=== PATIENT | male | born 1975 | race Caucasian/White ===

== ENCOUNTER 2018-02-05 14:24 | Emergency (ER) | payer MEDICAID, SELFPAY ==
[2018-02-05 14:25] VITALS: BP 154/84; PULSE 106; RESP 18; TEMP 36.6; O2SAT 99; BMI 34.2
--- NOTE | 2018-02-05 15:15 | ED.DEP ---
ED Disposition - Plan for ED Patient: Chief Complaint: Back Instructions: ED Neck Back Pain General Prescriptions: Naproxen [Naprosyn] 500 mg PO BID #14 tablet Cyclobenzaprine [Flexeril] 10 mg PO TID PRN #20 tablet PRN Reason: Muscle Spasm Referrals: Eric Pichardo DO [Primary Care Provider] -
--- NOTE | 2018-02-05 15:20 | ED.VISSUMM ---
- ER Visit Summary Date of Service: 02/05/18 Chief Complaint: Back pain History of Present Illness: The patient is a 42 M presenting with back pain. Patient states this started this morning. He has history of chronic back pain. He states it worsened this morning. He denies injury. Denies radiation. Denies weakness or numbness. Denies bowel or bladder incontinence. He states the pain was too severe for him to go to work today. He did not try any medications at home. Physical Examination: Vitals are stable. Patient is afebrile. Alert no acute distress. HEENT exam is unremarkable. Neck is supple. Lungs are clear and equal bilaterally. Heart is regular rate and rhythm. Abdomen is soft nontender nondistended. No rebound or guarding Back: bilateral paraspinal lumbar muscle tenderness, no midline tenderness Extremities are unremarkable. Skin is warm and dry. No focal neurologic deficit. Normal strength and sensation Remainder of exam is unremarkable. Emergency Department Course and Treatment: Patient is given morphine, Zofran IM. He is advised to follow-up with his primary care physician. He is given a prescription for Naprosyn and Flexeril. Advised return to ED if worsening complaints. Disposition: Discharge home Impression: Acute on chronic back pain This note was generated with [employer] dictation software. It may contain incorrect words, spelling, and punctuation that were not noted in review of the chart prior to signing ED Disposition - Plan for ED Patient: Chief Complaint: Back Instructions: ED Neck Back Pain General Prescriptions: Naproxen [Naprosyn] 500 mg PO BID #14 tablet Cyclobenzaprine [Flexeril] 10 mg PO TID PRN #20 tablet PRN Reason: Muscle Spasm Referrals: Eric Pichardo DO [Primary Care Provider] -
[2018-02-05] MEDS: morphine 10 MG/ML Syringe 8 MG IM (15:25)
[2018-02-05] MEDS: Ondansetron 4 MG/2 ML Vial IM (15:25)
[2018-02-05 15:49] VITALS: RESP 18; O2SAT 98
== END 2018-02-05 15:50 | disposition home or self-care (01) ==
PROVIDERS: Emergency Provider Emergency Medicine; Family Provider Student in an Organized Health Care Education/Training Program; PCP Student in an Organized Health Care Education/Training Program
DX: M54.5 Low back pain (principal); G89.29 Other chronic pain; K21.9 Gastro-esophageal reflux disease without esophagitis
CPT/HCPCS: 96372; 99282; J2405

== ENCOUNTER 2019-03-29 13:07 | Emergency (ER) | payer MEDICAID, SELFPAY ==
[2019-03-29 13:08] VITALS: BP 169/101; PULSE 100; RESP 18; TEMP 36.6; O2SAT 99; BMI 43.2
--- NOTE | 2019-03-29 13:20 | ED.VIS.GEN ---
History of Present Illness Chief Complaint: Lower Extremity Injury Informant: Patient Current Severity: Moderate Maximum Severity: Moderate Narrative: Patient presents with 2-month history of right hip pain. No known injury, he is able to ambulate it is on the side of his hip, he has no abdominal pain no groin tenderness. His pain is mild worse with movement. 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 Smoking Status: Former smoker Review of Systems Gastrointestinal: Denies: Abdominal pain Musculoskeletal: Reports: - - Right hip pain Skin: Denies: Wounds Neurological: Denies: Weakness Psych: Denies: Depression Hematologic: Denies: Easy bruising Physical Exam Vital Signs/Narrative: Vital Signs Temp Pulse Resp BP Pulse Ox 03/29/19 13:08 98 F 100 18 169/101 H 99 General: Well nourished Eyes: Perrl, - - Enucleated right eye ENT: Moist mucous membranes Cardiovascular: Regular rate Respiratory: No distress Abdomen: Soft Back: - - Nontender, no spinal or paraspinal Extremities: - - Tenderness over the right greater trochanter. There is some tenderness over the pelvis. Pelvis is intact. There is no SI joint tenderness in palpating the buttocks there is no groin tenderness and no tenderness with logrolling flexion or extension. Neurological: Normal Strength, Normal Sensation, Normal Gait Diagnostic/Tx/Re-eval - Medical Decision Making Patient is a normal x-ray. This is either IT band or bursitis in nature, regardless he will be treated conservatively and discharged with follow-up. ED Disposition - Plan for ED Patient: Disposition: Home or Assisted Living Diagnosis: Hip pain, Patient in stable condition at discharge Instructions: Lower Body Exercises: Hip Flexor Prescriptions: Naproxen [Naprosyn] 500 mg PO BID PRN #20 tab Prescription Printed Referrals: Eric Pichardo DO [Primary Care Provider] -
--- NOTE | 2019-03-29 13:28 | RAD_ITS ---
STUDY: X-RAY - PELVIS AND RIGHT HIP REASON FOR EXAM: Male, 43 years old. Pain. TECHNIQUE: 3 views of the pelvis and hip. COMPARISON: None. FINDINGS: There is a non-specific bowel gas pattern. Normal visualized soft tissue structures. Normal bilateral iliac wings, sacroiliac joints and visualized sacrum. Normal bilateral superior and inferior pubic rami. Normal pubic symphysis. Normal bilateral ischial tuberosities. Normal visualized femoral head. Normal acetabulum. Normal hip joint. RAD/HIP, UNI W/ Pelvis 2-3 Views IMPRESSION: Normal x-ray examination of the pelvis and hip. Electronically Signed: Nate Worthy, at 13:57 EST , Service support ,
[2019-03-29 13:57] VITALS: RESP 18
[2019-03-29 14:01] VITALS: RESP 18
== END 2019-03-29 14:09 | disposition home or self-care (01) ==
PROVIDERS: Emergency Provider Emergency Medicine; Family Provider Student in an Organized Health Care Education/Training Program; PCP Student in an Organized Health Care Education/Training Program
DX: M25.551 Pain in right hip (principal); Z87.891 Personal history of nicotine dependence
CPT/HCPCS: 73502; 99283

== ENCOUNTER 2019-06-29 14:21 | Emergency (ER) | payer MEDICAID, SELFPAY ==
[2019-06-29 14:22] VITALS: BP 155/93; PULSE 85; RESP 16; TEMP 36.6; O2SAT 97; BMI 42.5
[2019-06-29] MEDS: Tetracaine 0.5% Ophthalmic Bottle OPHTHALMIC (15:43)
[2019-06-29] MEDS: Fluorescein 1 MG STRIP 1 STRIP OPHTHALMIC (15:44)
--- NOTE | 2019-06-29 16:13 | ED.DCSUM_ITS ---
- ER Visit Summary Date of Service: 06/29/19 Chief Complaint: Left eye pain and redness History of Present Illness: The patient is a 44 M who presents with redness and pain to his left eye that has been getting worse over the past 4 days. Patient states he feels like there may be a foreign body in his eye. Patient is unsure if there is anything in his eye though. Patient admits to some redness and purulent drainage. Patient admits to some crusting and photophobia. Patient also admits to some blurred vision. Patient states he wears reading glasses. Physical Examination: Vital signs are stable. Patient is afebrile. Patient is in no acute distress. The left pupil is round and reactive. Conjunctiva is injected. There is no purulent discharge or drainage. Anterior chamber is clear. There is no hyphema. There are no foreign bodies visualized. Tetracaine and fluorescein dye was applied. There are no corneal abrasions. Funduscopic exam was not well visualized due to patient cooperation. Heart was regular rate and rhythm. Lungs are clear and equal bilaterally. Cranial nerves II through XII are intact. There are no focal motor or sensory deficits. Emergency Department Course and Treatment: Tetracaine and fluorescein dye was applied. There were no foreign bodies or corneal abrasions noted under slit- lamp examination. Patient was given a prescription for gentamicin ophthalmic drops. Patient was instructed to follow-up with his primary care physician in 1 to 2 days for reevaluation. Patient understood and was agreeable with the plan. All questions were answered. Disposition: Discharge home Impression: Conjunctivitis left eye This note was generated with [employer] dictation software. It may contain incorrect words, spelling, and punctuation that were not noted in review of the chart prior to signing ED Disposition - Plan for ED Patient: Disposition: Home or Assisted Living Diagnosis: Conjunctivitis Instructions: CONJUNCTIVITIS, Bacterial Prescriptions: Gentamicin Ophthalmic Drops [Garamycin Ophthalmic Drops] 2 drp LEFT EYE Q4 #1 [email or web address] Prescription Printed Referrals: Eric Pichardo DO [Primary Care Provider] - 2 Days
== END 2019-06-29 16:36 | disposition home or self-care (01) ==
PROVIDERS: Emergency Provider Emergency Medicine; PCP Student in an Organized Health Care Education/Training Program
DX: H10.9 Unspecified conjunctivitis (principal); K21.9 Gastro-esophageal reflux disease without esophagitis; F90.9 Attention-deficit hyperactivity disorder, unspecified type; F32.9 Major depressive disorder, single episode, unspecified; Z79.899 Other long term (current) drug therapy
CPT/HCPCS: 99283

== ENCOUNTER 2019-09-01 17:07 | Emergency (ER) | payer MEDICAID, SELFPAY ==
[2019-09-01 17:08] VITALS: BP 157/93; PULSE 109; RESP 14; TEMP 36.8; O2SAT 98; BMI 29.6
--- NOTE | 2019-09-01 17:23 | ED.VIS.GEN ---
History of Present Illness Chief Complaint: Laceration Informant: Patient Onset: Today Maximum Severity: Mild Narrative: Coronavirus?emergency no exposures, patient is right-hand dominant presents with laceration of only the palm of the left hand that occurred when he inadvertently fell striking his hand against a glass coffee table edge he does not believe any glasses in the wound, the glass did break, he has no loss of function no numbness weeks paresthesias laceration no other complaints Past Medical History - Allergies and Home Meds Allergies/Adverse Reactions: Allergies No Known Allergies Allergy (Verified 09/01/19 17:08) Primary Care Physician: Eric Pichardo DO [Primary Care Provider] - Past Medical History: - - Includes as above and none Smoking Status: Former smoker Review of Systems General: Denies: Chills, Fever, Sweats Eyes: Denies: Visual changes - bilaterally, Diplopia ENT: Denies: Rhinorrhea, Sore throat Cardiovascular: Denies: Chest pain, Palpitations Respiratory: Denies: Dyspnea, Cough, Dyspnea on exertion Gastrointestinal: Denies: Abdominal pain, Nausea, Vomiting, Diarrhea, Melena, Hematochezia Genitourinary: Denies: Dysuria, Hematuria, Frequency Musculoskeletal: Reports: Extremity Pain, - - Left hand there is a curvilinear laceration involving the palm of the left hand towards the knuckles he has full range of motion to the MCP PIP and DIP joint flexion extension of all digits thumb function is intact the wrist is nontender there is no bony injury there is no signs of any obvious foreign bodies. Denies: Back pain Skin: Denies: Rash, Wounds Neurological: Denies: Headache, Weakness, Numbness Physical Exam Vital Signs/Narrative: Vital Signs Temp Pulse Resp BP Pulse Ox 09/01/19 17:08 98.3 F 109 H 14 157/93 H 98 Extremities: - - Left hand there is a curvilinear laceration involving the palm of the left hand towards the knuckles he has full range of motion to the MCP PIP and DIP joint flexion extension of all digits thumb function is intact the wrist is nontender there is no bony injury there is no signs of any obvious foreign bodies Diagnostic/Tx/Re-eval - Medical Decision Making X-rays obtained showed no foreign body nothing acute per radiology see that report wound care standard dental prepped lidocaine local anesthetic prep no foreign body seen with nylon with good results bulky hand dressing wound care instructions given sutures out in 7 to 10 days return for change in symptoms concept was noted discussing the concept of occult injury such as to attention bone or other structure he understands he will be referred to plastic surgery for further management and wound suture removal Home stable Final impression 4 cm curvilinear laceration palm left hand ED Disposition - Plan for ED Patient: Instructions: ED Laceration All Closures, ED Laceration Hand Referrals: Eric Pichardo DO [Primary Care Provider] - Eligio Mederos MD [STAFF PHYSICIAN] -
--- NOTE | 2019-09-01 17:30 | RAD_ITS ---
STUDY: X-RAY - LEFT HAND REASON FOR EXAM: Male, 44 years old. Laceration from glass to anterior hand in area of 2nd metacarpal and to anterior thumb. TECHNIQUE: 3 view(s) of the hand. COMPARISON: None. FINDINGS: Normal radiocarpal articulation. Normal distal radioulnar joint. Normal visualized carpal bones. Normal carpal articulations Normal carpometacarpal articulation of the thumb. Normal second through fifth carpometacarpal joints. Normal metacarpi. Normal metacarpophalangeal joint of the thumb. Normal interphalangeal joint of the thumb. Normal proximal and distal phalanges of the thumb. Normal metacarpophalangeal joints of the second through fifth fingers. Normal proximal and distal interphalangeal joints of the second through fifth fingers. Normal phalanges of the second through fifth fingers. Borderline dorsal soft tissue swelling at the wrist. Submillimeter degenerative calcification projects in the soft tissues of the distal ulnocarpal joint space. No radiopaque foreign body. No demonstrated acute fracture. RAD/Hand Min 3 Views IMPRESSION: No radiopaque foreign body seen. No demonstrated acute fracture of the left hand. Electronically Signed: Juve Ruiz MD at 17:46 EDT , Service support ,
[2019-09-01 18:48] VITALS: RESP 16
== END 2019-09-01 18:48 | disposition home or self-care (01) ==
LOC: ED 17:56
PROVIDERS: Emergency Provider Emergency Medicine; PCP Student in an Organized Health Care Education/Training Program
DX: S61.412A Laceration without foreign body of left hand, initial encounter (principal); W25.XXXA Contact with sharp glass, initial encounter; Y93.9 Activity, unspecified; Y92.9 Unspecified place or not applicable; Z87.891 Personal history of nicotine dependence
CPT/HCPCS: 12002; 73130; 99283

== ENCOUNTER 2020-10-12 22:15 | Emergency (ER) | payer MEDICAID, SELFPAY ==
[2020-10-12 22:16] VITALS: BP 141/78; PULSE 124; RESP 16; TEMP 36.2; O2SAT 97; BMI 44.2
[2020-10-12 22:19] VITALS: BP 141/78; PULSE 124; RESP 16; TEMP 36.2; O2SAT 97
--- NOTE | 2020-10-12 22:44 | RAD_ITS ---
STUDY: X-RAY CHEST REASON FOR EXAM: Male, 45 years old. Cough TECHNIQUE: Single frontal view of the chest. COMPARISON: 09/02/2016 FINDINGS: The lungs are clear and expanded. There is no demonstrated pleural abnormality. Normal size heart. Normal mediastinum and hamida. Normal visualized pulmonary arteries. Normal visualized aortic arch and descending thoracic aorta. Normal visualized thoracic spine. Normal visualized ribs, clavicles, and shoulders. There is no demonstrated abnormality of the visualized soft tissue structures of the upper abdomen. RAD/Chest 1 View (Portable) IMPRESSION: Normal x-ray examination of the chest. Electronically Signed: Fabricio Armas MD at 23:42 EDT , Service support ,
--- NOTE | 2020-10-12 22:44 | CT_ITS ---
INDICATION: Left sided pain EXAMINATION: CT Abdomen And Pelvis W/O Contrast Injection TECHNIQUE: Helically acquired images were obtained of the abdomen and pelvis without the use of IV contrast. A radiation dose optimization technique was used for this scan. Oral contrast: None. COMPARISON: 05/15/2017 FINDINGS: Evaluation of the solid organs and vascular structures is limited without intravenous contrast. Visualized lung bases: Unremarkable Liver: Diffusely hypodense consistent with fatty liver. Gallbladder: Unremarkable Spleen: Multiple splenic granulomas. Pancreas: Unremarkable Adrenal Glands: Unremarkable Kidneys: Scattered too small to characterize subcentimeter hypodensities bilaterally. Mild bilateral nonspecific perinephric fat stranding. Vasculature: Unremarkable GI Tract: Unremarkable Lymphadenopathy: None Peritoneum: No ascites. Bladder: Unremarkable Reproductive organs: There are prostatic calcifications. Bones/Soft tissues: Mild scattered degenerative changes of the visualized spine. CT/Abdomen/Pelvis without Cont IMPRESSION: No acute abnormalities in the abdomen or pelvis. Mild bilateral nonspecific perinephric fat stranding. Fatty liver. Electronically Signed: Sandeep Montalvo MD at 23:32 EDT Tel , Service support ,
[2020-10-12] MEDS: 0.9% Normal Saline 1,000 ML 1000 ML IV (23:03)
[2020-10-12] MEDS: Ketorolac 15 MG/ML Vial IV (23:03)
[2020-10-12] MEDS: Ondansetron 4 MG/2 ML Vial IV (23:03)
[2020-10-12 23:25] LABS: Absolute Lymphocyte Count 3.38 X10^3/uL (0.83-4.51); Absolute Neutrophil Count 6.1 X10^3/uL (2.0-7.7); Basophil# 0.06 X10^3/uL; Basophil% 0.5 % (0-1); Eosinophil# 0.19 X10^3/uL; Eosinophils% 1.7 % (0-5); Hematocrit 40.1 % (40-54); Hemoglobin 13.3 g/dL (13.0-16.5); Lymphocyte # 3.38 X10^3/ul (0.83-4.51); Lymphocyte % 30.4 % (19-41); Mean Corp Hgb Conc 33.2 g/dL (32-36); Mean Corpuscular Volume 84.4 fL (80-94); Mean Platelet Vol. 9.8 fl (6.2-12.0); Monocyte# 1.27 X10^3/uL; Monocyte% 11.4 % (0-10); NRBC Flagged by Analyzer 0 % (0-5); Platelet Count 309 K/mm3 (150-450); RBC Distribution Width CV 12.8 % (11.6-14.6); Red Blood Count 4.75 M/mm3 (4.6-6.2); White Blood Count 11.1 K/mm3 (4.4-11.0)
[2020-10-12 23:33] LABS: ALB/GLOB Ratio 0.8 RATIO (0.9-2.4); AST(SGOT) 13 U/L (15-37); Alanine Aminotransfer ALT/SGPT 29 U/L (16-61); Albumin, Serum 3.2 g/dL (3.2-5.0); Alkaline Phosphatase 64 U/L (45-117); Anion Gap 7 (5-15); BUN 21 mg/dL (7-18); BUN/Creat Ratio 17.4 RATIO (10-20); Calcium,Total 8.9 mg/dL (8.5-10.1); Chloride 108 mmol/L (98-107); Creatinine, Serum 1.21 mg/dL (0.70-1.30); EST Glomerular Filtration Rate 69 mL/min (>60); Est Glom Filt Rate - Afr Amer 84 mL/min (>60); Estimated Creatinine Clearance 81.28 ml/min; Glucose 138 mg/dL (74-106); Lipase 94 U/L (73-393); Potassium 3.5 mmol/L (3.5-5.1); Protein, Total 7.2 g/dL (6.4-8.2); Sodium Level 142 mmol/L (136-145)
--- NOTE | 2020-10-13 00:35 | ED.VIS.GI ---
HPI HPI - GI History of Present Illness Chief Complaint: Abd Pain Narrative Narrative: 45-year-old male patient Dr. Pichardo reports that he has left lower quad abdominal pain that began today. It came on suddenly. Said dull, aching pain is 910 worst and 710 currently. Worsened by movement and coughing. Is relieved by remaining still. He denies any nausea, vomiting, or diarrhea. His last bowel movement was today. No matter medication. He does complain of frequent urination. No dysuria. Patient denies any penile discharge. No testicular pain. No fever or chills. Reports had a cough is productive of clear sputum for the past week. He denies any chest pain or shortness of breath. [facility] Medical History Arthritis History of eye injury Home Medications Omeprazole 1 tab PO DAILY 05/04/17 [History Last Taken Unknown] bupropion HCl 150 mg PO DAILY 06/29/19 [History Last Taken Unknown] estradiol 2 mg PO DAILY 10/12/20 [History Last Taken Unknown] cephalexin 500 mg PO Q12 #14 cap 10/13/20 [Rx Last Taken Unknown] Allergy/AdvReac Type Severity Reaction Status Date / Time No Known Allergies Allergy Verified 10/12/20 22:16 Surgical History History of carpal tunnel release Social History Smoking Status: Former smoker ROS ROS ED Constitutional Constitutional ED: Denies chills, fever(s) or sweats Eyes Eyes: Denies change in vision ENT ENT ED: Denies sore throat Cardiovascular Cardiovascular: Denies chest pain Respiratory/Chest Respiratory/Chest: Reports cough; Denies dyspnea or dyspnea on exertion Gastrointestinal Gastrointestinal: Reports abdominal pain; Denies diarrhea, melena, nausea or vomiting Genitourinary Genitourinary ED: Reports urinary frequency; Denies dysuria Musculoskeletal Musculoskeletal: Denies myalgias Integumentary Denies rash Neurologic Neurologic: Denies headache(s), paresthesias or weakness EXAM Physical Exam Const Vital Signs: 10/12/20 22:16 10/12/20 22:19 10/13/20 01:27 Temperature 97.2 F L 97.2 F L Temperature Source Temporal Temporal Pulse Rate 124 H 124 H Respiratory Rate 16 16 16 Blood Pressure 141/78 H 141/78 H Blood Pressure Mean 99 99 Pulse Ox 97 97 Oxygen Delivery Method Room Air Room Air Positive well nourished and well developed General Appearance ED: well developed HEENT Reports normocephalic and head/scalp atraumatic Eyes PERRL Neck no lymphadenopathy, supple and no JVD General: Negative for tenderness Resp normal respiratory effort and clear to auscultation bilaterally Cardio regular rate, regular rhythm and no murmurs GI normal to inspection, nondistended, normoactive bowel sounds and non-distended GI Narrative: Mild tenderness palpation left lower quadrant. No guarding, rebound, or peritoneal signs. Auscultation: normoactive bowel sounds Palpation: soft Narrative: Normal circumcised male. No testicular tenderness. No epididymal tenderness. Back/Spine Back/Spine Narrative: Nontender. Extremity General Extremety ED: Negative for edema or tenderness General Extremity: Negative for edema Neuro oriented x3, CN's II-XII intact bilaterally and no sensory deficits noted Sensorium / Orientation: alert Motor Exam: strength 5/5 throughout Psych mental status grossly normal Skin no rashes or lesions noted MDM MDM Lab Data Attestation: I reviewed the patient's lab results. Labs: Laboratory Results - last 24 hr 10/12/20 10/12/20 10/13/20 23:03 23:03 01:25 WBC 11.1 H RBC 4.75 Hgb 13.3 Hct 40.1 MCV 84.4 MCH 28.0 MCHC 33.2 RDW Std Deviation 39.0 RDW Coeff of Armin 12.8 Plt Count 309 MPV 9.8 Immature Gran % (Auto) 1.000 H Neut % (Auto) 55.0 Lymph % (Auto) 30.4 [place] % (Auto) 11.4 H Eos % (Auto) 1.7 Baso % (Auto) 0.5 Absolute Neuts (auto) 6.1 Absolute Lymphs (auto) 3.38 Nucleated RBC % 0 Sodium 142 Potassium 3.5 Chloride 108 H Carbon Dioxide 27.0 Anion Gap 7 BUN 21 H Creatinine 1.21 Estim Creat Clear Calc 81.28 Est GFR (MDRD) Af Amer 84 Est GFR (MDRD) Non-Af 69 BUN/Creatinine Ratio 17.4 Glucose 138 H Calcium 8.9 Total Bilirubin 0.20 AST 13 L ALT 29 Alkaline Phosphatase 64 Total Protein 7.2 Albumin 3.2 Globulin 4.0 Albumin/Globulin Ratio 0.8 L Lipase 94 Urine Color Yellow Urine Clarity Clear Urine pH 5.0 Ur Specific [place] 1.025 Urine Protein 100 H Urine Glucose (UA) Normal Urine Ketones Negative Urine Occult Blood 250 H Urine Nitrite Negative Urine Bilirubin Negative Urine Urobilinogen Normal Ur Leukocyte Esterase 25 H Urine RBC 0-5 SEEN Urine WBC 5-10 SEEN Ur Squamous Epith Cells 0-5 SEEN Urine Bacteria RARE Hyaline Casts 5-10 SEEN Urine Mucus 2+ Covid is negative. Radiography Diagnostic Testing: Radiology Impression Abdomen/Pelvis CT 10/12/20 22:44 IMPRESSION: No acute abnormalities in the abdomen or pelvis. Mild bilateral nonspecific perinephric fat stranding. Fatty liver. Electronically Signed: Sandeep Montalvo MD at 23:32 EDT Tel , Service support , Chest X-Ray 10/12/20 22:44 IMPRESSION: Normal x-ray examination of the chest. Electronically Signed: Fabricio Armas MD at 23:42 EDT , Service support , 1 view chest x-ray is read by me shows no acute disease. Treatment and Re-Evaluation Comments:: Emergency department course: Patient had an IV placed. He was given Toradol and Zofran IV. He is resting comfortably. Treatment plan: Patient will be discharged on Keflex. Instructed to follow-up with his primary care physician in 1 week if not improving. His urine was sent for culture. Return to the emergency department for any worsening symptoms. Disposition: To home in improved and stable condition. Discharge Plan Triage Chief Complaint: Abd Pain ED Provider: Kirit Ochoa Dx/Rx/DC Orders Clinical Impression: Acute UTI, Abdominal pain Instructions: ED Bladder Infection, Male (Adult) Prescriptions: New cephalexin [cephalexin] 500 MG capsule 500 mg PO Q12 Qty: 14 RF: 0 No Action Omeprazole Mg 1 tab PO DAILY RF: 0 bupropion HCl 150 MG tablet extended release 24 hr 150 mg PO DAILY RF: 0 estradiol 2 mg tablet 2 mg PO DAILY RF: 0 Primary Care Provider: Eric Pichardo Referrals: Eric Pichardo DO [Primary Care Provider] - 1 Week if not improving
[2020-10-13 01:27] VITALS: RESP 16
[2020-10-13 01:37] LABS: Color, Urine Yellow (Yellow); Glucose, Dipstick Normal (Normal); Ketone-Dipstick Negative (Negative); Leukocyte Esterase-Dipstick 25 /ul (Negative); Nitrite-Dipstick Negative (Negative); Occult Blood-Urine 250 /ul (Negative); Protein-Dipstick 100 mg/dl (Negative); Specific Gravity, Urine 1.025 (1.002-1.030); Urine Bilirubin Dipstick Negative (Negative); Urine Clarity Clear (Clear); Urine Urobilinogen Normal (Normal)
[2020-10-13 01:48] LABS: Bacteria RARE /hpf (None Seen); Hyaline Cast 5-10 SEEN /lpf (0-5); Mucous, Urine 2+ /hpf (<or=2+); Red Blood Cells-Urine 0-5 SEEN /hpf (0-5); Squamous Epithelial Cells - UA 0-5 SEEN /hpf (0-5); White Blood Cells 5-10 SEEN /hpf (0-5)
[2020-10-13 02:37] VITALS: PULSE 82; RESP 16; O2SAT 98
[2020-10-13] MEDS: Cephalexin 500 MG Capsule PO (02:38)
== END 2020-10-13 02:39 | disposition home or self-care (01) ==
LOC: ED 22:30
PROVIDERS: Emergency Provider Emergency Medicine; PCP Student in an Organized Health Care Education/Training Program
DX: N39.0 Urinary tract infection, site not specified (principal); M19.90 Unspecified osteoarthritis, unspecified site; Z87.891 Personal history of nicotine dependence
CPT/HCPCS: 71045; 74176; 80053; 81001; 83690; 85025; 87086; 87088; 87426; 96361; 96374; 96375; 99284; J7030; J2405

== ENCOUNTER 2021-11-29 10:34 | Emergency (ER) | payer MEDICAID, SELFPAY ==
[2021-11-29 10:34] VITALS: BP 116/83; PULSE 69; RESP 18; TEMP 36.6; O2SAT 99; BMI 45.0
--- NOTE | 2021-11-29 11:15 | EDS_ITS ---
HPI History of Present Illness Chief Complaint: Back Informant: patient Onset/Context/Timing Onset: Days (3) Context: Sudden Onset Timing: Continuous Quality: Sharp and Dull Location: Lumbar Worsened by: improves with Nothing Relieved by: Medications Associated Symptoms Associated Symptoms: Negative for Numbness, Tingling, Radiation to Right Leg, Radiation to Left Leg, Fever, Abdominal Pain, Dysuria, Unable to Ambulate, Unable to Transfer, Urinary Retention, Urinary Incontinence, Constipation or Fecal Incontinence Narrative Narrative: Patient presents with back pain that has been getting worse over the last 3 days. Patient states it has been constant. Patient states it began rather suddenly. Patient states he was doing some housework and sat down to take a break. Patient states that when he got up he felt pain in his low back. Patient describes the pain as dull but sharp at times. Patient states it is over the lower lumbar area. Patient states nothing makes it worse. Patient states he has been taking [id number] analgesics which have helped slightly. Patient denies any radiation of the pain. Patient denies any paresthesias or weakness. Patient denies any bowel or bladder changes. Patient denies any saddle anesthesia. [facility] Medical History (Updated 11/29/21 @ 11:[address] Morgan Agudelo DO) Arthritis Depression History of eye injury Hypercholesterolemia Home Medications Omeprazole 1 tab PO DAILY 05/04/17 [History Last Taken Unknown] bupropion HCl 150 mg 24 hr tablet, extended release 150 mg PO DAILY 06/29/19 [History Last Taken Unknown] estradiol 2 mg tablet 2 mg PO DAILY 10/12/20 [History Last Taken Unknown] cephalexin 500 mg capsule 500 mg PO Q12 #14 caps 10/13/20 [Rx Last Taken Unknown] cyclobenzaprine 10 mg tablet 10 mg PO QHS PRN PRN Muscle Spasm #10 TABLETS 11/29/21 [Rx Last Taken Unknown] naproxen 500 mg tablet 500 mg PO BID PRN #20 tabs 11/29/21 [Rx Last Taken Unknown] Allergy/AdvReac Type Severity Reaction Status Date / Time No Known Allergies Allergy Verified 11/29/21 10:36 Surgical History (Updated 11/29/21 @ 11:[address] Morgan Agudelo DO) History of carpal tunnel release History of facial surgery Social History Smoking Status: Current every day smoker tobacco type: cigarettes ROS ROS ED Constitutional Constitutional ED: Denies chills or fever(s) Eyes Eyes: Denies blurry vision or change in vision ENT ENT ED: Denies rhinorrhea or sore throat Cardiovascular Cardiovascular: Denies chest pain or palpitations Respiratory/Chest Respiratory/Chest: Denies cough or dyspnea Gastrointestinal Gastrointestinal: Denies nausea or vomiting Genitourinary Genitourinary ED: Denies dysuria or hematuria Musculoskeletal Musculoskeletal: Reports back pain; Denies neck pain Integumentary Denies abscess or rash Neurologic Neurologic: Denies headache(s) or weakness Allergic/Immunologic Allergic/Immunologic ED: Denies mouth swelling or urticaria EXAM Physical Exam Const Vital Signs: 11/29/21 10:34 Temperature 97.9 F Temperature Source Temporal Pulse Rate 69 Respiratory Rate 18 Blood Pressure 116/83 H Blood Pressure Mean 94 Pulse Ox 99 Oxygen Delivery Method Room Air Positive well nourished, well developed and obese General Appearance ED: well developed and NAD Nutritional Appearance: obese HEENT Reports moist mucous membranes Neck supple and no JVD Back/Spine Back/Spine Narrative: There is tenderness over the left lower lumbar paraspinal muscles. There is also some mild tenderness over the left sciatic notch. There is no midline tenderness. There is no bony crepitance or step-off. There is no edema or ecchymosis. Range of motion was limited in all motions of the lumbar spine secondary to pain. Strength is 5/5 bilaterally. There are no sensory deficits noted. Deep tendon reflexes are 2+/4 bilaterally in the lower extremities. Lumbar Spine / Lower Back: ROM limited Neuro oriented x3 and no sensory deficits noted Sensorium / Orientation: alert Motor Exam: strength 5/5 throughout Deep Tendon Reflexes: Rt Patellar (L4): 2+, Lt Patellar (L4): 2+, Rt Ankle (S1): 2+ and Lt Ankle (S1): 2+ Deep Tendon Reflexes Back: Rt Patellar (L4): 2+, Lt Patellar (L4): 2+, Rt Ankle (S1): 2+ and Lt Ankle (S1): 2+ Psych mental status grossly normal Skin no rashes or lesions noted MDM MDM MDM Narrative Medical decision making narrative: Patient was advised that this is most likely a muscular strain. I do not feel there is any indication for x-rays at this time. Patient was given prescriptions for Naprosyn and Flexeril. Patient was instructed to use ice to the area. Patient was instructed to follow-up with his primary care physician in 5 to 7 days. Patient understood and was agreeable with the plan. All questions were answered. Discharge Plan Triage Chief Complaint: Back ED Provider: Morgan Agudelo Dx/Rx/DC Orders Clinical Impression: Acute lumbosacral myofascial strain, Low back pain Instructions: ED Back Sprain/Strain Prescriptions: New cyclobenzaprine [cyclobenzaprine] 10 MG tablet 10 mg PO QHS PRN PRN (Reason: Muscle Spasm) Qty: 10 0RF naproxen 500 MG tablet 500 mg PO BID PRN Qty: 20 0RF No Action Omeprazole Mg 1 tab PO DAILY bupropion HCl 150 MG tablet extended release 24 hr 150 mg PO DAILY estradiol 2 mg tablet 2 mg PO DAILY cephalexin [cephalexin] 500 MG capsule 500 mg PO Q12 Qty: 14 0RF Stand Alone Forms: Work Status Form Primary Care Provider: Eric Pichardo Referrals: Eric Pichardo DO [Primary Care Provider] - 5-7 Days Disposition Disposition: Home, Self Care
== END 2021-11-29 11:39 | disposition home or self-care (01) ==
PROVIDERS: Emergency Provider Emergency Medicine; PCP Student in an Organized Health Care Education/Training Program; Visit Provider Emergency Medicine
DX: S39.012A Strain of muscle, fascia and tendon of lower back, initial encounter (principal); Z68.42 Body mass index [BMI] 45.0-49.9, adult; F17.210 Nicotine dependence, cigarettes, uncomplicated; E78.00 Pure hypercholesterolemia, unspecified; F32.A Depression, unspecified; Z79.899 Other long term (current) drug therapy; X58.XXXA Exposure to other specified factors, initial encounter; E66.9 Obesity, unspecified
CPT/HCPCS: 99282

== ENCOUNTER 2023-05-14 22:46 | Emergency (ER) | payer SELFPAY ==
[2023-05-14 22:48] VITALS: BP 221/105; PULSE 92; RESP 18; TEMP 36.6; O2SAT 99
--- NOTE | 2023-05-14 22:55 | RAD_ITS ---
EXAM: XR LEFT TOES, 2 OR MORE VIEWS CLINICAL INDICATION: GLASS FELL ON IT TECHNIQUE: Frontal, lateral and oblique views of the toes of the left foot. COMPARISON: No relevant prior studies available. FINDINGS: BONES/JOINTS: Oblique fracture through the tuft of distal phalanx, first toe. No dislocation. SOFT TISSUES: Soft tissue swelling of the first toe. No radiopaque foreign body. RAD/Toe(s) Min 2 Views IMPRESSION: Oblique fracture through the tuft of distal phalanx, first toe. Electronically Signed: Josafat Mas MD at 23:10 EST ,
--- NOTE | 2023-05-14 23:37 | ED.VIS.LOWEX ---
HPI History of Present Illness HPI Narrative: Patient presents with injury to his left great toe that occurred earlier this morning. Patient states that a heavy glass fell onto his left great toe. Patient states that he applied pressure and cleaned the wound and the bleeding stopped. Patient describes the pain as stabbing. Patient states his pain is worse with any movement or palpation. Patient is nothing seems to help with the pain. Patient denies any paresthesias or weakness. Patient is unsure of his last tetanus. Chief Complaint: Lower Extremity Injury Informant: patient Occured/Mechanism Mechanism/Context: Yes blunt trauma and Yes direct blow Onset/Context/Timing Onset: Today and Hours (16) Context: Sudden Onset Timing: Continuous Quality of Pain: Stabbing Location: Left great toe Worsened by: Weightbearing, palpation Relieved by: Nothing Associated Symptoms Associated Symptoms: Negative for Parasthesia, Weakness or Loss of Funtion Narrative Tetanus Immunization: >10 years [facility] Medical History Arthritis Depression History of eye injury Hypercholesterolemia Home Medications Omeprazole 1 tab PO DAILY 05/04/17 [History Last Taken Unknown] bupropion HCl 150 mg 24 hr tablet, extended release 150 mg PO DAILY 06/29/19 [History Last Taken Unknown] estradiol 2 mg tablet 2 mg PO DAILY 10/12/20 [History Last Taken Unknown] cyclobenzaprine 10 mg tablet 10 mg PO QHS PRN PRN Muscle Spasm #10 TABLETS 11/29/21 [Rx Last Taken Unknown] naproxen 500 mg tablet 500 mg PO BID PRN #20 tabs 11/29/21 [Rx Last Taken Unknown] cephalexin 500 mg capsule 500 mg PO 4X/DAY #40 caps 05/14/23 [Rx Last Taken Unknown] hydrocodone-acetaminophen 5-325mg 5mg-325mg 1 tab PO Q6H PRN PRN Pain 3 days #10 TABLETS 05/14/23 [Rx Last Taken Unknown] Allergy/AdvReac Type Severity Reaction Status Date / Time No Known Allergies Allergy Verified 05/14/23 22:51 Surgical History History of carpal tunnel release History of facial surgery Social History Smoking Status: Former smoker ROS ROS ED Constitutional Constitutional ED: Denies chills or fever(s) Eyes Eyes: Denies blurry vision or change in vision ENT ENT ED: Denies rhinorrhea or sore throat Cardiovascular Cardiovascular: Denies chest pain or palpitations Respiratory/Chest Respiratory/Chest: Denies cough or dyspnea Gastrointestinal Gastrointestinal: Denies nausea or vomiting Genitourinary Genitourinary ED: Denies dysuria or hematuria Musculoskeletal Musculoskeletal: Reports back pain; Denies neck pain Integumentary Denies abscess or rash Neurologic Neurologic: Reports headache(s); Denies weakness Allergic/Immunologic Allergic/Immunologic ED: Denies mouth swelling or urticaria EXAM Physical Exam Const Vital Signs: 05/14/23 22:48 Temperature 97.8 F Temperature Source Temporal Pulse Rate 92 Respiratory Rate 18 Blood Pressure 221/105 H Blood Pressure Mean 143 Pulse Ox 99 Oxygen Delivery Method Room Air Positive well nourished, well developed and obese General Appearance ED: well developed and NAD Nutritional Appearance: obese HEENT Reports moist mucous membranes Neck full ROM and supple Extremity Extremity Narrative: There is tenderness and edema over the distal phalanx of the left great toe. There is no obvious deformity noted. There is a superficial laceration at the base of the eponychium of the left great toe. There is minimal gapping of the wound margins. There is no active bleeding noted. Range of motion was limited in all motions of the left great toe secondary to pain. Sensation was intact to light touch in all digits. Capillary refill was less than 2 seconds in all digits. Neuro oriented x3, CN's II-XII intact bilaterally, moves all extremities and no sensory deficits noted Sensorium / Orientation: alert Motor Exam: strength 5/5 throughout Psych mental status grossly normal [facility] MDM Radiography Diagnostic Testing: Clinical Impression(s) from Imaging Studies Toe X-Ray 05/14/23 22:55 IMPRESSION: Oblique fracture through the tuft of distal phalanx, first toe. Electronically Signed: Josafat Mas MD at 23:10 EST , X-rays of the left great toe were obtained. There are 3 views. On my independent interpretation, there is a nondisplaced fracture of the distal tip of the distal phalanx. There are no foreign bodies noted. Radiologist also interpreted the x-ray and agrees. Treatment and Re-Evaluation Narrative: Patient was given a dose of Keflex here. Patient was also given a tetanus booster. Patient was also given a dose of clonidine for his hypertension of 221/105. Patient was given a postop shoe. Patient was instructed to ice and elevate the left foot. Patient was given a prescription for Keflex. Patient was also given a prescription for a short course of [place]. Patient was instructed to follow-up with his primary care physician in 5 to 7 days. Patient was also given a referral for podiatry. Patient understood and was agreeable with the plan. All questions were answered. Discharge Plan Triage Chief Complaint: Lower Extremity Injury ED Provider: Morgan Agudelo Dx/Rx/DC Orders Clinical Impression: Open fracture of distal phalanx of left great toe, Elevated blood pressure reading without diagnosis of hypertension Instructions: ED Fracture, Toe, Open Prescriptions: New hydrocodone-acetaminophen [hydrocodone-acetaminophen] 5-325 mg tablet 1 tab PO Q6H PRN PRN (Reason: Pain) 3 Days Qty: 10 0RF Changed cephalexin 500 MG capsule 500 mg PO 4X/DAY Qty: 40 0RF No Action Omeprazole Mg 1 tab PO DAILY bupropion HCl 150 MG tablet extended release 24 hr 150 mg PO DAILY estradiol 2 mg tablet 2 mg PO DAILY cyclobenzaprine [cyclobenzaprine] 10 MG tablet 10 mg PO QHS PRN PRN (Reason: Muscle Spasm) Qty: 10 0RF naproxen 500 MG tablet 500 mg PO BID PRN Qty: 20 0RF Primary Care Provider: Eric Pichardo Referrals: Eric Pichardo DO [Primary Care Provider] - Disposition Disposition: Home, Self Care
[2023-05-14 23:50] VITALS: BP 188/102
[2023-05-14] MEDS: Diphth,Pertuss(Acell),Tet Vac 0.5 ML Vial IM (23:50)
[2023-05-14] MEDS: Cephalexin 500 MG Capsule PO (23:52)
[2023-05-15] MEDS: cloNIDine HCl 0.2 MG Tablet PO (00:04)
[2023-05-15 00:06] VITALS: BP 187/100; PULSE 89; RESP 15; O2SAT 97
== END 2023-05-15 00:07 | disposition home or self-care (01) ==
PROVIDERS: Emergency Provider Emergency Medicine; PCP Student in an Organized Health Care Education/Training Program; Visit Provider Emergency Medicine
DX: S92.425B Nondisplaced fracture of distal phalanx of left great toe, initial encounter for open fracture (principal); W22.8XXA Striking against or struck by other objects, initial encounter; E78.00 Pure hypercholesterolemia, unspecified; R03.0 Elevated blood-pressure reading, without diagnosis of hypertension; E66.9 Obesity, unspecified; Z79.899 Other long term (current) drug therapy; Z87.891 Personal history of nicotine dependence; Z23 Encounter for immunization
CPT/HCPCS: 73660; 90715; 99284

== ENCOUNTER 2023-10-21 14:07 | Emergency (ER) | payer SELFPAY ==
[2023-10-21 14:08] VITALS: BP 188/98; PULSE 109; RESP 18; TEMP 36.3; O2SAT 100; BMI 44.7
--- NOTE | 2023-10-21 15:10 | EDS_ITS ---
HPI HPI - URI History of Present Illness Chief Complaint: Cough Detail of Chief Complaint: Cough Informant: patient Narrative Narrative: Patient presents with a cough that he had for 1 month. He denies chest pain. Denies significant shortness of breath. Has had no fever. At times he is felt hot and cold. Sometimes she will cough so hard that he actually throws up. Denies sick contacts. He has not seen his primary care physician for this. He denies recent travel or surgery. No history of PE or DVT. ROS ROS ED Review of Systems ROS Unobtainable: other Constitutional Constitutional ED: Reports lethargy; Denies chills, fever(s), sweats or weight loss Eyes Eyes: Denies blurry vision, change in vision or diplopia ENT ENT ED: Denies rhinorrhea or sore throat Cardiovascular Cardiovascular: Denies chest pain, orthopnea or racing heartbeat Respiratory/Chest Respiratory/Chest: Reports cough; Denies dyspnea, dyspnea on exertion, orthopnea or sputum Gastrointestinal Gastrointestinal: Denies abdominal pain, diarrhea, nausea or vomiting Genitourinary Genitourinary ED: Denies dysuria, hematuria or urinary frequency Musculoskeletal Musculoskeletal: Denies arthralgias, back pain, myalgias or neck pain Integumentary Denies abscess, Abrasions or rash Neurologic Neurologic: Denies headache(s) or weakness Psychiatric Psychiatric: Denies anxiety, depression or suicidal thoughts Endocrine Endocrinology: Denies polydipsia, polyphagia or polyuria Hematologic/Lymphatic Hematologic/Lymphatic: Denies easy bleeding, easy bruising or lymphadenopathy Allergic/Immunologic Allergic/Immunologic ED: Denies mouth swelling, tongue swelling or urticaria PFSH PFSH Medical History Arthritis Depression History of eye injury Hypercholesterolemia Home Medications ?Medication ?Instructions ?Recorded ?Last Taken ?Type Omeprazole 1 tab PO DAILY 05/04/17 Unknown History bupropion HCl 150 mg 24 hr tablet, 150 mg PO DAILY 06/29/19 Unknown History extended release estradiol 2 mg tablet 2 mg PO DAILY 10/12/20 Unknown History cyclobenzaprine 10 mg tablet 10 mg PO QHS PRN PRN Muscle Spasm 11/29/21 Unknown Rx #10 TABLETS naproxen 500 mg tablet 500 mg PO BID PRN #20 tabs 11/29/21 Unknown Rx cephalexin 500 mg capsule 500 mg PO 4X/DAY #40 caps 05/14/23 Unknown Rx hydrocodone-acetaminophen 5-325mg 1 tab PO Q6H PRN PRN Pain 3 days 05/14/23 Unknown Rx 5mg-325mg #10 TABLETS prednisone 20 mg tablet 20 mg PO BID #10 tabs 10/21/23 Unknown Rx Allergy/AdvReac Type Severity Reaction Status Date / Time No Known Allergies Allergy Verified 10/21/23 14:10 Surgical History History of carpal tunnel release History of facial surgery Social History Smoking Status: Former smoker EXAM Physical Exam Const Vital Signs: 10/21/23 14:08 10/21/23 14:08 Temperature 97.3 F L Temperature Source Temporal Pulse Rate 109 H Respiratory Rate 18 Respiratory Effort Normal Respiratory Depth Normal Respiratory Pattern Normal Blood Pressure 188/98 H Blood Pressure Mean 128 Pulse Ox 100 Oxygen Delivery Method Room Air Room Air Positive well nourished and well developed General Appearance ED: well developed and NAD HEENT Reports TM's clear and moist mucous membranes normocephalic and atraumatic; Negative for trauma or tenderness Tympanic Membrane ED: Yes TM's clear Eyes PERRL and EOMs intact bilaterally General Eye ED: Negative for pale conjunctiva or scleral icterus Neck no lymphadenopathy, supple and no JVD General: Negative for tenderness Chest Wall inspection of chest normal and palpation of chest normal Chest: Negative for tenderness Resp normal respiratory effort and clear to auscultation bilaterally Effort and Inspection: Negative for respiratory distress or pain with movement Auscultation: Negative for rhonchi, wheezes or diminished lung sounds Cardio regular rate, regular rhythm, S1 normal heart sound, S2 normal heart sound and no murmurs Peripheral Pulses: pulses 2+ throughout GI normal to inspection, nondistended, normoactive bowel sounds, soft to palpation, non-tender, non-distended and no masses Back/Spine no CVA tenderness and no thoracic nor lumbar tenderness Extremity normal to inspection General Extremety ED: Negative for edema General Extremity: Negative for edema Neuro oriented x3, CN's II-XII intact bilaterally, no sensory deficits noted and gait normal Sensorium / Orientation: awake, alert, oriented to person, oriented to place and oriented to time Motor Exam: strength 5/5 throughout and strength abnormal Psych mental status grossly normal Skin no rashes or lesions noted and no wounds MDM MDM MDM Narrative Medical decision making narrative: Patient presents with cough x 1 month. Clinically looks well. Did have a slight tachycardia on arrival. IV line established. CBC with differential white count of 9.0 with hemoglobin 14.5 and platelet count of 255. Chemistries were unremarkable. D-dimer normal at 0.42. 1 view chest x-ray obtained was normal without signs of infection. COVID flu and RSV testing was negative. Discussed results with patient. Etiology of his cough unclear although it could be postinfectious versus GERD versus allergic. He is not on a NAIDA inhibitor. This point recommended prednisone short course and follow-up with primary care physician. Patient advised to return if fever, increased shortness of breath, or condition should worsen anyway. Lab Data Attestation: I reviewed the patient's lab results. Labs: Laboratory Results - last 24 hr 10/21/23 15:20 WBC 9.0 RBC 5.50 Hgb 14.5 Hct 45.2 MCV 82.2 MCH 26.4 L MCHC 32.1 RDW Std Deviation 40.0 RDW Coeff of Armin 13.5 Plt Count 255 MPV 10.1 Immature Gran % (Auto) 0.600 Neut % (Auto) 60.6 Lymph % (Auto) 24.0 [place] % (Auto) 11.8 H Eos % (Auto) 2.4 Baso % (Auto) 0.6 Absolute Neuts (auto) 5.5 Absolute Lymphs (auto) 2.16 Nucleated RBC % 0 D-Dimer Quant (PE/DVT) 0.42 Sodium 141 Potassium 3.9 Chloride 109 H Carbon Dioxide 27.0 Anion Gap 5 BUN 16 Creatinine 0.98 Estim Creat Clear Calc 141.84 Est GFR (MDRD) Af Amer 106 Est GFR (MDRD) Non-Af 88 BUN/Creatinine Ratio 16.4 Glucose 102 Calcium 8.9 Radiography Diagnostic Testing: Clinical Impression(s) from Imaging Studies Chest X-Ray 10/21/23 15:24 IMPRESSION: Normal x-ray examination of the chest. Electronically Signed: Nate Worthy MD at 15:44 EDT , 1 view chest x-ray obtained interpreted by myself as no evidence of infiltrate or pneumothorax or acute disease process. Radiology in agreement. Discharge Plan Triage Chief Complaint: Cough ED Provider: Laurel Blankenship Dx/Rx/DC Orders Clinical Impression: Cough Instructions: ED Cough Chronic Uncertain Cause Adult Prescriptions: New prednisone 20 mg tablet 20 mg PO BID Qty: 10 0RF No Action Omeprazole Mg 1 tab PO DAILY bupropion HCl 150 MG tablet extended release 24 hr 150 mg PO DAILY estradiol 2 mg tablet 2 mg PO DAILY cyclobenzaprine [cyclobenzaprine] 10 MG tablet 10 mg PO QHS PRN PRN (Reason: Muscle Spasm) Qty: 10 0RF naproxen 500 MG tablet 500 mg PO BID PRN Qty: 20 0RF hydrocodone-acetaminophen [hydrocodone-acetaminophen] 5-325 mg tablet 1 tab PO Q6H PRN PRN (Reason: Pain) 3 Days Qty: 10 0RF cephalexin 500 MG capsule 500 mg PO 4X/DAY Qty: 40 0RF Primary Care Provider: Eric Pichardo Referrals: Eric Pichardo, DO [Primary Care Provider] - 1 Week if not improving Print Language: [place] Disposition Disposition: Home, Self Care
--- NOTE | 2023-10-21 15:24 | RAD_ITS ---
STUDY: X-RAY CHEST REASON FOR EXAM: Male, 48 years old. Cough TECHNIQUE: Single AP portable view of the chest. COMPARISON: Comparison is made with prior study October 12, 2020. FINDINGS: The lungs are clear and expanded. There is no demonstrated pleural abnormality. Normal size heart. Normal mediastinum and hamida. Normal visualized pulmonary arteries. Normal visualized aortic arch and descending thoracic aorta. Normal visualized thoracic spine. Normal visualized ribs, clavicles, and shoulders. There is no demonstrated abnormality of the visualized soft tissue structures of the upper abdomen. RAD/Chest 1 View (Portable) IMPRESSION: Normal x-ray examination of the chest. Electronically Signed: Nate Worthy MD at 15:44 EDT ,
[2023-10-21 15:28] LABS: Absolute Lymphocyte Count 2.16 X10^3/uL (0.83-4.51); Absolute Neutrophil Count 5.5 X10^3/uL (2.0-7.7); Basophil# 0.05 X10^3/uL; Basophil% 0.6 % (0-1); Eosinophil# 0.22 X10^3/uL; Eosinophils% 2.4 % (0-5); Hematocrit 45.2 % (40-54); Hemoglobin 14.5 g/dL (13.0-16.5); Lymphocyte # 2.16 X10^3/ul (0.83-4.51); Mean Corp Hgb Conc 32.1 g/dL (32-36); Mean Corpuscular Hgb 26.4 pg (27.0-32.0); Mean Corpuscular Volume 82.2 fL (80-94); Mean Platelet Vol. 10.1 fl (6.2-12.0); Monocyte# 1.06 X10^3/uL; Monocyte% 11.8 % (0-10); NRBC Flagged by Analyzer 0 % (0-5); Neutrophil # 5.45 X10^3/uL (2.7-7.7); Neutrophil % 60.6 % (47-70); Platelet Count 255 K/mm3 (150-450); RBC Distribution Width CV 13.5 % (11.6-14.6)
[2023-10-21 15:41] LABS: Anion Gap 5 (5-15); BUN 16 mg/dL (7-18); BUN/Creat Ratio 16.4 RATIO (10-20); Calcium,Total 8.9 mg/dL (8.5-10.1); Chloride 109 mmol/L (98-107); Creatinine, Serum 0.98 mg/dL (0.70-1.30); EST Glomerular Filtration Rate 88 mL/min (>60); Est Glom Filt Rate - Afr Amer 106 mL/min (>60); Estimated Creatinine Clearance 141.84 ml/min; Glucose 102 mg/dL (74-106); Potassium 3.9 mmol/L (3.5-5.1); Sodium Level 141 mmol/L (136-145)
[2023-10-21 15:43] LABS: D-Dimer Quantitative (DVT/PE) 0.42 FEU/ug/m (0.27-0.49)
[2023-10-21] MEDS: predniSONE 20 MG Tablet 40 MG PO (16:30)
[2023-10-21 16:34] VITALS: BP 168/78; PULSE 68; RESP 18; TEMP 36.6; O2SAT 98
== END 2023-10-21 16:35 | disposition home or self-care (01) ==
PROVIDERS: Emergency Provider Emergency Medicine; PCP Student in an Organized Health Care Education/Training Program; Visit Provider Emergency Medicine
DX: R05.9 Cough, unspecified (principal); Z87.891 Personal history of nicotine dependence; F32.A Depression, unspecified; Z79.899 Other long term (current) drug therapy
CPT/HCPCS: 71045; 80048; 85025; 85379; 87631; 99282

== ENCOUNTER 2024-02-29 10:59 | Observation (INO) | payer SELFPAY ==
[2024-02-29] VITALS (7 sets, daily range): BP systolic 154–186; BP diastolic 91–121; PULSE 76–107; RESP 16–18; TEMP 36.6–37.1; O2SAT 98–99; BMI 42.5; BMI 42.4
--- NOTE | 2024-02-29 11:16 | EDS_ITS ---
<Statement entered by Marin Chen DO - 02/29/24 16:18> Patient was seen and examined with nurse practitioner Serge All components of the history and physical confirmed and agreed. 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 States that about a week ago he was pressure washing trash cans when the film washer hit his left arm. He states that over the weekend it started to get red and swollen and noted that today there was some bubbling so therefore he use a drip box tender to attempt to open this up. He states that when he made the cut that there was some blood and white discharge noted. Patient states that he has having pain which is getting worse which is prompted him here further evaluation management. He states that he is unsure when his last tetanus shot was. Review of systems: Agree with above Physical exam: Agree with above will add to extremities that the patient was abl e to give me the okay sign thumbs up and oppose his thumb to his pinky bilaterally. Radial pulses +2/4 in the bilateral upper extremities. MDM Patient is a 48-year-old male who presents to the emergency department with a chief complaint of left upper extremity pain and redness after a injury with a film washer. Patient will have workup performed here on the differential diagnosis includes but not limited to cellulitis, necrotizing fasciitis, abscess. Once workup is obtained reviewed he will be reevaluated. Patient's CBC reviewed showed a white cell count of 12,000, hemoglobin stable 1 4.7, platelet count normal at 227. Patient sodium normal 137, potassium normal 3.7, creatinine normal at 0.93. Patient lactic acid normal at 1.1. Patient's x-ray was reviewed and independently interpreted myself as well as radiology which showed soft tissue swelling findings suggestive of an old avulsion fracture of the ulnar styloid. No gas noted. Patient was given vancomycin and Zosyn. At this point time do believe the patient will require admission to the hospital for his left forearm cellulitis as he is borderline diabetic and he has significant swelling and redness in this area. This practitioner Serge did discuss case with hospitalist who accept the patient for admission. Patient was notified with all question concerns answered bedside is agreeable to plan Final impression: Left forearm cellulitis chip washer injury Disposition: Patient will be admitted for further evaluation management Supervising attending attestation: Marin ZUÑIGA History of Present Illness Chief Complaint: Wound Narrative Narrative: Patient is a 48-year-old male with history of anxiety, blindness of the right eye, obesity, hypertension who presents to the emergency department for a left wrist swelling, redness. Patient states 1 week ago, he was pressure washing a t rash can while holding it in caught his left wrist. Patient states it then began to be red and swollen, today, he noticed that there was a bubble, so he used a drip box tender to cut it. Pay states there was some blood and some white drainage. Pay states the pain and swelling is getting worse, he is here for evaluation. Tetanus vaccination unknown. [facility] Medical History (Updated 02/29/24 @ 12:42 by SHREYA Hernández) Hypertension Hypercholesterolemia Depression Arthritis History of eye injury Home Medications ?Medication ?Instructions ?Recorded ?Last Taken ?Type bupropion HCl 150 mg 24 hr tablet, 150 mg PO DAILY DEPRESSION 06/29/19 Unknown History extended release estradiol 2 mg tablet 2 mg PO DAILY 10/12/20 Unknown History omeprazole 20 mg capsule,delayed 20 mg PO DAILY GERD 02/29/24 Unknown History release Allergy/AdvReac Type Severity Reaction Status Date / Time No Known Allergies Allergy Verified 02/29/24 11:02 Surgical History History of facial surgery History of carpal tunnel release Social History Smoking Status: Former smoker ROS ROS ED ROS Narrative Constitutional: Negative for fever, chills, weight loss, weakness Eyes: Negative for vision loss, vision change, double vision ENT: Negative for any sore throat, ear pain, congestion Cardiovascular: Negative for any chest pain, tightness, palpitations Respiratory: Negative for any cough, sputum production, hemoptysis, dyspnea, dyspnea on exertion, orthopnea Gastrointestinal: Negative for any abdominal pain, nausea, vomiting, diarrhea, constipation, blood in stool, blood in vomit : Negative for any urinary frequency, dysuria, retention, blood in urine Muscle skeletal: Negative for any neck pain, back pain Neurological: Negative for any headache, syncope, dizziness Skin: Negative for any rashes, itching, abrasions, lacerations. Positive for redness, swelling to the left wrist Psychiatric: Negative for any depression, anxiety, stress, suicidal ideation, homicidal ideation Hematologic: Negative for any excessive bruising, easy bleeding EXAM Physical Exam Narrative Exam Narrative: Vital signs reviewed. HEET: Head normocephalic atraumatic, TMs clear bilaterally. Posterior pharynx is clear, moist mucous membranes. Nares clear bilaterally. Neck: Supple with no lymphadenopathy or tenderness. No signs of meningismus. Cardiac: Regular rate and rhythm no murmurs gallops or rubs, equal peripheral pulses bilaterally. Respiratory: Lungs clear to auscultation bilaterally. No chest tenderness. Abdomen: Soft, nontender, nondistended. No abdominal bruit or pulsatile masses. No hepatosplenomegaly Extremities: Patient has obvious erythema, edema to the anterior wrist, mostly on the radial aspect. There is an open wound with drainage. Patient does have redness extending to the forearm just below the antecubital part of the arm. Patient is able to open and close his hand however it is painful and difficult secondary to the swelling. No neurological focal deficits. Neuro: Cranial nerves II through XII intact, no focal neurological deficits. Skin: Clean dry and intact with no rash, purpura, petechiae, vesicles or pustules. Backs/flank: No CVA tenderness, no midline spinal tenderness, no deformity. Psych: Normal mood and affect. No SI, HI or acute psychosis. Const Vital Signs: 02/29/24 11:00 02/29/24 12:02 Temperature 98.3 F 98.7 F Temperature Source Temporal Oral Pulse Rate 107 H 100 Respiratory Rate 18 18 Blood Pressure 177/117 H 170/98 H Blood Pressure Mean 137 122 Pulse Ox 98 99 Oxygen Delivery Method Room Air Room Air Positive obese Nutritional Appearance: obese MDM MDM Lab Data Labs: Laboratory Results - last 24 hr 02/29/24 11:15 WBC 12.7 H RBC 5.57 Hgb 14.7 Hct 45.7 MCV 82.0 MCH 26.4 L MCHC 32.2 RDW Std Deviation 39.8 RDW Coeff of Armin 13.4 Plt Count 227 MPV 10.3 Immature Gran % (Auto) 0.400 Neut % (Auto) 70.6 H Lymph % (Auto) 17.0 L Archer % (Auto) 10.8 H Eos % (Auto) 0.7 Baso % (Auto) 0.5 Absolute Neuts (auto) 9.0 H Absolute Lymphs (auto) 2.17 Nucleated RBC % 0 Sodium 137 Potassium 3.7 Chloride 108 H Carbon Dioxide 25.0 Anion Gap 5 BUN 14 Creatinine 0.93 Estim Creat Clear Calc 145.21 Est GFR (MDRD) Af Amer 112 Est GFR (MDRD) Non-Af 93 BUN/Creatinine Ratio 15.1 Glucose 109 H Lactic Acid 1.1 Calcium 9.3 Radiography Diagnostic Testing: Clinical Impression(s) from Imaging Studies Forearm X-Ray 02/29/24 11:20 IMPRESSION: Soft tissue swelling. Electronically Signed: Nate Worthy MD at 12:15 EDT , Wrist X-Ray 02/29/24 11:20 IMPRESSION: Soft tissue swelling. Findings suggestive of an old avulsion fracture of the ulnar styloid. Electronically Signed: Nate Worthy MD at 12:15 EDT , Treatment and Re-Evaluation :: Differential diagnosis includes however is not limited to: Sepsis, cellulitis, free air, abscess formation Patient appears generally well, vital signs are stable, patient is nontoxic- appearing. 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 Physical examination is concerning for significant cellulitis, x-rays of the wrist hand and forearm will be completed. Patient will be started on IV vancomycin, IV Zosyn. Blood cultures x 2 will be obtained. All radiologic examinations were read, reviewed by the emergency department attending. From these reads, a plan of care will be put in place. Patient CBC shows a leukocytosis with white blood count 12.7, chemistries were unremarkable, lactic acid was negative. Patient's x-rays of the wrist and forearm shows soft tissue swelling, suggesting of an old avulsion fracture of the ulnar styloid, patient's forearm just showed soft tissue swelling, no acute free air. Secondary to the cellulitis, going up his left arm, the patient's comorbidities, patient was started IV vancomycin, IV Zosyn. Blood cultures were completed. Patient will need to be admitted to the hospital. I spoke with the hospitalist, I did try to get a wound culture how there is nothing open at this time. I did send the wound culture from the left wrist. Patient will be admitted to [facility]. Patient is agreeable with this plan, patient stable for admission. Discharge Plan Triage Chief Complaint: Wound ED Midlevel Provider: Serge Guerrero ED Provider: Marin Chen Dx/Rx/DC Orders Clinical Impression: Cellulitis Prescriptions: No Action bupropion HCl 150 MG tablet extended release 24 hr 150 mg PO DAILY estradiol 2 mg tablet 2 mg PO DAILY omeprazole 20 mg capsule,delayed release(DR/EC) 20 mg PO DAILY Primary Care Provider: Eric Pichardo Referrals: Eric Pichardo DO [Primary Care Provider] - Print Language: Portuguese Disposition Disposition: Acute Care Hospital [facility]
--- NOTE | 2024-02-29 11:20 | RAD_ITS ---
STUDY: X-RAY - LEFT WRIST REASON FOR EXAM: Male, 48 years old. Swelling TECHNIQUE: 3 view(s) of the wrist were obtained. COMPARISON: None. FINDINGS: Normal visualized distal radius and ulna. Findings suggestive of an old avulsion fracture of the ulnar styloid. Normal radiocarpal articulation. Normal distal radioulnar articulation. Normal carpal bones. Normal carpal articulations. Normal carpometacarpal articulation of the thumb. Normal second through fifth carpometacarpal articulations. Normal visualized metacarpal bones. Soft tissue swelling. RAD/Wrist min 3 Views IMPRESSION: Soft tissue swelling. Findings suggestive of an old avulsion fracture of the ulnar styloid. Electronically Signed: Nate Worthy MD at 12:15 EDT ,
--- NOTE | 2024-02-29 11:20 | RAD_ITS ---
STUDY: X-RAY - LEFT RADIUS AND ULNA REASON FOR EXAM: Male, 48 years old. Cellulitis TECHNIQUE: 2 view(s) of the forearm. COMPARISON: None. FINDINGS: Soft tissue swelling Normal visualized radius. Findings suggestive of an old avulsion fracture of the ulnar styloid. RAD/Forearm 2 Views IMPRESSION: Soft tissue swelling. Electronically Signed: Nate Worthy MD at 12:15 EDT ,
[2024-02-29] MEDS: oxyCODONE 5 MG Tablet PO (11:26)
[2024-02-29 11:35] LABS: Absolute Lymphocyte Count 2.17 X10^3/uL (0.83-4.51); Basophil# 0.06 X10^3/uL; Basophil% 0.5 % (0-1); Eosinophil# 0.09 X10^3/uL; Eosinophils% 0.7 % (0-5); Hematocrit 45.7 % (40-54); Hemoglobin 14.7 g/dL (13.0-16.5); Lymphocyte # 2.17 X10^3/ul (0.83-4.51); Mean Corp Hgb Conc 32.2 g/dL (32-36); Mean Corpuscular Hgb 26.4 pg (27.0-32.0); Mean Platelet Vol. 10.3 fl (6.2-12.0); Monocyte# 1.37 X10^3/uL; Monocyte% 10.8 % (0-10); NRBC Flagged by Analyzer 0 % (0-5); Neutrophil % 70.6 % (47-70); Platelet Count 227 K/mm3 (150-450); RBC Distribution Width CV 13.4 % (11.6-14.6); RBC Distribution Width SD 39.8 fl (35.1-43.9); Red Blood Count 5.57 M/mm3 (4.6-6.2); White Blood Count 12.7 K/mm3 (4.4-11.0)
[2024-02-29] MEDS: Piperacil/Tazobactam 3.375 GM in 0.9% Normal Saline (50mL MB+) 50 ML IV ×2 (11:35→22:48)
[2024-02-29 11:47] LABS: Anion Gap 5 (5-15); BUN 14 mg/dL (7-18); BUN/Creat Ratio 15.1 RATIO (10-20); Calcium,Total 9.3 mg/dL (8.5-10.1); Chloride 108 mmol/L (98-107); Creatinine, Serum 0.93 mg/dL (0.70-1.30); EST Glomerular Filtration Rate 93 mL/min (>60); Est Glom Filt Rate - Afr Amer 112 mL/min (>60); Estimated Creatinine Clearance 145.21 ml/min; Glucose 109 mg/dL (74-106); Potassium 3.7 mmol/L (3.5-5.1); Sodium Level 137 mmol/L (136-145)
[2024-02-29 12:05] LABS: Lactic Acid 1.1 mmol/L (0.4-1.9)
[2024-02-29] MEDS: Vancomycin HCl 2,000 MG in 0.9% Normal Saline (500mL Bag) 500 ML 250 MG IV (12:34)
--- NOTE | 2024-02-29 14:30 | PCM.RX.CS ---
Consult Antibiotic Management Pharmacy has been consulted to manage selected antibiotic: Vancomycin Type of Intervention Type of Consult: New start Suspected Infection Suspected Infection: Skin/Soft tissue Labs Labs: Sodium 137 mmol/L (136-145) 02/29/24 11:15 Potassium 3.7 mmol/L (3.5-5.1) 02/29/24 11:15 Chloride 108 mmol/L (98-107) H 02/29/24 11:15 Carbon Dioxide 25.0 mmol/L (21.0-32.0) 02/29/24 11:15 Anion Gap 5 (5-15) 02/29/24 11:15 BUN 14 mg/dL (7-18) 02/29/24 11:15 Creatinine 0.93 mg/dL (0.70-1.30) 02/29/24 11:15 Est GFR (MDRD) Af Amer 112 mL/min (>60) 02/29/24 11:15 Est GFR (MDRD) Non-Af 93 mL/min (>60) 02/29/24 11:15 BUN/Creatinine Ratio 15.1 RATIO (10-20) 02/29/24 11:15 Glucose 109 mg/dL (74-106) H 02/29/24 11:15 Pharmacy Plan for Drug Dosing Pharmacy Plan for Drug Dosing: NEW START IV VANCOMYCIN Consulting Physician: Peterson Indication: cellulitis Goal Trough: 15-20 mg/dL SrCr: 0.93 mg/dL CrCl: 145 mL/min Comments: loading dose of 2000mg given 02/28 @ 1234 Vancomycin Dose: Will start 1500mg Q8 @ 2030 and get a level prior to 4th total dose per policy. Pending Level: 03/01/24 @ 1200 Pharmacy Service will continue to monitor and adjust dosing as required.
[2024-02-29] MEDS: 0.9% Saline Lock 10 ML Syringe IV (15:26)
--- NOTE | 2024-02-29 15:54 | CASEMGMT ---
Social Work- SW met with pt to complete SDOH assessment. Pt reports that he is the only working adult in his home. Pt reports pt dtr, dtr boyfriend, and dtr 3 year old child live with him. Pt dtr is 19 yr old and did not graduate last year, is zak-ordered to have a job, but does not and is again. Pt dtr boyfriend has been living with them since December and does not work. Pt reports no one helps clean and pt home has dishes piled up, the yard needs mowed, and is dirty. Pt reports that he work long hours and does not sleep much. Pt works at [employer]. Pt reports that he has lived in his home for a year and it is rent to own. Pt reports that he makes $2000/month after taxes. Pt states that he is trying to save money for a car and to fix up his home, but has been unable to afford the basics. Pt utilizes [employer] and [facility] currently. Pt reports that he asks dtr and boyfriend to assist in the home, but they are unwilling. Pt states there is nothing I can do when SW discussed boundaries and center of control in relationships. Pt was provided with printables of resources including [employer], [employer], transportation, food resources, and [employer] card. Pt reports no other needs at this time. JOSE Lund
[2024-02-29] MEDS: amLODIPine 10 MG Tablet PO (17:04)
[2024-02-29] MEDS: Pantoprazole Sodium 20 MG Tablet PO (17:05)
[2024-02-29] MEDS: buPROPion (XL) 150 MG TABLET.XL PO (17:05)
--- NOTE | 2024-02-29 18:19 | PCM.HP.STD ---
HPI - General General Date of Admission: 02/29/24 HPI Narrative BEBETO ALICEA, is a 48 M who presents to the hospital for an abscess on his left breast. He states that a couple days ago he was pressure washing and cause some irritation on the inside of his left wrist but it seemed to be getting better until 2 days ago when he was at work and he was lifting all day and he noticed that he developed a little bit of an abscess that had gotten worse as the day went on. 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 He noticed purulent white material as well as cyst serosanguineous fluid that came out. He presented to the ER and no more fluid could be expressed we did attempt a wound culture though. White count is little bit elevated at 12.7 but no signs of sepsis. He was started on vancomycin and Zosyn in the ER. [facility] Medical History (Updated 02/29/24 @ 12:42 by SHREYA Hernández) Hypertension Hypercholesterolemia Depression Arthritis History of eye injury Home Medications ?Medication ?Instructions ?Recorded ?Last Taken ?Type bupropion HCl 150 mg 24 hr tablet, 150 mg PO DAILY DEPRESSION 06/29/19 Unknown History extended release estradiol 2 mg tablet 2 mg PO DAILY 10/12/20 Unknown History omeprazole 20 mg capsule,delayed 20 mg PO DAILY GERD 02/29/24 Unknown History release Allergy/AdvReac Type Severity Reaction Status Date / Time No Known Allergies Allergy Verified 02/29/24 11:02 Family History (Updated 02/29/24 @ 18:[address] Davonte Winkler MD) Other Heart disease Kidney disease Surgical History History of facial surgery History of carpal tunnel release Social History Smoking Status: Former smoker ROS Constitutional Constitutional: Denies chills, fatigue, fever(s) or malaise Eyes Eyes: Denies blurry vision ENT HEENT: Denies headache(s) or nasal discharge Cardiovascular Cardiovascular: Denies chest pain, dyspnea on exertion or syncope Respiratory/Chest Respiratory/Chest: Denies cough, shortness of breath at rest or shortness of breath with exertion Gastrointestinal Gastrointestinal: Denies constipation, diarrhea, nausea or vomiting Genitourinary Genitourinary: Denies dysuria Integumentary Integumentary: Reports wounds Neurologic Neurologic: Denies focal weakness, numbness or tremor(s) Psychiatric Psychiatric: Denies anxiety or depression Vital Signs Vital Signs Vital Signs: 02/29/24 11:00 02/29/24 12:02 02/29/24 13:00 Temperature 98.3 F 98.7 F 97.8 F Temperature Source Temporal Oral Oral Pulse Rate 107 H 100 76 Respiratory Rate 18 18 18 Blood Pressure 177/117 H 170/98 H 186/121 H Blood Pressure Mean 137 122 142 Blood Pressure Source Blood Pressure Position Blood Pressure Location Pulse Ox 98 99 98 Oxygen Delivery Method Room Air Room Air Room Air 02/29/24 13:20 02/29/24 14:20 02/29/24 14:40 Temperature 97.8 F 98.5 F Temperature Source Oral Pulse Rate 76 76 86 Respiratory Rate 18 17 Blood Pressure 186/121 H 154/105 H Blood Pressure Mean 142 121 Blood Pressure Source Monitor Blood Pressure Position Semi-Fowlers Blood Pressure Location Left Arm Pulse Ox 98 98 Oxygen Delivery Method Room Air Room Air Weight Weight: 313 lb Body Mass Index (BMI) 42.4 Physical Exam Narrative General: Alert, Oriented x3, Cooperative, No apparent distress HEENT: Atraumatic, right eye trauma, normocephalic Oral: Moist Mucosa Neck: Supple, No JVD Lungs: Diminished, Normal air movement, No rhonchi, No wheeze, No rales Cardiovascular: Regular rate, Regular Rhythm, Normal S1, Normal S2, No murmurs Abdomen: Soft, Non Tender, Non-Distended, No Hepato-splenomegaly Extremities: No edema, Capillary Refill Less than 3 Seconds Skin: Left wrist wound, dressing in place states redness is improved Musculoskeletal: No Tenderness to Palpation of Joints or Extremities Neurological: No focal neurological deficits, Motor Exam 5/5 strength throughout, Sensory exam intact to light touch and pain Psych/Mental Status: Normal Affect, Appropriate Results Lab / Micro Data 02/29/24 11:15 02/29/24 11:15 Labs: Laboratory Results - last 24 hr 02/29/24 11:15: WBC 12.7 H, RBC 5.57, Hgb 14.7, Hct 45.7, MCV 82.0, MCH 26.4 L, MCHC 32.2, RDW Std Deviation 39.8, RDW Coeff of Armin 13.4, Plt Count 227, MPV 10.3, Immature Gran % (Auto) 0.400, Neut % (Auto) 70.6 H, Lymph % (Auto) 17.0 L, Barnes % (Auto) 10.8 H, Eos % (Auto) 0.7, Baso % (Auto) 0.5, Absolute Neuts (auto) 9.0 H, Absolute Lymphs (auto) 2.17, Nucleated RBC % 0, Sodium 137, Potassium 3.7, Chloride 108 H, Carbon Dioxide 25.0, Anion Gap 5, BUN 14, Creatinine 0.93, Estim Creat Clear Calc 145.21, Est GFR (MDRD) Af Amer 112, Est GFR (MDRD) Non-Af 93, BUN/Creatinine Ratio 15.1, Glucose 109 H, Lactic Acid 1.1, Calcium 9.3 Micro: Microbiology 02/29/24 12:40 Wound - Wrist Gram Stain - Final Imaging Radiology Impression Forearm X-Ray 02/29/24 11:20 IMPRESSION: Soft tissue swelling. Electronically Signed: Nate Worthy MD at 12:15 EDT , Wrist X-Ray 02/29/24 11:20 IMPRESSION: Soft tissue swelling. Findings suggestive of an old avulsion fracture of the ulnar styloid. Electronically Signed: Nate Worthy MD at 12:15 EDT , Assessment & Plan Assessment/Plan (1) Cellulitis: PLAN: Plan 1. Left wrist cellulitis with abscess ? Blood cultures pending, not septic ? Continue with antibiotics ? Wound culture does not have any organisms on it ? Will consult wound care nurse 2. Anxiety/depression ? Stable ? Continue with Wellbutrin 3. GERD ? Stable ? Continue with PPI DVT: Ambulation 75 minutes was spent on direct patient care, including documentation as well as chart review and collaboration with colleagues Charges/Coding Visit Charges Inpatient E&M: 83155 Init Hosp L3
[2024-02-29] MEDS: Vancomycin HCl 1,500 MG in 0.9% Normal Saline (500mL Bag) 500 ML 250 MG IV (19:53)
[2024-03-01] MEDS: Vancomycin HCl 1,500 MG in 0.9% Normal Saline (500mL Bag) 500 ML 250 MG IV (04:59)
[2024-03-01] MEDS: Acetaminophen 500 MG Tablet 1000 MG PO (06:48)
[2024-03-01] MEDS: Piperacil/Tazobactam 3.375 GM in 0.9% Normal Saline (50mL MB+) 50 ML IV (06:48)
[2024-03-01 06:50] VITALS: BP 155/89; PULSE 94; RESP 18; TEMP 36.5; O2SAT 97
[2024-03-01 06:59] LABS: Absolute Lymphocyte Count 2.03 X10^3/uL (0.83-4.51); Absolute Neutrophil Count 8.6 X10^3/uL (2.0-7.7); Basophil# 0.03 X10^3/uL; Basophil% 0.2 % (0-1); Eosinophil# 0.13 X10^3/uL; Eosinophils% 1.1 % (0-5); Hematocrit 45.6 % (40-54); Hemoglobin 14.6 g/dL (13.0-16.5); Lymphocyte # 2.03 X10^3/ul (0.83-4.51); Lymphocyte % 16.7 % (19-41); Mean Corpuscular Hgb 26.5 pg (27.0-32.0); Mean Corpuscular Volume 82.8 fL (80-94); Mean Platelet Vol. 10.2 fl (6.2-12.0); Monocyte# 1.37 X10^3/uL; Monocyte% 11.3 % (0-10); NRBC Flagged by Analyzer 0 % (0-5); Neutrophil # 8.55 X10^3/uL (2.7-7.7); Neutrophil % 70.3 % (47-70); Platelet Count 222 K/mm3 (150-450); RBC Distribution Width CV 13.4 % (11.6-14.6); RBC Distribution Width SD 40.7 fl (35.1-43.9); Red Blood Count 5.51 M/mm3 (4.6-6.2); White Blood Count 12.2 K/mm3 (4.4-11.0)
[2024-03-01 08:12] LABS: Anion Gap 8 (5-15); BUN 10 mg/dL (7-18); BUN/Creat Ratio 10.8 RATIO (10-20); Chloride 108 mmol/L (98-107); Creatinine, Serum 0.92 mg/dL (0.70-1.30); EST Glomerular Filtration Rate 93 mL/min (>60); Est Glom Filt Rate - Afr Amer 113 mL/min (>60); Estimated Creatinine Clearance 146.66 ml/min; Glucose 124 mg/dL (74-106); Potassium 3.6 mmol/L (3.5-5.1); Sodium Level 139 mmol/L (136-145)
[2024-03-01 09:10] VITALS: BP 118/89; PULSE 91; RESP 17; TEMP 36.6; O2SAT 98
--- NOTE | 2024-03-01 09:28 | WOUNDNOTE ---
wound photo: left wrist
[2024-03-01] MEDS: buPROPion (XL) 150 MG TABLET.XL PO (09:33)
[2024-03-01] MEDS: Pantoprazole Sodium 20 MG Tablet PO (09:33)
[2024-03-01] MEDS: amLODIPine 10 MG Tablet PO (09:33)
--- NOTE | 2024-03-01 09:33 | DCINST_ITS ---
Discharge Instructions Diet Discharge Diet: Low fat / Low cholesterol Activity Discharge Activity: Return to Normal Activity Dressing / Incision Call your doctor if you observe: Fever of 101 or Higher, Shortness of breath, Dizziness, Fainting spells, Swelling in the ankles, Chest pain and Increased palpitations (irregular heartbeat) Follow Up Care Test Results: Test results from this visit will be discussed in further detail at your follow- up appointment, if applicable. Discharge Plan Admission Admit Date/Time: 02/29/24 12:46 Attending Provider: Davonte Winkler Primary Care Provider: Eric Pichardo Discharge Orders/Prescriptions Prescriptions: New amlodipine 10 mg Tablet 10 mg PO DAILY 30 Days Qty: 30 0RF doxycycline monohydrate 100 mg capsule 100 mg PO BID Qty: 20 0RF Continued bupropion HCl 150 MG tablet extended release 24 hr 150 mg PO DAILY estradiol 2 mg tablet 2 mg PO DAILY omeprazole 20 mg capsule,delayed release(DR/EC) 20 mg PO DAILY Referrals / Follow Up: Eric Pichardo DO [Primary Care Provider] - Within 1 Week Disposition Disposition (needs filled in before D/C Order can be placed): Home, Self Care
--- NOTE | 2024-03-01 10:39 | CASEMGMT ---
RN CM into pt room, pt denies any homegoing needs. Pt states able to do own dressing changes. Pt indep at home. Ready for dc today.
--- NOTE | 2024-03-01 10:41 | PHA.DC_ITS ---
Pharmacy [facility] Pharmacy Service has performed discharge medication reconciliation and counseling for this patient. 1. AMLODIPINE 10MG PO DAILY 2. DOXYCYCLINE 100MG PO BID X 10 DAYS The patient's discharge medication list was reviewed for discrepancies and discrepancies were resolved. The patient was counseled on the following discharge medications and changes in medications for homegoing were reviewed. The Reason for Use, instructions for use, and potential side effects were reviewed for all new medications. The patient's questions regarding all of their medications were answered. The patient was able to verbally demonstrate an understanding of their discharge medications. Medications at Discharge Home Medications bupropion HCl 150 mg 24 hr tablet, extended release 150 mg PO DAILY DEPRESSION 06/29/19 estradiol 2 mg tablet 2 mg PO DAILY 10/12/20 omeprazole 20 mg capsule,delayed release 20 mg PO DAILY GERD 02/29/24 amlodipine 10 mg tablet 10 mg PO DAILY 30 days #30 tabs 03/01/24 doxycycline monohydrate 100 mg capsule 100 mg PO BID #20 caps 03/01/24
--- NOTE | 2024-03-01 12:22 | PCM.DC.SUM ---
Providers Date of Admission: 02/29/24 Primary Care Physician: Dr. 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 Routine Comment: Reason For Visit: HAND CELLUTLITIS Diagnosis Discharge Diagnosis (1) Cellulitis: Status: Acute Code(s): L03.90 - Cellulitis, unspecified Plan Gross Medications at Discharge Home Medications bupropion HCl 150 mg 24 hr tablet, extended release 150 mg PO DAILY DEPRESSION 06/29/19 estradiol 2 mg tablet 2 mg PO DAILY 10/12/20 omeprazole 20 mg capsule,delayed release 20 mg PO DAILY GERD 02/29/24 amlodipine 10 mg tablet 10 mg PO DAILY 30 days #30 tabs 03/01/24 doxycycline monohydrate 100 mg capsule 100 mg PO BID #20 caps 03/01/24 Hospital Course Operations None Procedures None Summary of Care Provided Minutes Spent on Discharge: 35 Hospital Course: Per HPI: BEBETO ALICEA, is a 48 M who presents to the hospital for an abscess on his left breast. He states that a couple days ago he was pressure washing and cause some irritation on the inside of his left wrist but it seemed to be getting better until 2 days ago when he was at work and he was lifting all day and he noticed that he developed a little bit of an abscess that had gotten worse as the day went on. This morning he noticed that it was very tender and red so he cleaned it off with alcohol and cleaned off a picker box operator and cut into the abscess a little bit. He noticed purulent white material as well as cyst serosanguineous fluid that came out. He presented to the ER and no more fluid could be expressed we did attempt a wound culture though. White count is little bit elevated at 12.7 but no signs of sepsis. He was started on vancomycin and Zosyn in the ER. Hospital Course: 1. Left wrist cellulitis with abscess?48-year-old male presents from home after using a picker box operator to sukhdeep an abscess on his left wrist. He said that he feels much better today white count is slightly improved though still little bit elevated. He did ask to go home if possible, I discussed with him the risks and benefits of discharge and he expressed understanding. He could benefit from another 24 hours of IV antibiotics however wound culture also does not demonstrate any organisms so I do not anticipate her having any significant bacterial information at this time. I discussed with him the need to transition to p.o. doxycycline 100 mg p.o. twice daily with outpatient follow-up, he will take this for about 10 days. Of note he did have a tetanus shot in April 2023 so does not appear that he needs another shot. I recommend that he follow-up with his PCP in 3 to 5 days for monitoring, there does not appear to be any further abscess to be cleaned. 2. Anxiety, depression, GERD are all chronic medical conditions which complicate his care. His home medications were continued where appropriate Physical Exam Narrative General: Alert, Oriented x3, Cooperative, No apparent distress HEENT: Atraumatic, right eye trauma, normocephalic Oral: Moist Mucosa Neck: Supple, No JVD Lungs: Diminished, Normal air movement, No rhonchi, No wheeze, No rales Cardiovascular: Regular rate, Regular Rhythm, Normal S1, Normal S2, No murmurs Abdomen: Soft, Non Tender, Non-Distended, No Hepato-splenomegaly Extremities: No edema, Capillary Refill Less than 3 Seconds Skin: Left wrist wound, dressing in place states redness is improved, swelling is also improved today with improved mobility Musculoskeletal: No Tenderness to Palpation of Joints or Extremities Neurological: No focal neurological deficits, Motor Exam 5/5 strength throughout, Sensory exam intact to light touch and pain Psych/Mental Status: Normal Affect, Appropriate Weight / BMI Weight Weight: 313 lb Body Mass Index (BMI) 42.4 ABG / Lab / Microbiology Data 03/01/24 06:20 03/01/24 06:20 Laboratory: Laboratory Results - last 24 hr 03/01/24 06:20: WBC 12.2 H, RBC 5.51, Hgb 14.6, Hct 45.6, MCV 82.8, MCH 26.5 L, MCHC 32.0, RDW Std Deviation 40.7, RDW Coeff of Armin 13.4, Plt Count 222, MPV 10.2, Immature Gran % (Auto) 0.400, Neut % (Auto) 70.3 H, Lymph % (Auto) 16.7 L, [place] % (Auto) 11.3 H, Eos % (Auto) 1.1, Baso % (Auto) 0.2, Absolute Neuts (auto) 8.6 H, Absolute Lymphs (auto) 2.03, Nucleated RBC % 0, Sodium 139, Potassium 3.6, Chloride 108 H, Carbon Dioxide 24.0, Anion Gap 8, BUN 10, Creatinine 0.92, Estim Creat Clear Calc 146.66, Est GFR (MDRD) Af Amer 113, Est GFR (MDRD) Non-Af 93, BUN/Creatinine Ratio 10.8, Glucose 124 H, Calcium 9.0 Microbiology: Microbiology 02/29/24 12:40 Wound - Wrist Gram Stain - Final 02/29/24 12:40 Wound - Wrist Wound Culture - Preliminary Staphylococcus aureus D/C Instructions Discharge Diet: Low fat / Low cholesterol Call your doctor if you observe: Fever of 101 or Higher, Shortness of breath, Dizziness, Fainting spells, Swelling in the ankles, Chest pain and Increased palpitations (irregular heartbeat) Meaningful Use Info Meaningful Use Meaningful Use Diagnoses (Choose all that apply): None applicable Ischemic Stroke Statin Dosing Therapy Reference: STATIN DOSE THERAPY REFERENCE: * Patients > 75 years receive moderate or high dose statin therapy. * Patients 75 years or YOUNGER should receive HIGH intensity statin dose unless contraindicated. You will be required to document reason for non-treatment if statin daily dose does not meet guidelines. HIGH DOSE STATIN THERAPY DAILY Atorvastatin > than or = to 40 mg Rosuvastatin > than or = to 20 mg Amlodipine + Atorvastatin > than or = to 2.5/40 mg Ezetimibe + Simvastatin 10/80 mg Simvastatin 80mg Discharge Plan Admission Admit Date/Time: 02/29/24 12:46 Attending Provider: Davonte Winkler Primary Care Provider: Eric Pichardo Discharge Orders/Prescriptions Prescriptions: New amlodipine 10 mg Tablet 10 mg PO DAILY 30 Days Qty: 30 0RF doxycycline monohydrate 100 mg capsule 100 mg PO BID Qty: 20 0RF Continued bupropion HCl 150 MG tablet extended release 24 hr 150 mg PO DAILY estradiol 2 mg tablet 2 mg PO DAILY omeprazole 20 mg capsule,delayed release(DR/EC) 20 mg PO DAILY Referrals / Follow Up: Eric Pichardo DO [Primary Care Provider] - Within 1 Week Disposition Disposition (needs filled in before D/C Order can be placed): Home, Self Care Charges/Coding Visit Charges Inpatient E&M: 23508 Disch Hosp >30min
[2024-03-01 13:27] LABS: Vancomycin, Trough Level 14.6 ug/mL (5.0-15.0)
--- NOTE | 2024-03-01 13:39 | PCM.RX.CS ---
Consult Antibiotic Management Pharmacy has been consulted to manage selected antibiotic: Vancomycin Type of Intervention Type of Consult: Follow-up Suspected Infection Suspected Infection: Skin/Soft tissue Prior Doses of Antibiotics Prior Doses of Antibiotics Received/Current Regimen: Vancomycin 1500 mg Q8H last dose 03/01 @ 6252 Labs Labs: Sodium 139 mmol/L (136-145) 03/01/24 06:20 Potassium 3.6 mmol/L (3.5-5.1) 03/01/24 06:20 Chloride 108 mmol/L (98-107) H 03/01/24 06:20 Carbon Dioxide 24.0 mmol/L (21.0-32.0) 03/01/24 06:20 Anion Gap 8 (5-15) 03/01/24 06:20 BUN 10 mg/dL (7-18) 03/01/24 06:20 Creatinine 0.92 mg/dL (0.70-1.30) 03/01/24 06:20 Est GFR (MDRD) Af Amer 113 mL/min (>60) 03/01/24 06:20 Est GFR (MDRD) Non-Af 93 mL/min (>60) 03/01/24 06:20 BUN/Creatinine Ratio 10.8 RATIO (10-20) 03/01/24 06:20 Glucose 124 mg/dL (74-106) H 03/01/24 06:20 Vancomycin Trough 14.6 ug/mL (5.0-15.0) 03/01/24 12:02 Microbiology Microbiology: Microbiology 02/29/24 12:40 Wound - Wrist Gram Stain - Final 02/29/24 12:40 Wound - Wrist Wound Culture - Preliminary Staphylococcus aureus Dosing Weight Weight used for dosin kg Estimated Creatinine Clearance Estimated Creatinine Clearance: ~147 Goal Trough Goal Trough: 15-20 mcg/mL Pharmacy Plan for Drug Dosing Pharmacy Plan for Drug Dosing: Vancomycin trough = 14.6, increase dose to 1750 mg Q8H, trough prior to 4th dose or new regimen. Pharmacy Service will continue to monitor and adjust dosing as required. Follow-Up Labs Follow-Up Labs: Trough: Vancomycin Date/Time Labs Ordered Labs to be done on [date and time ordered]: 03/02/24 @ 6716
[2024-03-01 14:10] VITALS: BP 160/101; PULSE 82; RESP 17; TEMP 36.5; O2SAT 100
[2024-03-01] MEDS: 0.9% Saline Lock 10 ML Syringe IV ×2 (14:12→18:14)
[2024-03-01] MEDS: Vancomycin HCl 1,750 MG in 0.9% Normal Saline (500mL Bag) 500 ML 250 MG IV (14:12)
== END 2024-03-01 19:02 | disposition home or self-care (01) ==
LOC: ED 12:42 → MS3 13:18
PROVIDERS: Nurse Practitioner; Admitting Provider Family Medicine; Emergency Provider Emergency Medicine; PCP Student in an Organized Health Care Education/Training Program; Visit Provider Family Medicine
DX: L02.414 Cutaneous abscess of left upper limb (principal); Z68.41 Body mass index [BMI] 40.0-44.9, adult; Z87.891 Personal history of nicotine dependence; R73.03 Prediabetes; L03.114 Cellulitis of left upper limb; F41.9 Anxiety disorder, unspecified; E78.00 Pure hypercholesterolemia, unspecified; E66.9 Obesity, unspecified; I10 Essential (primary) hypertension; F32.A Depression, unspecified; K21.9 Gastro-esophageal reflux disease without esophagitis; H54.7 Unspecified visual loss; Z79.899 Other long term (current) drug therapy
CPT/HCPCS: 36415; 73090; 73110; 80048; 80202; 83605; 85025; 87040; 87070; 87077; 87186; 87205; 96365; 96366; 96367; 96368; 99221; 99284; J7040; A4216; G0378

== ENCOUNTER 2024-06-29 09:23 | Emergency (ER) | payer SELFPAY ==
[2024-06-29 09:24] VITALS: BP 155/120; PULSE 92; RESP 18; TEMP 37.1; O2SAT 100
--- NOTE | 2024-06-29 09:50 | RAD_ITS ---
EXAM: XR Right Hand Complete, 3 or More Views CLINICAL INDICATION: TECHNIQUE: Frontal, lateral and oblique views of the right hand. COMPARISON: No relevant prior studies available. FINDINGS: BONES/JOINTS: See below. SOFT TISSUES: Soft tissue swelling without acute fracture. No radiopaque foreign body. RAD/Hand Min 3 Views IMPRESSION: 1. Soft tissue swelling without acute fracture. 2. If symptoms persist, repeat radiograph in 7-10 days recommended. Reading Location: [facility]
--- NOTE | 2024-06-29 09:50 | RAD_ITS ---
EXAM: XR Right Wrist Complete, 3 or More Views CLINICAL INDICATION: TECHNIQUE: Frontal, lateral and oblique views of the right wrist. COMPARISON: No relevant prior studies available. FINDINGS: BONES/JOINTS: See below. SOFT TISSUES: Soft tissue swelling without acute fracture. No radiopaque foreign body. RAD/Wrist min 3 Views IMPRESSION: 1. Soft tissue swelling without acute fracture. 2. If symptoms persist, repeat radiograph in 7-10 days recommended. Reading Location: [facility]
--- NOTE | 2024-06-29 10:22 | EX.ED.UPPERE ---
HPI History of Present Illness Chief Complaint: Upper Extremity Injury Informant: patient Narrative Narrative: [id number] male presents right hand and wrist injury yesterday. Got angry punched a box fan. Abrasions of the hand. Tetanus in last 5 years. No anticoagulants. No medications taken. Denies any allergies. [facility] Medical History MRSA (methicillin resistant staph aureus) culture positive Hypertension Hypercholesterolemia Depression Arthritis History of eye injury Home Medications ?Medication ?Instructions ?Recorded ?Last Taken ?Type bupropion HCl 150 mg 24 hr tablet, 150 mg PO DAILY DEPRESSION 06/29/19 Unknown History extended release estradiol 2 mg tablet 2 mg PO DAILY 10/12/20 Unknown History omeprazole 20 mg capsule,delayed 20 mg PO DAILY GERD 02/29/24 Unknown History release amlodipine 10 mg tablet 10 mg PO DAILY 30 days #30 tabs 03/01/24 Unknown Rx doxycycline monohydrate 100 mg 100 mg PO BID #20 caps 03/01/24 Unknown Rx capsule ibuprofen 600 mg tablet 600 mg PO Q6H PRN PRN pain #20 06/29/24 Unknown Rx TABLETS Allergy/AdvReac Type Severity Reaction Status Date / Time No Known Allergies Allergy Verified 02/29/24 11:02 Family History Other Heart disease Kidney disease Surgical History History of facial surgery History of carpal tunnel release Social History Smoking Status: Current every day smoker tobacco type: cigarettes ROS ROS ED Constitutional Constitutional ED: Denies fever(s) Cardiovascular Cardiovascular: Denies chest pain Respiratory/Chest Respiratory/Chest: Denies cough Gastrointestinal Gastrointestinal: Denies abdominal pain, diarrhea, nausea or vomiting Musculoskeletal Musculoskeletal: Reports extremity pain; Denies back pain or neck pain Integumentary Reports wounds; Denies rash Neurologic Neurologic: Denies paresthesias or weakness EXAM Physical Exam Const Vital Signs: 06/29/24 09:24 Temperature 98.7 F Temperature Source Oral Pulse Rate 92 Respiratory Rate 18 Blood Pressure 155/120 H Blood Pressure Mean 131 Pulse Ox 100 Oxygen Delivery Method Room Air Positive well nourished and well developed General Appearance ED: well developed HEENT Reports moist mucous membranes normocephalic and atraumatic Eyes Eyes Narrative: Previous right eye trauma, no pupils noted. Neck full ROM Chest Wall Chest: Negative for tenderness Resp normal respiratory effort and normal air movement Effort and Inspection: symmetric chest movement; Negative for respiratory distress Cardio regular rate, regular rhythm and no murmurs Peripheral Pulses: pulses 2+ throughout GI normal to inspection, nondistended, normoactive bowel sounds and non-tender Palpation: Negative for guarding or rebound tenderness present Extremity Extremity Narrative: Right upper extremity: No elbow tenderness. There is tender palpation distal radius no snuffbox tenderness. Swelling dorsal hand with ecchymosis tender distal third metacarpal. No deformities. Abrasions noted across the second and third metacarpal. No laceration. General Extremety ED: Yes edema and tenderness General Extremity: edema Neuro oriented x3 and no sensory deficits noted Sensorium / Orientation: awake and alert Skin Skin Narrative: See above MDM MDM MDM Narrative Medical decision making narrative: Interventions / MDM: Differential diagnosis: Abrasion, contusion Diagnosis considered but do not suspect: Fracture however x-ray negative, compartment syndrome however soft compartments My EKG interpretation: N/A Imaging independently reviewed and interpreted by myself: Three-view x-ray right hand: No fracture or soft tissue swelling. Three-view x-ray right wrist: No fracture, soft tissue swelling also read by radiology. External documents reviewed: N/A Test considered but not ordered:N/A ED course: Patient reports tetanus in last 5 years. Pain hand and wrist. Treated with Motrin and [place]. X-rays of right wrist and hand ordered. X-rays negative. Jonn wrap provided. Will continue Motrin. Discussed RICE therapy. Outpatient follow-up. Re-evaluation: stable Disposition discussed with patient/family/significant other: Patient Case discussed with consulting clinician: N/A This note was generated with [employer] dictation software. It may contain incorrect words, spelling, and punctuation that were not noted in checking the note before signing. Radiography Diagnostic Testing: Clinical Impression(s) from Imaging Studies Hand X-Ray 06/29/24 09:50 IMPRESSION: 1. Soft tissue swelling without acute fracture. 2. If symptoms persist, repeat radiograph in 7-10 days recommended. Reading Location: [facility] Wrist X-Ray 06/29/24 09:50 IMPRESSION: 1. Soft tissue swelling without acute fracture. 2. If symptoms persist, repeat radiograph in 7-10 days recommended. Reading Location: [facility] Discharge Plan Triage Chief Complaint: Upper Extremity Injury ED Provider: Jace Hodges Dx/Rx/DC Orders Clinical Impression: Contusion of hand, right, Abrasion of hand, right, Right wrist sprain Instructions: ED Abrasion, ED Hand Contusion Prescriptions: New ibuprofen 600 mg tablet 600 mg PO Q6H PRN PRN (Reason: pain) Qty: 20 0RF No Action bupropion HCl 150 MG tablet extended release 24 hr 150 mg PO DAILY estradiol 2 mg tablet 2 mg PO DAILY omeprazole 20 mg capsule,delayed release(DR/EC) 20 mg PO DAILY amlodipine 10 mg Tablet 10 mg PO DAILY 30 Days Qty: 30 0RF doxycycline monohydrate 100 mg capsule 100 mg PO BID Qty: 20 0RF Primary Care Provider: Eric Pichardo Referrals: Eric Pichardo DO [Primary Care Provider] - 1-2 Weeks Activity Restrictions/Additional Instructions: Right wrist and hand x-ray negative for any fractures. Jonn wrap for comfort. Continue ibuprofen as prescribed. Follow-up with your doctor. Print Language: [place] Disposition Disposition: Home, Self Care
[2024-06-29 10:27] VITALS: BP 157/87; PULSE 86; RESP 16; TEMP 37.1; O2SAT 95
[2024-06-29] MEDS: HYDROcodone Bitartrate/Apap 5/325 Tablet PO (10:30)
[2024-06-29 10:31] VITALS: BMI 43.2
== END 2024-06-29 10:34 | disposition home or self-care (01) ==
PROVIDERS: Emergency Provider Emergency Medicine; PCP Student in an Organized Health Care Education/Training Program; Visit Provider Emergency Medicine
DX: S60.221A Contusion of right hand, initial encounter (principal); S63.91XA Sprain of unspecified part of right wrist and hand, initial encounter; E78.00 Pure hypercholesterolemia, unspecified; I10 Essential (primary) hypertension; W22.09XA Striking against other stationary object, initial encounter; Y93.89 Activity, other specified; F32.A Depression, unspecified; Z79.899 Other long term (current) drug therapy; F17.210 Nicotine dependence, cigarettes, uncomplicated
CPT/HCPCS: 73110; 73130; 99282

== ENCOUNTER 2024-09-27 10:43 | Emergency (ER) | payer SELFPAY ==
[2024-09-27 10:44] VITALS: BP 192/109; BP 200/105; PULSE 85; PULSE 89; RESP 16; RESP 22; TEMP 36.8; O2SAT 98; BMI 44.1
--- NOTE | 2024-09-27 10:55 | EKG12_ITS ---
Test Reason : GENERAL Blood Pressure : */* mmHG Vent. Rate : 67 BPM Atrial Rate : 67 BPM P-R Int : 150 ms QRS Dur : 100 ms QT Int : 384 ms P-R-T Axes : 47 -23 21 degrees QTcB Int : 405 ms Normal sinus rhythm Minimal voltage criteria for LVH, may be normal variant ( R in aVL ) Borderline ECG Confirmed by Johnie Morin ([id number]), editorial writer ALLEY FITZPATRICK ([id number]) on 09/30/2024 12:04:03 PM Referred By: UG Confirmed By: Johnie Morin
--- NOTE | 2024-09-27 10:56 | EDS_ITS ---
HPI History of Present Illness Chief Complaint: Cough Detail of Chief Complaint: Upper respiratory tract symptoms Informant: patient Onset/Context/Timing Onset: Yesterday Context: Sudden Onset Timing: Continuous and Waxes and wanes Quality: Rhinorrhea, congestion, nonproductive cough and mild shortness of breath Location: Upper respiratory Current Severity: Gone Maximum Severity: Mild Worsened by: Mild dyspnea with exertion Relieved by: Breast Associated Symptoms Associated Symptoms: No other symptoms Narrative Narrative: Patient is a 49-year-old male. He is not seen a physician in some time. He presents with upper respiratory tract infection symptoms started yesterday. His daughter and granddaughter who live with him are both ill with upper respiratory symptoms. Patient denies headache, visual, ocular auditory symptoms. Patient denies neck pain or neck stiffness. Patient denies chest discomfort of any type. Nuys pleuritic pain. There is no history of VTE. Denies leg pain or swelling. Patient denies headache, paresthesia, anesthesia Medicus. [place] problems with coordination or balance. No trouble with speech or swallowing. Patient was admitted February [address] Davonte Winkler' discharge report was reviewed. Prior similar symptoms: No Recent Illness/Hospitalization: No PFSH PFSH Medical History MRSA (methicillin resistant staph aureus) culture positive Hypertension Hypercholesterolemia Depression Arthritis History of eye injury Home Medications ?Medication ?Instructions ?Recorded ?Last Taken ?Type hydrochlorothiazide 12.5 mg tablet 12.5 mg PO DAILY #3 0 tabs 09/27/24 Unknown Rx lisinopril 10 mg tablet 10 mg PO DAILY #30 tabs 11/16 Unknown Rx Allergy/AdvReac Type Severity Reaction Status Date / Time No Known Allergies Allergy Verified 09/27/24 10:44 Family History Other Heart disease Kidney disease Surgical History History of facial surgery History of carpal tunnel release Social History Smoking Status: Former smoker ROS ROS ED Constitutional Constitutional ED: Reports fever(s) and subjective; Denies chills, sweats or weight loss Eyes Eyes: Denies blurry vision, change in vision or diplopia ENT ENT ED: Reports rhinorrhea and sore throat; Denies ear pain Cardiovascular Cardiovascular: Denies chest pain, orthopnea, palpitations, paroxysmal nocturnal dyspnea or racing heartbeat Respiratory/Chest Respiratory/Chest: Reports cough and dyspnea on exertion; Denies dyspnea, orthopnea, paroxysmal nocturnal dyspnea or sputum Gastrointestinal Gastrointestinal: Denies abdominal pain, diarrhea, nausea or vomiting Musculoskeletal Musculoskeletal: Denies arthralgias or myalgias Integumentary Denies rash Neurologic Neurologic: Reports other Details: Further detailed HPI narrative ; Denies headache(s), paresthesias or weakness Psychiatric Psychiatric: Denies anxiety or depression Endocrine Endocrinology: Denies cold intolerance or heat intolerance Hematologic/Lymphatic Hematologic/Lymphatic: Reports systems reviewed and no addt'l complaints, except as documented EXAM Physical Exam Const Vital Signs: 09/27/24 10:44 09/27/24 10:44 09/27/24 11:48 Temperature 98.3 F Temperature Source Temporal Pulse Rate 89 85 Respiratory Rate 16 22 H Respiratory Effort Normal Respiratory Depth Normal Respiratory Pattern Normal Blood Pressure 192/109 H 200/105 H Blood Pressure Mean 136 136 Pulse Ox 98 98 Oxygen Delivery Method Room Air Room Air Room Air 09/27/24 12:28 Temperature Temperature Source Pulse Rate 65 Respiratory Rate 14 Respiratory Effort Respiratory Depth Respiratory Pattern Blood Pressure 215/119 H Blood Pressure Mean 151 Pulse Ox 98 Oxygen Delivery Method Room Air Positive well nourished and well developed Constitutional Narrative: BMI is 44.2. Patient's blood pressure is markedly elevated. He is not hypoxic or febrile. He has no history of hypertension. He states he has not seen a d pawelor for some time since his insurance was discontinued . General Appearance ED: well developed; Negative for pallor HEENT Reports moist mucous membranes HEENT Narrative: Head is atraumatic no cephalic. Ears normal. Nares patent. There is mild clear drainage. Posterior pharynx is normal. Eyes PERRL and EOMs intact bilaterally General Eye ED: Negative for pale conjunctiva or scleral icterus Neck no lymphadenopathy, supple and no JVD Resp normal respiratory effort and clear to auscultation bilaterally Cardio regular rate, regular rhythm, S1 normal heart sound, S2 normal heart sound and no murmurs GI normal to inspection, nondistended, normoactive bowel sounds, non-tender, non- distended and no masses; Negative for hepatosplenomegaly Extremity normal to inspection Extremity Narrative: There is no pitting edema. General Extremety ED: Negative for tenderness Neuro oriented x3, CN's II-XII intact bilaterally and no sensory deficits noted Sensorium / Orientation: alert Motor Exam: strength 5/5 throughout Psych mental status grossly normal Skin no rashes or lesions noted, no wounds and skin turgor normal General Skin Exam: Negative for jaundice or pallor MDM MDM MDM Narrative Medical decision making narrative: Patient's respiratory symptoms consistent with upper respiratory tract viral infection. There is no indication for chest x-ray or CBC. Since patient has hypertension is not seen a doctor in some time we will obtain BMP and UA to assess for any endorgan dysfunction as well as EKG to assess for LVH. Patient will most likely require initiation of antihypertensive. If there is any evidence of endorgan dysfunction he will require admission. History & Record Review Additional record(s) reviewed:: Prior inpatient record (Hospital visit for cellulitis was reviewed and documented in the HPI narrative), Prior ED visit and Prior labs Lab Data Labs: Laboratory Results - last 24 hr 09/27/24 09/27/24 11:04 11:33 Sodium 138 Potassium 4.2 Chloride 107 Carbon Dioxide 22.7 Anion Gap 8 BUN 19 Creatinine 0.95 Estim Creat Clear Calc 143.63 Est GFR (MDRD) Non-Af 100 BUN/Creatinine Ratio 19.9 Glucose 108 H Calcium 9.0 Urine Color Yellow Urine Clarity Clear Urine pH 6.5 Ur Specific [place] 1.015 Urine Protein 100 H Urine Glucose (UA) Normal Urine Ketones Negative Urine Occult Blood 25 H Urine Nitrite Negative Urine Bilirubin Negative Urine Urobilinogen Normal Ur Leukocyte Esterase Negative Urine RBC 0 SEEN Urine WBC 0 SEEN Ur Squamous Epith Cells 0 SEEN Urine Bacteria 0 SEEN Urine Mucus 0 SEEN Basic metabolic panel is normal. Urine is remarkable for proteinuria and hematuria. This may be due to is on controlled hypertension. Patient was started on blood pressure medicine. He was prescribed lisinopril and hydrochlorothiazide. He received his first dose of lisinopril in the emergency department Treatment and Re-Evaluation :: He did call your doctor, Dr. Pichardo, to have an appointment in 1 to 2 weeks have your blood pressure rechecked and further workup for your high blood pressure Discharge Plan Triage Chief Complaint: Cough ED Provider: Quintero,Bart Dx/Rx/DC Orders Clinical Impression: Asymptomatic hypertensive urgency, Hypercholesterolemia, Proteinuria, Asymptomatic microscopic hematuria, Upper respiratory infection with cough and congestion Instructions: ED Hypertension New Begin Treatment, ED URI, Viral, No Abx (Adult) Prescriptions: New lisinopril 10 mg tablet 10 mg PO DAILY Qty: 30 0RF hydrochlorothiazide 12.5 mg tablet 12.5 mg PO DAILY Qty: 30 0RF Stand Alone Forms: ED Work / School Excuse Primary Care Provider: Eric Pichardo Referrals: Eric Pichardo, [Primary Care Provider] - 1-2 Weeks Activity Restrictions/Additional Instructions: 1. Take medication as prescribed 2. You need to call Dr. Pichardo's office for reevaluation 1 to 2 weeks and outpatient workup for newly diagnosed hypertension 3. You have a viral upper respiratory tract Print Language: Portuguese Disposition Disposition: Home, Self Care
[2024-09-27 11:37] LABS: Bacteria 0 SEEN /hpf (None Seen); Mucous, Urine 0 SEEN /hpf (<or=2+); Red Blood Cells-Urine 0 SEEN /hpf (0-5); Squamous Epithelial Cells - UA 0 SEEN /hpf (0-5); White Blood Cells 0 SEEN /hpf (0-5)
[2024-09-27 11:39] LABS: Color, Urine Yellow (Yellow); Glucose, Dipstick Normal (Normal); Ketone-Dipstick Negative (Negative); Leukocyte Esterase-Dipstick Negative /ul (Negative); Nitrite-Dipstick Negative (Negative); Occult Blood-Urine 25 /ul (Negative); Protein-Dipstick 100 mg/dl (Negative); Specific Gravity, Urine 1.015 (1.002-1.030); Urine Bilirubin Dipstick Negative (Negative); Urine Clarity Clear (Clear); Urine Urobilinogen Normal (Normal); Urine pH 6.5 (5.0 - 8.0)
[2024-09-27 11:47] LABS: Anion Gap 8 (5-15); BUN 19 mg/dL (4-19); BUN/Creat Ratio 19.9 RATIO (10-20); Carbon Dioxide 22.7 mmol/L (21.0-32.0); Chloride 107 mmol/L (98-108); Creatinine, Serum 0.95 mg/dL (0.70-1.20); EST Glomerular Filtration Rate 100 (>60); Estimated Creatinine Clearance 143.63 ml/min (50-250); Glucose 108 mg/dL (70-99); Potassium 4.2 mmol/L (3.3-5.1); Sodium Level 138 mmol/L (133-145)
[2024-09-27 12:28] VITALS: BP 215/119; PULSE 65; RESP 14; O2SAT 98
[2024-09-27 12:41] VITALS: BP 220/130; PULSE 16; RESP 96; TEMP 36.1; O2SAT 98
== END 2024-09-27 12:50 | disposition home or self-care (01) ==
PROVIDERS: Emergency Provider Emergency Medicine; PCP Student in an Organized Health Care Education/Training Program; Visit Provider Emergency Medicine
DX: J06.9 Acute upper respiratory infection, unspecified (principal); R80.9 Proteinuria, unspecified; R31.21 Asymptomatic microscopic hematuria; Z87.891 Personal history of nicotine dependence; I10 Essential (primary) hypertension; E78.00 Pure hypercholesterolemia, unspecified; I16.0 Hypertensive urgency; R05.9 Cough, unspecified; Z79.899 Other long term (current) drug therapy
CPT/HCPCS: 80048; 81001; 93005; 99283

== ENCOUNTER 2024-12-12 17:58 | Emergency (ER) | payer SELFPAY ==
[2024-12-12 17:58] VITALS: BP 198/121; PULSE 113; RESP 16; TEMP 36.8; O2SAT 97; BMI 41.6
[2024-12-12 18:03] VITALS: BP 196/110
--- NOTE | 2024-12-12 18:03 | ED.RN ---
EYAL CHANGED DUE TO BLOOD PRESSURE
--- NOTE | 2024-12-12 18:59 | ED.VIS.LOWEX ---
HPI History of Present Illness HPI Narrative: 49-year-old male history of hypertension states he did not take his blood pressure medication yet today. Came in for right heel pain. 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 He has been having pain in his right heel. Denies any fall injury or trauma to the heel. No prior foot surgery. Chief Complaint: Lower Extremity Injury Informant: patient Onset/Context/Timing Onset: Days Context: Gradual Onset Timing: Continuous Quality of Pain: Sharp Current Severity: Moderate Maximum Severity: Moderate Associated Symptoms Associated Symptoms: Negative for Parasthesia, Weakness or Loss of Funtion Narrative Narrative: 49 male history of hypertension and right heel pain. Denies any trauma. No fever or redness. No swelling. Has been walking more at work. Prior similar symptoms: No Recent Illness/Hospitalization: No PFSH PFSH Medical History MRSA (methicillin resistant staph aureus) culture positive Hypertension Hypercholesterolemia Depression Arthritis History of eye injury Home Medications ?Medication ?Instructions ?Recorded ?Last Taken ?Type hydrochlorothiazide 12.5 mg tablet 12.5 mg PO DAILY #30 tabs 09/27/24 Unknown Rx lisinopril 10 mg tablet 10 mg PO DAILY #30 tabs 09/27/24 Unknown Rx Allergy/AdvReac Type Severity Reaction Status Date / Time No Known Allergies Allergy Verified 12/12/24 17:59 Family History Other Heart disease Kidney disease Surgical History History of facial surgery History of carpal tunnel release Social History Smoking Status: Former smoker ROS ROS ED ROS Narrative Denies recent illness. No chest pain. No headache. Constitutional Constitutional ED: Denies chills or fever(s) Eyes Eyes: Denies blurry vision ENT ENT ED: Denies ear pain Cardiovascular Cardiovascular: Denies chest pain Respiratory/Chest Respiratory/Chest: Denies cough Gastrointestinal Gastrointestinal: Denies abdominal pain Genitourinary Genitourinary ED: Denies dysuria Musculoskeletal Musculoskeletal: Denies arthralgias Integumentary Denies abscess Neurologic Neurologic: Denies headache(s) Psychiatric Psychiatric: Denies anxiety Endocrine Endocrinology: Denies polydipsia Hematologic/Lymphatic Hematologic/Lymphatic: Denies easy bleeding or easy bruising Allergic/Immunologic Allergic/Immunologic ED: Denies mouth swelling, tongue swelling or urticaria EXAM Physical Exam Narrative Exam Narrative: Well-appearing 49-year-old male sitting upright in bed vital signs initial pressure 190/120 1 repeat 196/110 he is in no distress he has no headache or chest pain. States he did not take his blood pressure medication today. Believes he is on lisinopril. 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 Left eye pupils round reactive light. No facial trauma currently. Neck nontender no JVD. Lungs clear to auscultation. Heart regular rhythm no murmur. Chest wall nontender. Abdomen soft nontender. Moving all 4 extremities. Nontender no edema except his right heel is tender to palpation. Does not appear to be plantar fasciitis. There is no deformity of the right heel there is no puncture wound or signs of trauma. He has normal dorsi plantarflexion. There is no redness, warmth or swelling. There is no discoloration of the skin. There is no signs of a puncture wound. He has a normal DP pulse. The rest of his foot is nontender. Neurologically he is awake and alert. Blind in his right eye. Const Vital Signs: 12/12/24 17:58 12/12/24 18:03 12/12/24 19:59 Temperature 98.2 F Temperature Source Temporal Pulse Rate 113 H Respiratory Rate 16 18 Blood Pressure 198/121 H 196/110 H 207/111 H Blood Pressure Mean 146 138 143 Pulse Ox 97 98 Oxygen Delivery Method Room Air Room Air Positive well nourished, well developed and obese; Negative for cachectic, contractures or unkempt General Appearance ED: well developed and NAD; Negative for unkempt, cachectic or contractures Nutritional Appearance: obese; Negative for cachectic HEENT Reports moist mucous membranes normocephalic and atraumatic Eyes Eyes Narrative: Blind right eye. Scarring. Neck full ROM and supple Chest Wall inspection of chest normal and palpation of chest normal Resp normal respiratory effort, no retractions and clear to auscultation bilaterally Cardio regular rate, regular rhythm, S1 normal heart sound, S2 normal heart sound and no murmurs GI non-tender, non-distended and no masses Back/Spine no CVA tenderness General Back: Negative for CVA tenderness Cervical Spine: Negative for cervical spine tenderness Thoracic Spine / Upper Back: Negative for thoracic spinal tenderness Lumbar Spine / Lower Back: Negative for lumbar spinal tenderness Extremity normal to inspection and full ROM Extremity Narrative: Except tender on the right heel at the bottom. No puncture wound. No redness or warmth. No swelling. No discoloration. Neuro oriented x3, No CN's II-XII intact bilaterally, moves all extremities and no sensory deficits noted Neuro Narrative: Blind right eye. Sensorium / Orientation: alert, oriented to person, oriented to place and oriented to time Motor Exam: strength 5/5 throughout Psych mental status grossly normal Appearance: Negative for unkempt Skin no wounds Lesions: no lesions Rashes: no rashes MDM MDM MDM Narrative Medical decision making narrative: 49-year-old male right heel pain possible heel spur. Versus overuse. Also acute on chronic hypertension did not take his blood pressure medication today has no other complaints will be given 20 mg p.o. of lisinopril. Repeat exam patient is doing well at 8:55 PM. He will be discharged home. Will repeat check his blood pressure prior to discharge. I did go over his x-rays with him. This may all be just some soft tissue inflammation versus an early heel spur. Radiography Diagnostic Testing: Clinical Impression(s) from Imaging Studies Foot X-Ray 12/12/24 19:09 IMPRESSION: Unremarkable right foot radiographs. Reading Location: [facility] Right foot x-ray 3 views interpreted by myself and the radiologist unremarkable. Possible early heel spur. No fracture. No dislocation. Discharge Plan Triage Chief Complaint: Lower Extremity Injury ED Provider: Tyson Alvarado Dx/Rx/DC Orders Clinical Impression: Heel pain Instructions: ED Heel Spur Prescriptions: No Action lisinopril 10 mg tablet 10 mg PO DAILY Qty: 30 0RF hydrochlorothiazide 12.5 mg tablet 12.5 mg PO DAILY Qty: 30 0RF Primary Care Provider: Eric Pichardo Referrals: Eric Pichardo DO [Primary Care Provider] - Saman Belcher DPM [Med Staff - Active Staff] - As Needed Activity Restrictions/Additional Instructions: Ice to heel. Rest. Motrin for pain and inflammation. Tylenol for pain. Get the shoe inserts the heel cups that all decrease the pain and inflammation. Follow-up with the transverse abdominal muscle surgeon if you are not improving. This could just be inflammation of the soft tissue. You might be developing an early heel spur. Print Language: Kosovan Disposition Disposition: Home, Self Care
--- NOTE | 2024-12-12 19:09 | RAD_ITS ---
PROCEDURE: RIGHT FOOT MIN 3 VIEWS 12/12/2024 REASON FOR EXAM: ATRAUMATIC RIGHT HEEL PAIN TECHNIQUE: RIGHT FOOT MIN 3 VIEWS COMPARISON: None. FINDINGS: No acute fracture or dislocation. Alignment is anatomic. Preserved joint spaces. No aggressive osseous lesion. No focal soft tissue swelling or radiopaque foreign body. RAD/Foot min 3 Views IMPRESSION: Unremarkable right foot radiographs. Reading Location: [id number]
[2024-12-12 19:59] VITALS: BP 207/111; RESP 18; O2SAT 98
[2024-12-12 21:10] VITALS: BP 210/120; PULSE 97; RESP 16; TEMP 36.6; O2SAT 96
== END 2024-12-12 21:11 | disposition home or self-care (01) ==
PROVIDERS: Emergency Provider Emergency Medicine; PCP Student in an Organized Health Care Education/Training Program; Visit Provider Emergency Medicine
DX: M79.671 Pain in right foot (principal); I10 Essential (primary) hypertension; Z87.891 Personal history of nicotine dependence; E78.00 Pure hypercholesterolemia, unspecified; X58.XXXA Exposure to other specified factors, initial encounter; Y93.01 Activity, walking, marching and hiking; Y92.89 Other specified places as the place of occurrence of the external cause; Z79.899 Other long term (current) drug therapy
CPT/HCPCS: 73630; 99282

== ENCOUNTER 2025-05-06 14:23 | Emergency (ER) | payer SELFPAY ==
[2025-05-06 14:24] VITALS: BP 200/104; PULSE 91; RESP 18; TEMP 36.6; O2SAT 98; BMI 41.0
--- OUTSIDE RECORDS SUMMARY | 2025-05-06 14:45 | XMS RPT_ITS | CCD ---
Author Organization [facility] CliniSyct Care Team Providers Care Manager Cost Name Role Phone PROVIDER, UNKNOWN Attending Unavailable VALLEERIC Primary Care Unavailable PATIENT, SELF Referring Unavailable PROVIDER, UNKNOWN Admitting Unavailable PROVIDER, UNKNOWN Admitting Unavailable VALLEERIC Primary Care Unavailable PATIENT, SELF Referring Unavailable PROVIDER, UNKNOWN Attending Unavailable PROVIDER, UNKNOWN Attending Unavailable PROVIDER, UNKNOWN Admitting Unavailable VALLEERIC Primary Care Unavailable PATIENT, SELF Referring Unavailable PROVIDER, UNKNOWN Attending Unavailable PROVIDER, UNKNOWN Admitting Unavailable VALLEERIC Primary Care Unavailable PATIENT, SELF Referring Unavailable PROVIDER, UNKNOWN Attending Unavailable ERIC VALLE Primary Care Unavailable PATIENT, SELF Referring Unavailable PROVIDER, UNKNOWN Admitting Unavailable QUIANA SALTER Referring Unavailable ERIC VALLE L Primary Care Unavailable ERIC VALLE L Primary Care Unavailable MARIAMA VOSS Attending Unavailable ERIC VALLE Primary Care Unavailable Eric Valle DO Primary Care Provider Eric Valle DO Primary Care Provider Dr. Eric Valle DO Primary Care Provider Dr. Bart Quintero MD Attending Provider Dr. Bart Quintero MD Emergency Provider [phone] Tyson Alvarado MD Emergency Provider Davonte Winkler Consulting Unavailable Davonte Winkler Attending Unavailable Eric Valle Primary Care Unavailable Davonte Winkler Admitting Unavailable Tyson Alvarado Attending Unavailable Valle, Eric Primary Care Unavailable Jace Hodges Attending Unavailable Valle, Eric Primary Care Unavailable Bart Quintero Attending Unavailable Valle, Eric Primary Care Unavailable Davonte Winkler Attending Unavailable Valle, Eric Primary Care Unavailable Davonte Winkler Admitting Unavailable Medications Current Medications Medication Drug Class(es) Dates Sig (Normalized) Sig (Original) atorvastatin 40 mg oral tablet (2 sources) HMG-CoA Reductase Inhibitor Start: 12-31-2017 take 1 tablet by mouth at bedtime atorvastatin (LIPITOR) 40 mg tablet TAKE 1 TABLET BY MOUTH AT BEDTIME 90 tablet 3 12/31/2017 Active Comment on above: TAKE 1 TABLET BY DEJA AT BEDTIME 24 hr buPROPion hydrochloride 150 mg extended release oral tablet (5 sources) Aminoketone Start: 06-29-2019 buPROPion XL (WELLBUTRIN XL) 150 mg 24 hr tablet Bupropion Xl Active 150 MG DAILY June 29, 2019 2:41pm 06/29/2019 Active Start: 06-29-2019 End: 09-27-2024 take 1 tablet by mouth once daily Bupropion Hcl 150 MG tablet extended release 24 hr Discontinued 150 mg PO DAILY June 29, 2019 1:00am September 27, 2024 11:47am DEPRESSION Comment on above: Bupropion Xl Active 150 MG DAILY June 29, 2019 2:41pm estradiol 1 mg oral tablet (5 sources) Estrogen Start: 05-08-2022 estradiol (ESTRACE) 1 mg tablet 05/08/2022 Active Start: 10-12-2020 End: 09-27-2024 take 1 tablet by mouth once daily Estradiol 2 mg tablet Discontinued 2 mg PO DAILY October 12, 2020 12:00am September 27, 2024 11:47am gabapentin 100 mg oral capsule (2 sources) Anti-epileptic Agent Start: 11-22-2021 take 1 capsule by mouth once daily at bedtime gabapentin (NEURONTIN) 100 mg capsule Indications: Nerve pain Take 1 capsule by mouth daily at bedtime for 30 days. 30 capsule 1 11/22/2021 Active Comment on above: Take 1 capsule by [facility] daily at bedtime for 30 days. hydroCHLOROthiazide 12.5 mg oral tablet (1 source) Thiazide Diuretic Start: 09-27-2024 take 1 tablet by mouth once daily Hydrochlorothiazide 12.5 mg tablet Active 12.5 mg PO DAILY September 27, 2024 12:00am lisinopril 10 mg oral tablet (1 source) Angiotensin Converting Enzyme Inhibitor Start: 09-27-2024 take 1 tablet by mouth once daily Lisinopril 10 mg tablet Active 10 mg PO DAILY September 27, 2024 12:00am spironolactone 100 mg oral tablet (2 sources) Aldosterone Antagonist Start: 12-13-2015 spironolactone (ALDACTONE) 100 mg tablet 100 mg. 12/13/2015 Active Comment on above: 100 mg. Completed/Discontinued Medications Medication Drug Class(es) Dates Sig (Normalized) Sig (Original) acetaminophen 325 mg / HYDROcodone bitartrate 5 mg oral tablet (2 sources) Opioid Agonist Start: 2023 End: 02-29-2024 Hydrocodone-Acetami nophen 5-325 mg tablet Discontinued 1 {tbl} PO EVERY 6 HOURS NEEDED as needed for Pain 10 3 2023 February 29, 2024 11:12am Open fracture of distal phalanx of left great toe Start: 2023 take 1 tablet by deja th every six hours as needed Hydrocodone-Acetaminophen Active 1 TABLE T PO EVERY 6 HOURS NEEDED 10 3 2023 amLODIPine 10 mg oral tablet (1 source) Dihydropyridine Calcium Channel Kimberly Start: 03-01-2024 End: 09-27-2024 take 1 tablet by mouth once daily Amlodipine 10 mg Tablet Discontinued 10 mg PO DAILY 30 30 0 March 01, 2024 12:00am September 27, 2024 11:47am cephalexin 500 mg oral capsule (5 sources) Cephalosporin Antibacterial Start: 2023 End: 02-29-2024 take 1 capsule by mouth four times daily Cephalexin 500 MG capsule Discontinued 500 mg PO 4 TIMES DAILY 40 0 May 15, 2023 12:47am February 29, 2024 11:11am Start: 10-13-2020 End: 2023 take 1 capsule by mouth every twelve hours Cephalexin 500 MG capsule Discontinued 500 mg PO EVERY 12 HOURS 14 October 13, 2020 12:00am May 15, 2023 12:47am cyclobenzaprine hydrochloride 10 mg oral tablet (3 sources) Muscle Relaxant Start: 11-29-2021 End: 02-29-2024 take 1 tablet by mouth at bedtime as needed for muscle spasms Cyclobenzaprine 10 MG tablet Discontinued 10 mg PO AT BEDTIME NEEDED as needed for Muscle Spasm 10 0 November 29, 2021 11:21am February 29, 2024 11:11am doxycycline monohydrate 100 mg oral capsule (1 source) Tetracycline-clas s Drug Start: 03-01-2024 End: 09-27-2024 take 1 capsule by mouth twice daily Doxycycline Monohydrate 100 mg capsule Discontinued 100 mg PO TWICE A DAY March 01, 2024 12:00am September 27, 2024 11:47am ibuprofen 600 mg oral tablet (1 source) Nonsteroidal Anti-inflammatory Drug Start: 06-29-2024 End: 09-27-2024 take 1 tablet by mouth every six hours as needed for pain Ibuprofen 600 mg tablet Discontinued 600 mg PO EVERY 6 HOURS NEEDED as needed for pain June 29, 2024 1:00am September 27, 2024 11:47am naproxen 500 mg oral tablet (4 sources) Nonsteroidal Anti-inflammatory Drug Start: 11-29-2021 End: 02-29-2024 take 1 tablet by mouth twice daily as needed Naproxen 500 MG tablet Discontinued 500 mg PO TWICE DAILY NEEDED November 29, 2021 12:00am February 29, 2024 11:12am Comment on above: Take 1 tablet by deja twice daily with meals. omeprazole 20 mg delayed release oral capsule (4 sources) Proton Pump Inhibitor Start: 02-29-2024 End: 09-27-2024 take 1 capsule by mouth once daily Omeprazole 20 mg capsule,delayed release(DR/EC) Discontinued 20 mg PO DAILY February 29, 2024 12:00am September 27, 2024 11:47am GERD Start: 05-04-2017 End: 02-29-2024 Omeprazole Mg Discontinued 1 {tbl} PO DAILY May 04, 2017 1:00am February 29, 2024 12:38pm Start: 05-04-2017 take 1 tablet by deja th once daily Omeprazole Active 1 TABLET PO DAILY May 04, 2017 12:00am Start: 05-04-2017 take 1 tablet by deja th once daily Omeprazole Active 1 TABLET PO DAILY May 04, 2017 1:00am predniSONE 20 mg oral tablet (1 source) Start: 10-21-2023 End: 02-29-2024 take 1 tablet by mouth twice daily Prednisone 20 mg tablet Discontinued 20 mg PO TWICE A DAY October 21, 2023 12:00am February 29, 2024 11:12am Problems Active Problems Problem Classification Problem Date Documented Date Episodic/Chronic Abdominal pain (3 sources) Abdominal pain; Translations: [Unspecified abdominal pain] 10-13-2020 Episodic Developmental disorders (2 sources) Developmental academic disorder; Translations: [Developmental disorder of scholastic skills, unspecified] Onset: 02-17-2014 02-17-2014 Chronic Disorders of lipid metabolism (3 sources) Hypercholesterolemia ; Translations: [Pure hypercholesterolemia , unspecified] 11-29-2021 Chronic Fracture of lower limb (2 sources) Open fracture of distal phalanx of great toe; Translations: [Displaced fracture of distal phalanx of left great toe, initial encounter for open fracture] 2023 Episodic Genitourinary symptoms and ill-defined conditions (2 sources) Proteinuria; Translations: [Proteinuria, unspecified] 10-05-2024 Episodic Hypertension with complications and secondary hypertension (1 source) Hypertensive urgency ; Translations: [Hypertensive urgency] 10-05-2024 Chronic Inflammation; infection of eye (except that caused by tuberculosis or sexually transmitteddisease) (3 sources) Conjunctivitis; Translations: [Unspecified conjunctivitis] 06-30-2019 Episodic Mood disorders (2 sources) Depressive disorder; Translations: [Depression] Onset: 02-17-2014 02-17-2014 Chronic Other circulatory disease (2 sources) Elevated blood-pressure reading without diagnosis of hypertension; Translations: [Elevated blood-pressure reading, without diagnosis of hypertension] 2023 Episodic Other connective tissue disease (1 source) Pain in left foot; Translations: [Pain in left foot] Episodic Other connective tissue disease (1 source) Heel pain; Translations: [Pain in unspecified foot] 12-12-2024 Episodic Other connective tissue disease (1 source) Pain in right foot; Translations: [Pain in right foot] Onset: 12-15-2024 Episodic Other lower respiratory disease (1 source) Cough; Translations: [Cough] 10-29-2023 Episodic Other nervous system disorders (2 sources) Carpal tunnel syndrome of left wrist; Translations: [Carpal tunnel syndrome, left upper limb] Onset: 06-18-2017 06-18-2017 Chronic Other nervous system disorders (2 sources) Carpal tunnel syndrome of right wrist; Translations: [Carpal tunnel syndrome, right upper limb] Onset: 06-18-2017 06-18-2017 Chronic Other non-traumatic joint disorders (2 sources) Hip pain; Translations: [Pain in unspecified hip] 03-30-2019 Episodic Other non-traumatic joint disorders (1 source) Acute ankle pain; Translations: [Pain in left ankle and joints of left foot] Episodic Other non-traumatic joint disorders (1 source) Pain in unspecified hip; Translations: [Arthralgia of hip] 03-30-2019 Episodic Other nutritional; endocrine; and metabolic disorders (2 sources) Body mass index 30+ - obesity; Translations: [Obesity, unspecified] Onset: 11-16-2013 11-16-2013 Chronic Other upper respiratory disease (2 sources) Allergic rhinitis; Translations: [Allergic rhinitis, unspecified] Onset: 10-01-2007 10-01-2007 Chronic Other upper respiratory infections (1 source) Upper respiratory infection; Translations: [Acute upper respiratory infection, unspecified] 10-05-2024 Episodic Residual codes; unclassified (2 sources) Obstructive sleep apnea syndrome; Translations: [Obstructive sleep apnea (adult) (pediatric)] Onset: 11-21-2015 11-21-2015 Chronic Residual codes; unclassified (1 source) Patient's condition stable 03-30-2019 Episodic Spondylosis; intervertebral disc disorders; other back problems (8 sources) Low back pain; Translations: [Low back pain] Onset: 09-21-2008 09-21-2008 Episodic Sprains and strains (9 sources) Sprain of ligament of elbow; Translations: [Unspecified sprain of unspecified elbow, initial encounter] Onset: 04-14-2006 04-14-2006 Episodic Unclassified (2 sources) Gender identity disorder; Translations: [Sexual and gender identity disorders] Onset: 11-16-2013 11-16-2013 Unclassified (1 source) Cough, unspecified; Translations: [Cough, unspecified] Onset: 09-30-2024 Urinary tract infections (3 sources) Acute urinary tract infection; Translations: [Urinary tract infection, site not specified] 10-13-2020 Episodic Past or Other Problems Problem Classification Problem Date Documented Da te Episodic/Chronic Other connective tissue disease (2 sources) Enthesopathy; Translations: [Enthesopathy, unspecified] Onset: 01-01-2007 01-01-2007 Episodic Other screening for suspected conditions (not mental disorders or infectious disease) (2 sources) Patient encounter status; Translations: [Encounter for screening, unspecified] Onset: 09-21-2008 09-21-2008 Episodic Skin and subcutaneous tissue infections (3 sources) Cellulitis; Translations: [Cellulitis, unspecified] Onset: 03-01-2024 02-29-2024 Episodic Superficial injury; contusion (6 sources) Contusion of forearm; Translations: [Contusion of unspecified forearm, initial encounter] Onset: 07-15-2024 07-04-2015 Episodic Unclassified (2 sources) Patient's condition stable; Translations: [Patient in stable condition at discharge] 03-30-2019 Viral infection (2 sources) Herpes zoster; Translations: [Zoster without complications] Onset: 05-25-2017 06-03-2017 Episodic Results Test Name Value Interpretation Reference Range Facility Emergency Department Summary on 12-12-2024 Emergency Department Summary [facility] Medical Records Department [address] [place] [address] Emergency Department Summary 12/12/24 MR#: [id number] Acct: [id number] Name: BEBETO ALICEA . Rep #: [id number] : 1975 49 From: Tyosn Alvarado MD PCP: Dr. Eric Valle, Status:REG ER Location: ED HPI History of Present Illness HPI Narrative: 49-year-old male history of hypertension states he did not take his blood pressure medication yet today. Came in for right heel pain. 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 He has been having pain in his right heel. Denies any fall injury or trauma to the heel. No prior foot surgery. Chief Complaint: Lower Extremity Injury Informant: patient Onset/Context/Timing Onset: Days Context: Gradual Onset Timing: Continuous Quality of Pain: Sharp Current Severity: Moderate Maximum Severity: Moderate Associated Symptoms Associated Symptoms: Negative for Parasthesia, Weakness or Loss of Funtion Narrative Narrative: 49 male history of hypertension and right heel pain. Denies any trauma. No fever or redness. No swelling. Has been walking more at work. Prior similar symptoms: No Recent Illness/Hospitalization : No [facility]SH [facility] Medical History MRSA (methicillin resistant staph aureus) culture positive Hypertension Hypercholesterolemia Depression Arthritis History of eye injury Home Medications ???Medication ???Instructions ???Recorded ???Last Taken ???Type hydrochlorothiazide 12.5 mg tablet 12.5 mg PO DAILY #30 tabs Unknown Rx lisinopril 10 mg tablet 10 mg PO DAILY #30 tabs 09/27/24 U nknown Rx Allergy/AdvReac Type Severity Reaction Status Date / Time No Known Allergies Allergy Verified 12/12/24 17:59 Family History Other Heart disease Kidney disease Surgical History History of facial surgery History of carpal tunnel release Social History Smoking Status: Former smoker ROS ROS ED ROS Narrative Denies recent illness. No chest pain. No headache. Constitutional Constitutional ED: Denies chills or fever(s) Eyes Eyes: Denies blurry vision ENT ENT ED: Denies ear pain Cardiovascular Cardiovascular: Denies chest pain Respiratory/Chest Respiratory/Chest: Denies cough Gastrointestinal Gastrointestinal: Denies abdominal pain Genitourinary Genitourinary ED: Denies dysuria Musculoskeletal Musculoskeletal: Denies arthralgias Integumentary Denies abscess Neurologic Neurologic: Denies headache(s) Psychiatric Psychiatric: Denies anxiety Endocrine Endocrinology: Denies polydipsia Hematologic/Lymphatic Hematologic/Lymphatic: Denies easy bleeding or easy bruising Allergic/Immunologic Allergic/Immunologic ED: Denies mouth swelling, tongue swelling or urticaria EXAM Physical Exam Narrative Exam Narrative: Well-appearing 49-year-old male sitting upright in bed vital signs initial pressure 190/120 1 repeat 196/110 he is in no distress he has no headache or chest pain. States he did not take his blood pressure medication today. Believes he is on lisinopril. 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 Left eye pupils round reactive light. No facial trauma currently. Neck nontender no JVD. Lungs clear to auscultation. Heart regular rhythm no murmur. Chest wall nontender. Abdomen soft nontender. Moving all 4 extremities. Nontender no edema except his right heel is tender to palpation. Does not appear to be plantar fasciitis. There is no deformity of the right heel there is no puncture wound or signs of trauma. He has normal dorsi plantarflexion. There is no redness, warmth or swelling. There is no discoloration of the skin. There is no signs of a puncture wound. He has a normal DP pulse. The rest of his foot is nontender. Neurologically he is awake and alert. Blind in his right eye. Const Vital Signs: 12/12/24 17:58 12/12/24 18:03 12/12/24 19:59 Temperature 98.2 F Temperature Source Temporal Pulse Rate 113 H Respiratory Rate 16 18 Blood Pressure 198/121 H 196/110 H 207/111 H Blood Pressure Mean 146 138 143 Pulse Ox 97 98 Oxygen Delivery Method Room Air Room Air Positive well nourished, well developed and obese; Negative for cachectic, contractures or unkempt General Appearance ED: well developed and NAD; Negative for unkempt, cachectic or contractures Nutritional Appearance: obese; Negative for cachectic HEENT Reports moist mucous membranes normocephalic and atraumatic Eyes Eyes Narrative: Blind right eye. Scarring. Neck full ROM and supple Chest Wall (more content not included)... Normal [facility] Foot min 3 Viewson 5 Foot min 3 Views [facility] Imaging Services [address] [place] [address] Foot min 3 Views MR#: [id number] Acct: [id number] Name: BEBETO ALICEA . Rep #: [id number] : 1975 M 49 From: Alhaji Vaughn MD PCP: Dr. Eric Valle, Status: REG ER Study: Foot min 3 Views Date of Exam: 12/12/24 Exam# [id number] Ordering Dr: Tyson Alvarado MD PROCEDURE: RIGHT FOOT MIN 3 VIEWS 12/12/2024 REASON FOR EXAM: ATRAUMATIC RIGHT HEEL PAIN TECHNIQUE: RIGHT FOOT MIN 3 VIEWS COMPARISON: None. FINDINGS: No acute fracture or dislocation. Alignment is anatomic. Preserved joint spaces. No aggressive osseous lesion. No focal soft tissue swelling or radiopaque foreign body. RAD/Foot min 3 Views IMPRESSION: Unremarkable right foot radiographs. Reading Location: [facility] CC: Dr. Tyson Alvarado MD; Dr. Eric Valle DO 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: Signed Normal [facility] 12 Lead EKGon 09-27-2024 12 Lead EKG [facility] Cardiovascular Services [address] [place] [address] 12 Lead EKG 09/27/24 1144 MR#: [id number] Acct: [id number] Name: BEBETO ALICEA Rep #: [id number] : 1975 49 From: Johnie Morin MD Attending Dr: Status: DEP ER Ordering Dr: Bart Quintero MD Date: 09/27/24 Location: ED Sex: M C Admitted: Test Reason : GENERAL Blood Pressure : */* mmHG Vent. Rate : 67 BPM Atrial Rate : 67 BPM P-R Int : 150 ms QRS Dur : 100 ms QT Int : 384 ms P-R-T Axes : 47 -23 21 degrees QTcB Int : 405 ms Normal sinus rhythm Minimal voltage criteria for LVH, may be normal variant ( R in aVL ) Borderline ECG Confirmed by Johnie Morin ([id number]), tape editor ALLEY FITZPATRICK ([id number]) on 09/30/2024 12:04:03 PM Referred By: Confirmed By: Johnie Morin 09/30/24 1204 Date Johnie Morin MD CC: Dr. Eric Valle DO; Dr. Bart Quintero MD Signed [facility] Anion gap in Serum or Plasma Ordered By: Bart Quintero on 09-27-2024 Anion gap [Moles/Vol] 8 mmol/L 10-06 [facility] BUN/creatinine ratioOrdered By: Bart Quintero on 09-27-2024 Urea nitrogen/Creatinine [Mass ratio] 19.9 mg/mg 03-13 [facility] Basic Metabolic Profile (BMP )on 09-27-2024 BUN/CRE 19.9 RATIO Normal 03-13 [facility] Comment on above: Performed By: #### L 500.2500 ####[facility] [address] [place], [address] Calcium [Mass/Vol] 9.0 mg/dL Normal 7.6-11.0 [facility] Comment on above: Performed By: #### L 500.2500 ####[facility] [address] [place], [address] Chloride [Moles/Vol] 107 mmol/L Normal 98-108 [facility] Comment on above: Performed By: #### L 500.2500 ####[facility] [address] [place], [address] CO2 [Moles/Vol] 22.7 mmol/L Normal 21.0-32.0 [facility] Comment on above: Performed By: #### L 500.2500 ####[facility] [address] [place], [address] Creatinine [Mass/Vol] 0.95 mg/dL Normal 0.70-1.20 [facility] Comment on above: Performed By: #### L 500.2500 ####[facility] [address] [place], [address] ECRCL 143.63 ml/min Normal 50-250 [facility] Comment on above: Performed By: #### L 500.2500 ####[facility] [address] [place], [address] GAP 8 Normal 5-15 [facility] Comment on above: Performed By: #### L 500.2500 ####[facility] [address] [place], [address] GFR/1.73 sq M.predicted among non-blacks MDRD (S/P/Bld) [Vol rate/Area] 100 mL/min/{1.73_m2} Normal >60 [facility] Comment on above: Result Comment: mL/m in/1.73m2 CKD-EPI Creatinine Equation (2020) Performed By: #### L 500.2500 ####[facility] [address] [place], [address] Glucose [Mass/Vol] 108 mg/dL High 70-99 [facility] Comment on above: Performed By: #### L 500.2500 ####[facility] [address] [place], [address] Potassium [Moles/Vol] 4.2 mmol/L Normal 3.3-5.1 [facility] Comment on above: Performed By: #### L 500.2500 ####[facility] [address] [place], [address] Sodium [Moles/Vol] 138 mmol/L Normal 133-145 [facility] Comment on above: Performed By: #### L 500.2500 ####[facility] [address] [place], [address] Urea nitrogen [Mass/Vol] 19 mg/dL Normal 4-19 [facility] Comment on above: Performed By: #### L 500.2500 ####[facility] [address] [place], [address] Bilirubin Test strip Ql (U)O rdered By: Bart Quintero on 09-27-2024 Bilirubin Ql (U) Negative Negative [facility] Carbon dioxide, total [Moles /volume] in Central venous bloodOrdered By: Bart Quintero on 09-27-2024 CO2 [Moles/Vol] 22.7 mmol/L 21.0-32.0 [facility] Chloride assayOrdered By: Ug o Quintero on 09-27-2024 Chloride [Moles/Vol] 107 mmol/L 98-108 [facility] Emergency Department Summary on 09-27-2024 Emergency Department Summary [facility] Medical Records Department [address] [place] [address] Emergency Department Summary 09/27/24 MR#: [id number] Acct: [id number] Name: BEBETO ALICEA CASSIE Rep #: [id number] : 1975 49 From: Bart Quintero MD PCP: Dr. Eric Valle DO Status:DEP ER Location: ED ADDENDUM by Dr. Bart Quintero MD on 09/27/24 at 1544 EKG that was obtained at 1144 revealed a normal sinus rhythm rate of 67. WA interval is 150 ms. Cures duration 100 ms. QT duration 304 ms. [place] is normal. There is no ischemic changes noted. 09/27/24 1544 Cosigner Signature (if applicable): cc: Dr. Eric Valle, DO * Signed HPI History of Present Illness Chief Complaint: Cough Detail of Chief Complaint: Upper respiratory tract symptoms Informant: patient Onset/Context/Timing Onset: Yesterday Context: Sudden Onset Timing: Continuous and Waxes and wanes Quality: Rhinorrhea, congestion, nonproductive cough and mild shortness of breath Location: Upper respiratory Current Severity: Gone Maximum Severity: Mild Worsened by: Mild dyspnea with exertion Relieved by: Breast Associated Symptoms Associated Symptoms: No other symptoms Narrative Narrative: Patient is a 49-year-old male. He is not seen a physician in some time. He presents with upper respiratory tract infection symptoms started yesterday. His daughter and granddaughter who live with him are both ill with upper respiratory symptoms. Patient denies headache, visual, ocular auditory symptoms. Patient denies neck pain or neck stiffness. Patient denies chest discomfort of any type. Nuys pleuritic pain. There is no history of VTE. Denies leg pain or swelling. Patient denies headache, paresthesia, anesthesia Medicus. Nuys problems with coordination or balance. No trouble with speech or swallowing. Patient was admitted February [address] Davonte Winkler' discharge report was reviewed. Prior similar symptoms: No Recent Illness/Hospitalization : No PFSH PFSH Medical History MRSA (methicillin resistant staph aureus) culture positive Hypertension Hypercholesterolemia Depression Arthritis History of eye injury Home Medications ???Medication ???Instructions ???Recorded ???Last Taken ???Type hydrochlorothiazide 12.5 mg tablet 12.5 mg PO DAILY #30 tabs Unknown Rx lisinopril 10 mg tablet 10 mg PO DAILY #30 tabs 09/27/24 U nknown Rx Allergy/AdvReac Type Severity Reaction Status Date / Time No Known Allergies Allergy Verified 09/27/24 10:44 Family History Other Heart disease Kidney disease Surgical History History of facial surgery History of carpal tunnel release Social History Smoking Status: Former smoker ROS ROS ED Constitutional Constitutional ED: Reports fever(s) and subjective; Denies chills, sweats or weight loss Eyes Eyes: Denies blurry vision, change in vision or diplopia ENT ENT ED: Reports rhinorrhea and sore throat; Denies ear pain Cardiovascular Cardiovascular: Denies chest pain, orthopnea, palpitations, paroxysmal nocturnal dyspnea or racing heartbeat Respiratory/Chest Respiratory/Chest: Reports cough and dyspnea on exertion; Denies dyspnea, orthopnea, paroxysmal nocturnal dyspnea or sputum Gastrointestinal Gastrointestinal: Denies abdominal pain, diarrhea, nausea or vomiting Musculoskeletal Musculoskeletal: Denies arthralgias or myalgias Integumentary Denies rash Neurologic Neurologic: Reports other Details: Further detailed HPI narrative ; Denies headache(s), paresthesias or weakness Psychiatric Psychiatric: Denies anxiety or depression Endocrine Endocrinology: Denies cold intolerance or heat intolerance Hematologic/Lymphatic Hematologic/Lymphatic: Reports systems reviewed and no addt'l complaints, except as documented EXAM Physical Exam Const Vital Signs: 09/27/24 10:44 09/27/24 10:44 09/27/24 11:48 Temperature 98.3 F Temperature Source Temporal Pulse Rate 89 85 Respiratory Rate 16 22 H Respiratory Effort Normal Respiratory Depth Normal Respiratory Pattern Normal Blood Pressure 192/109 H 200/105 H Blood Pressure Mean 136 136 Pulse Ox 98 98 Oxygen Delivery Method Room Air Room Air Room Air 09/27/24 12:28 Temperature Temperature Source Pulse Rate 65 Respiratory Rate 14 Respiratory Effort Respiratory Depth Respiratory Pattern Blood Pressure 215/119 H Blood Pressure Mean 151 Pulse Ox 98 Oxygen Delivery Method Room Air Positive well nourished and well developed Constitutional Narrative: BMI is 44.2. Patient' (more content not included)... Normal [facility] Glomerular filtration rate ( GFR) estimation/1.73 sq m using serum, plasma, or whole bOrdered By: Bart Quintero on 09-27-2024 GFR/1.73 sq M.predicted among non-blacks MDRD (S/P/Bld) [Vol rate/Area] 100 mL/min/{1.73_m2} >60 [facility] Comment on above: mL/min/1.73m2 CKD-EP I Creatinine Equation (2020) Ketones Test strip Ql (U)Ord ered By: Bart Quintero on 09-27-2024 Ketones Ql (U) Negative Negative [facility] Microscopic analysis of urin e for red blood cells (RBC)Ordered By: Bart Quintero on 09-27-2024 Microscopic analysis of urine for red blood cells (RBC) 0 SEEN /hpf 0-5 [facility] Mucus LM Ql (Urine sed)Order ed By: Bart Quintero on 09-27-2024 Mucus Ql (Urine sed) 0 SEEN /hpf [facility] Nitrite Test strip Ql (U)Ord ered By: Bart Quintero on 09-27-2024 Nitrite Ql (U) Negative Negative [facility] Potassium measurement (mass/ volume)Ordered By: Bart Quintero on 09-27-2024 Potassium (Unsp spec) [Mass/Vol] 4.2 mmol/L 3.3-5.1 [facility] Protein Test strip Ql (U)Ord ered By: Bart Quintero on 09-27-2024 Protein Ql (U) 100 mg/dl High Negative [facility] Serum creatinine measurement (mass/volume)Ordered By: Bart Quintero on 09-27-2024 Creatinine [Mass/Vol] 0.95 mg/dL 0.70-1.20 [facility] Serum glucose measurement (m ass/volume)Ordered By: Bart Quintero on 09-27-2024 Glucose [Mass/Vol] 108 mg/dL High 70-99 [facility] Serum or plasma calcium joann urement (mass/volume)Ordered By: Bart Quintero on 09-27-2024 Calcium [Mass/Vol] 9.0 mg/dL 7.6-11.0 [facility] Serum or plasma urea nitroge n measurement (mass/volume)Ordered By: Bart Quintero on 09-27-2024 Urea nitrogen [Mass/Vol] 19 mg/dL 4-19 [facility] Sodium levelOrdered By: Bart Quintero on 09-27-2024 Sodium [Moles/Vol] 138 mmol/L 133-145 [facility] Squamous epithelial cells de tection in urine sediment by light microscopyOrdered By: Bart Quintero on 09-27-2024 Epithelial cells.squamous LM Ql (Urine sed) 0 SEEN /hpf 0-5 [facility] Urinalysis, Completeon 09-27 BACTERIA 0 SEEN Normal None Seen [facility] Comment on above: Order Comment: CLEAN CATCH Performed By: #### L 400.0001 #### [facility] [address] [place], [address] EPI,SQUAMOUS 0 SEEN Normal 0-5 [facility] Comment on above: Order Comment: CLEAN CATCH Performed By: #### L 400.0001 #### [facility] [address] [place], [address] Mucus Ql (Urine sed) 0 SEEN Normal [facility] Comment on above: Order Comment: CLEAN CATCH Performed By: #### L 400.0001 #### [facility] [address] [place], [address] RBC 0 SEEN Normal 0-5 [facility] Comment on above: Order Comment: CLEAN CATCH Performed By: #### L 400.0001 #### [facility] [address] [place], [address] WBC 0 SEEN Normal 0-5 [facility] Comment on above: Order Comment: CLEAN CATCH Performed By: #### L 400.0001 #### [facility] [address] [place], [place], [phone] ([phone] Urine clarityOrdered By: Bart Quintero on 09-27-2024 Clarity (U) Clear Clear [facility] Urine color determinationOrd ered By: Bart Quintero on 09-27-2024 Color (U) Yellow Yellow [facility] Urine glucose detectionOrder ed By: Bart Quintero on 09-27-2024 Glucose Ql (U) Normal mg/dl Normal [facility] Urine leukocyte esterase det ection by dipstickOrdered By: Bart Quintero on 09-27-2024 Leukocyte esterase Test strip Ql (U) Negative Negative [facility] Urine pHOrdered By: Bart canchola on 09-27-2024 pH (U) 6.5 [pH] 5.0 - 8.0 [facility] Urine sediment bacteria coun t by microscopy (number/high power field)Ordered By: Bart Quintero on 09-27-2024 Bacteria LM.HPF (Urine sed) [#/Area] 0 /[HPF] None Seen [facility] Urine specific gravity measu rementOrdered By: Bartsushant Quintero on 09-27-2024 Specific gravity (U) [Rel density] 1.015 1.002-1.030 [facility] Urine urobilinogen measureme ntOrdered By: Bartsushant Quintero on 09-27-2024 Urobilinogen Ql (U) Normal mg/dl Normal [facility] White blood cell countOrdere d By: Bart Quintero on 09-27-2024 White blood cell count 0 SEEN /hpf 0-5 [facility] Emergency Department Summary on 06-29-2024 Emergency Department Summary [facility] Medical Records Department [address] [place] [id number] Emergency Department Summary 06/29/24 MR#: [id number] Acct: [id number] Name: BEBETO ALICEA Rep #: [id number] : 1975 49 From: Jace Harley PCP: Dr. Eric Valle, Status:REG ER Location: ED HPI History of Present Illness Chief Complaint: Upper Extremity Injury Informant: patient Narrative Narrative: Cvlwm-hoil-shmkfpmd male presents right hand and wrist injury yesterday. Got angry punched a box fan. Abrasions of the hand. Tetanus in last 5 years. No anticoagulants. No medications taken. Denies any allergies. [facility] Medical History MRSA (methicillin resistant staph aureus) culture positive Hypertension Hypercholesterolemia Depression Arthritis History of eye injury Home Medications ???Medication ???Instructions ???Recorded ???Last Taken ???Type bupropion HCl 150 mg 24 hr tablet, 150 mg PO DAILY DEPRESSION 06/29 Unknown History extended release estradiol 2 mg tablet 2 mg PO DAILY 10/12/20 Unknown His tory omeprazole 20 mg capsule,delayed 20 mg PO DAILY GERD 02/29/24 Unkno wn History release amlodipine 10 mg tablet 10 mg PO DAILY 30 days #30 tabs Unknown Rx doxycycline monohydrate 100 mg 100 mg PO BID #20 caps 03/01/24 Un known Rx capsule ibuprofen 600 mg tablet 600 mg PO Q6H PRN PRN pain #20 10/16 Unknown Rx TABLETS Allergy/AdvReac Type Severity Reaction Status Date / Time No Known Allergies Allergy Verified 02/29/24 11:02 Family History Other Heart disease Kidney disease Surgical History History of facial surgery History of carpal tunnel release Social History Smoking Status: Current every day smoker tobacco type: cigarettes ROS ROS ED Constitutional Constitutional ED: Denies fever(s) Cardiovascular Cardiovascular: Denies chest pain Respiratory/Chest Respiratory/Chest: Denies cough Gastrointestinal Gastrointestinal: Denies abdominal pain, diarrhea, nausea or vomiting Musculoskeletal Musculoskeletal: Reports extremity pain; Denies back pain or neck pain Integumentary Reports wounds; Denies rash Neurologic Neurologic: Denies paresthesias or weakness EXAM Physical Exam Const Vital Signs: 06/29/24 09:24 Temperature 98.7 F Temperature Source Oral Pulse Rate 92 Respiratory Rate 18 Blood Pressure 155/120 H Blood Pressure Mean 131 Pulse Ox 100 Oxygen Delivery Method Room Air Positive well nourished and well developed General Appearance ED: well developed HEENT Reports moist mucous membranes normocephalic and atraumatic Eyes Eyes Narrative: Previous right eye trauma, no pupils noted. Neck full ROM Chest Wall Chest: Negative for tenderness Resp normal respiratory effort and normal air movement Effort and Inspection: symmetric chest movement; Negative for respiratory distress Cardio regular rate, regular rhythm and no murmurs Peripheral Pulses: pulses 2+ throughout GI normal to inspection, nondistended, normoactive bowel sounds and non-tender Palpation: Negative for guarding or rebound tenderness present Extremity Extremity Narrative: Right upper extremity: No elbow tenderness. There is tender palpation distal radius no snuffbox tenderness. Swelling dorsal hand with ecchymosis tender distal third metacarpal. No deformities. Abrasions noted across the second and third metacarpal. No laceration. General Extremety ED: Yes edema and tenderness General Extremity: edema Neuro oriented x3 and no sensory deficits noted Sensorium / Orientation: awake and alert Skin Skin Narrative: See above MDM MDM MDM Narrative Medical decision making narrative: Interventions / MDM: Differential diagnosis: Abrasion, contusion Diagnosis considered but do not suspect: Fracture however x-ray negative, compartment syndrome however soft compartments My EKG interpretation: N/A Imaging independently reviewed and interpreted by myself: Three-view x-ray right hand: No fracture or soft tissue swelling. Three-view x-ray right wrist: No fracture, soft tissue swelling also read by radiology. External documents reviewed: N/A Test considered but not ordered:N/A ED course: Patient reports tetanus in last 5 years. Pain hand and wrist. Treated with Motrin and [place]. X-rays of right wrist and hand ordered. X-rays negative. Sergio wrap provided. Will continue Motrin. Discussed RICE therapy. Outpatient follow-up. Re-evaluation: stable Disposition discussed with patient/family/signific ant other: Patient Case discussed with consulti (more content not included)... Normal [facility] Hand Min 3 Viewson 5 Hand Min 3 Views [facility] Imaging Services [address] [place] [address] Hand Min 3 Views MR#: [id number] Acct: [id number] Name: BEBETO ALICEA Rep #: [id number] : 1975 M 49 From: Zen Hodges MD PCP: Dr. Eric Valle DO Status: REG ER Study: Hand Min 3 Views Date of Exam: 06/29/24 Exam# [id number] Ordering Dr: Jace Hodges DO EXAM: XR Right Hand Complete, 3 or More Views CLINICAL INDICATION: TECHNIQUE: Frontal, lateral and oblique views of the right hand. COMPARISON: No relevant prior studies available. FINDINGS: BONES/JOINTS: See below. SOFT TISSUES: Soft tissue swelling without acute fracture. No radiopaque foreign body. RAD/Hand Min 3 Views IMPRESSION: 1. Soft tissue swelling without acute fracture. 2. If symptoms persist, repeat radiograph in 7-10 days recommended. Reading Location[facility] CC: Dr. Eric Valle DO; Dr. Jace Hodges DO 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: Signed Normal [facility] Wrist min 3 Viewson 06-29-19 Wrist min 3 Views [facility] Services [address] [place], [place] [address] Wrist min 3 Views MR#: [id number] Acct: [id number] Name: BEBETO ALICEA Rep #: [id number] : 1975 M 49 From: Zen Hodges MD PCP: Dr. Eric Valle DO Status: REG ER Study: Wrist min 3 Views Date of Exam: 06/29/24 Exam# [id number] Ordering Dr: Jace Hodges DO EXAM: XR Right Wrist Complete, 3 or More Views CLINICAL INDICATION: TECHNIQUE: Frontal, lateral and oblique views of the right wrist. COMPARISON: No relevant prior studies available. FINDINGS: BONES/JOINTS: See below. SOFT TISSUES: Soft tissue swelling without acute fracture. No radiopaque foreign body. RAD/Wrist min 3 Views IMPRESSION: 1. Soft tissue swelling without acute fracture. 2. If symptoms persist, repeat radiograph in 7-10 days recommended. Reading Location: [facility] CC: Dr. Eric Valle DO; Dr. Jace Hodges DO 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: Signed Normal [facility] Culture, Blood (WB)on 2023 CUB Blood cultures x2 fr om two different sites No growth in 5 days. Normal [facility] Comment on above: Performed By: #### M 200.1000 ####[facility] [address] [facility]. [place], [place], [address] Wound Cultureon 03-02-2024 WC Copy of report sent to Infection Control Printer [id number] 03/02/24 0801 ANTHONY. Meth. resistant Staph. aureus Amount Growth Rare mecA Testing not performed Meth. resistant Staph. aureus: REACTION cefOXitin Susc Islt POS Doxycycline Islt ELDA <=0.5 Clindamycin.induced Susc Islt NEG Erythromycin Islt ELDA >=8 R Gentamicin Islt ELDA <=0.5 S Linezolid Islt ELDA 2 S Oxacillin Susc Islt >=4 R Tetracycline Islt ELDA <=1 S TMP SMX Islt ELDA <=10 S Vancomycin Islt ELDA <=0.5 S Normal [facility] Comment on above: Performed By: #### M 100.2000, M100.3000 #### [facility] [address] [place], [address] Basic Metabolic Profile (BMP )on 03-01-2024 BUN/CRE 10.8 RATIO Normal 10-20 [facility] Comment on above: Performed By: #### L 100.0100, L500.2500 ####[facility] [address] [place], [address] CA,Total 9.0 mg/dL Normal 8.5-10.1 [facility] Comment on above: Performed By: #### L 100.0100, L500.2500 ####[facility] [address] [place], [address] Chloride [Moles/Vol] 108 mmol/L High 98-107 [facility] Comment on above: Performed By: #### L 100.0100, L500.2500 ####[facility] [address] [place], [address] CO2 [Moles/Vol] 24.0 mmol/L Normal 21.0-32.0 [facility] Comment on above: Performed By: #### L 100.0100, L500.2500 ####[facility] [address] [place], [address] Creatinine [Mass/Vol] 0.92 mg/dL Normal 0.70-1.30 [facility] Comment on above: Result Comment: The validity of the calculated GFR GFRAA in patients over 70 years has not been determined. Clinical correlation is essential. Performed By: #### L 100.0100, L500.2500 ####[facility] [address] [place], [address] ECRCL 146.66 ml/min Normal [facility] Comment on above: Performed By: #### L 100.0100, L500.2500 ####[facility] [address] [place], [address] EST GFR - AA 113 mL/min Normal >60 [facility] Comment on above: Result Comment: Afri can Icelandic GFR Calc Performed By: #### L 100.0100, L500.2500 ####[facility] [address] [place], [address] GAP 8 Normal 5-15 [facility] Comment on above: Performed By: #### L 100.0100, L500.2500 ####[facility] [address] [place], [address] GFR/1.73 sq M.predicted among non-blacks MDRD (S/P/Bld) [Vol rate/Area] 93 mL/min/{1.73_m2} Normal >60 [facility] Comment on above: Result Comment: Non- GFR Calc Performed By: #### L 100.0100, L500.2500 ####[facility] [address] [place], [address] Glucose [Mass/Vol] 124 mg/dL High 74-106 [facility] Comment on above: Result Comment: Fast ing Glucose result from 100 to 125 mg/dL suggests IMPAIRED HOMEOSTASIS per A.D.A. criteria. Performed By: #### L 100.0100, L500.2500 ####[facility] [address] [place], [address] Potassium [Moles/Vol] 3.6 mmol/L Normal 3.5-5.1 [facility] Comment on above: Performed By: #### L 100.0100, L500.2500 ####[facility] [address] [place], [address] Sodium [Moles/Vol] 139 mmol/L Normal 136-145 [facility] Comment on above: Performed By: #### L 100.0100, L500.2500 ####[facility] [address] [place], [address] Urea nitrogen [Mass/Vol] 10 mg/dL Normal 7-18 [facility] Comment on above: Performed By: #### L 100.0100, L500.2500 ####[facility] [address] [place], [address] CBC W/Diff, Automatedon 10-0 8-2024 Absolute Lymph 2.03 X10 3/uL Normal 0.83-4.51 [facility] Comment on above: Performed By: #### L 100.0100, L500.2500 ####[facility] [address] [place], [address] Absolute Neut 8.6 X10 3/uL High 2.0-7.7 [facility] Comment on above: Performed By: #### L 100.0100, L500.2500 ####[facility] [address] [place], [address] Basophils/100 WBC (Bld) 0.2 % Normal 0-1 [facility] Comment on above: Performed By: #### L 100.0100, L500.2500 ####[facility] [address] [place], [address] Eosinophils/100 WBC (Bld) 1.1 % Normal 0-5 [facility] Comment on above: Performed By: #### L 100.0100, L500.2500 ####[facility] [address] [place], [address] Erythrocyte distribution width (RBC) [Ratio] 13.4 % Normal 11.6-14.6 [facility] Comment on above: Performed By: #### L 100.0100, L500.2500 ####[facility] [address] [place], [address] Hematocrit (Bld) [Volume fraction] 45.6 % Normal 40-54 [facility] Comment on above: Performed By: #### L 100.0100, L500.2500 ####[facility] [address] [place], [address] Hemoglobin (Bld) [Mass/Vol] 14.6 g/dL Normal 13.0-16.5 [facility] Comment on above: Performed By: #### L 100.0100, L500.2500 ####[facility] [address] [place], [address] IG% 0.400 Normal 0.0-0.9 [facility] Comment on above: Result Comment: IG% - Immature Granulocytes (promyelocytes, myelocytes and metamyelocytes) > 1% indicates that a LEFT SHIFT is Present. Performed By: #### L 100.0100, L500.2500 ####[facility] [address] [place], [address] Lymphocytes/100 WBC (Bld) 16.7 % Low 19-41 [facility] Comment on above: Performed By: #### L 100.0100, L500.2500 ####[facility] [address] [place], [address] MCH (RBC) [Entitic mass] 26.5 pg Low 27.0-32.0 [facility] Comment on above: Performed By: #### L 100.0100, L500.2500 ####[facility] [address] [place], [address] MCHC (RBC) [Mass/Vol] 32.0 g/dL Normal 32-36 [facility] Comment on above: Performed By: #### L 100.0100, L500.2500 ####[facility] [address] [place], [address] MCV (RBC) [Entitic vol] 82.8 fL Normal 80-94 [facility] Comment on above: Performed By: #### L 100.0100, L500.2500 ####[facility] [address] [place], [address] Monocytes/100 WBC (Bld) 11.3 % High 0-10 [facility] Comment on above: Performed By: #### L 100.0100, L500.2500 ####[facility] [address] [place], [address] Neutrophils/100 WBC (Bld) 70.3 % High 47-70 [facility] Comment on above: Performed By: #### L 100.0100, L500.2500 ####[facility] [address] [place], [address] Nucleated RBC (Bld) [#/Vol] 0 10*3/uL Normal 0-5 [facility] Comment on above: Performed By: #### L 100.0100, L500.2500 ####[facility] [address] [place], [address] Platelet mean volume (Bld) [Entitic vol] 10.2 fL Normal 6.2-12.0 [facility] Comment on above: Performed By: #### L 100.0100, L500.2500 ####[facility] [address] [place], [address] Platelets (Bld) [#/Vol] 222 10*3/uL Normal 150-450 [facility] Comment on above: Performed By: #### L 100.0100, L500.2500 ####[facility] [address] [place], [address] RBC (Bld) [#/Vol] 5.51 10*6/uL Normal 4.6-6.2 [facility] Comment on above: Performed By: #### L 100.0100, L500.2500 ####[facility] [address] [place], [address] RDW SD 40.7 fl Normal 35.1-43.9 [facility] Comment on above: Performed By: #### L 100.0100, L500.2500 ####[facility] [address] [place], [address] WBC (Bld) [#/Vol] 12.2 10*3/uL High 4.4-11.0 [facility] Comment on above: Performed By: #### L 100.0100, L500.2500 ####[facility] [address] [place], [address] Discharge Instructionon 10-0 Discharge Instruction [facility] Medical Records Department [address] [place] [address] Instructions for Home/Discharge Instructions 03/01/24 0933 MR#: [id number] Acct: [id number] Name: BEBETO ALICEA Rep #: [id number] : 1975 48 From: Davonte Winkler MD PCP: Dr. Eric Valle, DO Status:ADM DAVID Discharge Instructions Diet Discharge Diet: Low fat / Low cholesterol Activity Discharge Activity: Return to Normal Activity Dressing / Incision Call your doctor if you observe: Fever of 101 or Higher, Shortness of breath, Dizziness, Fainting spells, Swelling in the ankles, Chest pain and Increased palpitations (irregular heartbeat) Follow Up Care Test Results: Test results from this visit will be discussed in further detail at your follow-up appointment, if applicable. Discharge Plan Admission Admit Date/Time: 02/29/24 12:46 Attending Provider: Davonte Winkler Primary Care Provider: Eric Valle Discharge Orders/Prescriptions Prescriptions: New amlodipine 10 mg Tablet 10 mg PO DAILY 30 Days Qty: 30 0RF doxycycline monohydrate 100 mg capsule 100 mg PO BID Qty: 20 0RF Continued bupropion HCl 150 MG tablet extended release 24 hr 150 mg PO DAILY estradiol 2 mg tablet 2 mg PO DAILY omeprazole 20 mg capsule,delayed release(DR/EC) 20 mg PO DAILY Referrals / Follow Up: Eric Valle DO [Primary Care Provider] - Within 1 Week Disposition Disposition (needs filled in before D/C Order can be placed): Home, Self Care 03/01/24 0937 Davonte Winkler MD CC: Dr. Eric Valle DO Signed Normal [facility] [facility] Vancomycin, Trough Levelon VANCO, TROUGH 14.6 ug/mL Normal 5.0-15.0 [facility] Comment on above: Order Comment: Comme nts: Trough to be drawn 30 mins prior to scheduled [id number] Result Comment: VANC OMYCIN STANDARED DRUG THERAPY TROUGH LEVEL: 5.0 - 15.0 mg/L VANCOMYCIN HIGH INTENSITY THERAPY TROUGH LEVEL: 15.0 - 20.0 mg/L High Intensity therapy recommended for serious life threatening infections include: - Meningitis -Endocarditis -Pneumonia (Ventilator/Healtcare Associated) -Sepsis PLEASE CONTACT PHARMACY SERVICES (#[id number]) FOR INTERPRETATION OF RESULTS. Performed By: #### L 501.8820 ####[facility] [address] [place], [address] Basic Metabolic Profile (BMP )on 02-29-2024 BUN/CRE 15.1 RATIO Normal - [facility] Comment on above: Performed By: #### L 100.0100, L500.2500, L503.6005 #### [facility] [address] [place], [address] CA,Total 9.3 mg/dL Normal 8.5-10.1 [facility] Comment on above: Performed By: #### L 100.0100, L500.2500, L503.6005 #### [facility] [address] [place], [address] Chloride [Moles/Vol] 108 mmol/L High 98-107 [facility] Comment on above: Performed By: #### L 100.0100, L500.2500, L503.6005 #### [facility] [address] [place], [address] CO2 [Moles/Vol] 25.0 mmol/L Normal 21.0-32.0 [facility] Comment on above: Performed By: #### L 100.0100, L500.2500, L503.6005 #### [facility] [address] [place], [address] Creatinine [Mass/Vol] 0.93 mg/dL Normal 0.70-1.30 [facility] Comment on above: Result Comment: The validity of the calculated GFR GFRAA in patients over 70 years has not been determined. Clinical correlation is essential. Performed By: #### L 100.0100, L500.2500, L503.6005 #### [facility] [address] [place], [address] ECRCL 145.21 ml/min Normal [facility] Comment on above: Performed By: #### L 100.0100, L500.2500, L503.6005 #### [facility] [address] [place], [address] EST GFR - AA 112 mL/min Normal >60 [facility] Comment on above: Result Comment: Afri can Icelandic GFR Calc Performed By: #### L 100.0100, L500.2500, L503.6005 #### [facility] [address] [place], [address] GAP 5 Normal 5-15 [facility] Comment on above: Performed By: #### L 100.0100, L500.2500, L503.6005 #### [facility] [address] [place], [address] GFR/1.73 sq M.predicted among non-blacks MDRD (S/P/Bld) [Vol rate/Area] 93 mL/min/{1.73_m2} Normal >60 [facility] Comment on above: Result Comment: Non- GFR Calc Performed By: #### L 100.0100, L500.2500, L503.6005 #### [facility] [address] [place], [address] Glucose [Mass/Vol] 109 mg/dL High 74-106 [facility] Comment on above: Result Comment: Fast ing Glucose result from 100 to 125 mg/dL suggests IMPAIRED HOMEOSTASIS per A.D.A. criteria. Performed By: #### L 100.0100, L500.2500, L503.6005 #### [facility] [address] [place], [address] Potassium [Moles/Vol] 3.7 mmol/L Normal 3.5-5.1 [facility] Comment on above: Performed By: #### L 100.0100, L500.2500, L503.6005 #### [facility] [address] [place], [address] Sodium [Moles/Vol] 137 mmol/L Normal 136-145 [facility] Comment on above: Performed By: #### L 100.0100, L500.2500, L503.6005 #### [facility] [address] [place], [address] Urea nitrogen [Mass/Vol] 14 mg/dL Normal 7-18 [facility] Comment on above: Performed By: #### L 100.0100, L500.2500, L503.6005 #### [facility] [address] [place], [address] CBC W/Diff, Automatedon 10-0 Absolute Lymph 2.17 X10 3/uL Normal 0.83-4.51 [facility] Comment on above: Performed By: #### L 100.0100, L500.2500, L503.6005 #### [facility] [address] [place], [address] Absolute Neut 9.0 X10 3/uL High 2.0-7.7 [facility] Comment on above: Performed By: #### L 100.0100, L500.2500, L503.6005 #### [facility] [address] [place], [address] Basophils/100 WBC (Bld) 0.5 % Normal 0-1 [facility] Comment on above: Performed By: #### L 100.0100, L500.2500, L503.6005 #### [facility] [address] [place] [place], [address] Eosinophils/100 WBC (Bld) 0.7 % Normal 0-5 [facility] Comment on above: Performed By: #### L 100.0100, L500.2500, L503.6005 #### [facility] [address] [place], [address] Erythrocyte distribution width (RBC) [Ratio] 13.4 % Normal 11.6-14.6 [facility] Comment on above: Performed By: #### L 100.0100, L500.2500, L503.6005 #### [facility] [address] [place], [address] Hematocrit (Bld) [Volume fraction] 45.7 % Normal 40-54 [facility] Comment on above: Performed By: #### L 100.0100, L500.2500, L503.6005 #### [facility] [address] [place], [address] Hemoglobin (Bld) [Mass/Vol] 14.7 g/dL Normal 13.0-16.5 [facility] Comment on above: Performed By: #### L 100.0100, L500.2500, L503.6005 #### [facility] [address] [place], [address] IG% 0.400 Normal 0.0-0.9 [facility] Comment on above: Result Comment: IG% - Immature Granulocytes (promyelocytes, myelocytes and metamyelocytes) > 1% indicates that a LEFT SHIFT is Present. Performed By: #### L 100.0100, L500.2500, L503.6005 #### [facility] [address] [place], [address] Lymphocytes/100 WBC (Bld) 17.0 % Low 19-41 [facility] Comment on above: Performed By: #### L 100.0100, L500.2500, L503.6005 #### [facility] [address] [place], [address] MCH (RBC) [Entitic mass] 26.4 pg Low 27.0-32.0 [facility] Comment on above: Performed By: #### L 100.0100, L500.2500, L503.6005 #### [facility] [address] [place], [address] MCHC (RBC) [Mass/Vol] 32.2 g/dL Normal 32-36 [facility] Comment on above: Performed By: #### L 100.0100, L500.2500, L503.6005 #### [facility] [address] [place], [address] MCV (RBC) [Entitic vol] 82.0 fL Normal 80-94 [facility] Comment on above: Performed By: #### L 100.0100, L500.2500, L503.6005 #### [facility] [address] [place], [address] Monocytes/100 WBC (Bld) 10.8 % High 0-10 [facility] Comment on above: Performed By: #### L 100.0100, L500.2500, L503.6005 #### [facility] [address] [place], [address] Neutrophils/100 WBC (Bld) 70.6 % High 47-70 [facility] Comment on above: Performed By: #### L 100.0100, L500.2500, L503.6005 #### [facility] [address] [place], [address] Nucleated RBC (Bld) [#/Vol] 0 10*3/uL Normal 0-5 [facility] Comment on above: Performed By: #### L 100.0100, L500.2500, L503.6005 #### [facility] [address] [place], [address] Platelet mean volume (Bld) [Entitic vol] 10.3 fL Normal 6.2-12.0 [facility] Comment on above: Performed By: #### L 100.0100, L500.2500, L503.6005 #### [facility] [address] [place], [address] Platelets (Bld) [#/Vol] 227 10*3/uL Normal 150-450 [facility] Comment on above: Performed By: #### L 100.0100, L500.2500, L503.6005 #### [facility] [address] [place], [address] RBC (Bld) [#/Vol] 5.57 10*6/uL Normal 4.6-6.2 [facility] Comment on above: Performed By: #### L 100.0100, L500.2500, L503.6005 #### [facility] [address] [place], [address] RDW SD 39.8 fl Normal 35.1-43.9 [facility] Comment on above: Performed By: #### L 100.0100, L500.2500, L503.6005 #### [facility] [address] [place], [address] WBC (Bld) [#/Vol] 12.7 10*3/uL High 4.4-11.0 [facility] Comment on above: Performed By: #### L 100.0100, L500.2500, L503.6005 #### [facility] [address] [place], [address] Emergency Department Summary on 02-29-2024 Emergency Department Summary [facility] Medical Records Department [address] [place] [address] Emergency Department Summary 02/29/24 MR#: [id number] Acct: [id number] Name: BEBETO ALICEA Rep #: [id number] : 1975 48 From: Marin Chen DO PCP: Dr. Eric Valle DO Status:ADM DAVID Location: [place] [address] Patient was seen and examined with nurse practitioner Serge All components of the history and physical confirmed and agreed. 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 States that about a week ago he was pressure washing trash cans when the shaker washer hit his left arm. He states that over the weekend it started to get red and swollen and noted that today there was some bubbling so therefore he use a supervisor mattress and boxsprings to attempt to open this up. He states that when he made the cut that there was some blood and white discharge noted. Patient states that he has having pain which is getting worse which is prompted him here further evaluation management. He states that he is unsure when his last tetanus shot was. Review of systems: Agree with above Physical exam: Agree with above will add to extremities that the patient was able to give me the okay sign thumbs up and oppose his thumb to his pinky bilaterally. Radial pulses +2/4 in the bilateral upper extremities. [facility] Patient is a 48-year-old male who presents to the emergency department with a chief complaint of left upper extremity pain and redness after a injury with a shaker washer. Patient will have workup performed here on the differential diagnosis includes but not limited to cellulitis, necrotizing fasciitis, abscess. Once workup is obtained reviewed he will be reevaluated. Patient's CBC reviewed showed a white cell count of 12,000, hemoglobin stable 14.7, platelet count normal at 227. Patient sodium normal 137, potassium normal 3.7, creatinine normal at 0.93. Patient lactic acid normal at 1.1. Patient's x-ray was reviewed and independently interpreted myself as well as radiology which showed soft tissue swelling findings suggestive of an old avulsion fracture of the ulnar styloid. No gas noted. Patient was given vancomycin and Zosyn. At this point time do believe the patient will require admission to the hospital for his left forearm cellulitis as he is borderline diabetic and he has significant swelling and redness in this area. This practitioner Serge did discuss case with hospitalist who accept the patient for admission. Patient was notified with all question concerns answered bedside is agreeable to plan Final impression: Left forearm cellulitis shaker washer injury Disposition: Patient will be admitted for further evaluation management Supervising attending attestation: Marin ZUÑIGA History of Present Illness Chief Complaint: Wound Narrative Narrative: Patient is a 48-year-old male with history of anxiety, blindness of the right eye, obesity, hypertension who presents to the emergency department for a left wrist swelling, redness. Patient states 1 week ago, he was pressure washing a trash can while holding it in caught his left wrist. Patient states it then began to be red and swollen, today, he noticed that there was a bubble, so he used a supervisor mattress and boxsprings to cut it. Pay states there was some blood and some white drainage. Pay states the pain and swelling is getting worse, he is here for evaluation. Tetanus vaccination unknown. [facility] Medical History (Updated 02/29/24 @ 12:42 by SHREYA Hernández) Hypertension Hypercholesterolemia Depression Arthritis History of eye injury Home Medications ???Medication ???Instructions ???Recorded ???Last Taken ???Type bupropion HCl 150 mg 24 hr tablet, 150 mg PO DAILY DEPRESSION 06/29/19 Unknown History extended release estradiol 2 mg tablet 2 mg PO DAILY 10/12/20 Unknown History omeprazole 20 mg capsule,delayed 20 mg PO DAILY GERD 02/29/24 Unknown History release Allergy/AdvReac Type Severity Reaction Status Date / Time No Known Allergies Allergy Verified 02/29/24 11:02 Surgical History History of facial surgery History of carpal tunnel release Social History Smoking Status: Former smoker ROS ROS ED ROS Narrative Constitutional: Negative for fever, chills, weight loss, weakness Eyes: Negative for vision loss, vision change, double vision ENT: Negative for any sore throat, ear pain, congestion Cardiovascular: Negative for any chest pain, tightness, pal (more content not included)... Normal [facility] Forearm 2 Viewson 02-29-2024 Forearm 2 Views [facility] Imaging Services [address], [place] [address] Forearm 2 Views MR#: [id number] Acct: [id number] Name: BEBETO ALICEA Rep #: [id number] : 1975 M 48 From: Nate landeros MD PCP: Dr. Eric Valle DO Status: REG ER Study: Forearm 2 Views Date of Exam: 02/29/24 Exam# [id number] Ordering Dr: Serge Guerrero SEMICONDUCTOR TECHNICIAN-C [id number] STUDY: X-RAY - LEFT RADIUS AND ULNA REASON FOR EXAM: Male, 48 years old. Cellulitis TECHNIQUE: 2 view(s) of the forearm. COMPARISON: None. FINDINGS: Soft tissue swelling Normal visualized radius. Findings suggestive of an old avulsion fracture of the ulnar styloid. RAD/Forearm 2 Views IMPRESSION: Soft tissue swelling. Electronically Signed: Nate Worthy MD at 12:15 EDT , CC: SHREYA Guerrero; Dr. Eric Valle, 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: Signed Normal [facility] Gram Stainon 02-29-2024 GS Gram Stain No organisms seen No cells seen Normal [facility] Comment on above: Performed By: #### M 100.2000, M100.3000 #### [facility] Laboratory [address] [place], [address] H AND P Exam - [facility] 02-29-2024 H&P Exam - Hospitalist [facility] Medical Records Department [address] [place] [address] H P Exam - Hospitalist 02/29/24 1819 MR#: [id number] Acct: [id number] Name: BEBETO ALICEA Rep #: [id number] : 1975 48 From: Davonte Winkler MD PCP: Dr. Eric Valle, Status:ADM DAVID Location: [facility] [place]220-7 HPI - General General Date of Admission: 02/29/24 HPI Narrative BEBETO ALICEA, is a 48 M who presents to the hospital for an abscess on his left breast. He states that a couple days ago he was pressure washing and cause some irritation on the inside of his left wrist but it seemed to be getting better until 2 days ago when he was at work and he was lifting all day and he noticed that he developed a little bit of an abscess that had gotten worse as the day went on. This morning he noticed that it was very tender and red so he cleaned it off with alcohol and cleaned off a supervisor mattress and boxsprings and cut into the abscess a little bit. He noticed purulent white material as well as cyst serosanguineous fluid that came out. He presented to the ER and no more fluid could be expressed we did attempt a wound culture though. White count is little bit elevated at 12.7 but no signs of sepsis. He was started on vancomycin and Zosyn in the ER. [facility] Medical History (Updated 02/29/24 @ 12:42 by SHREYA Hernández) Hypertension Hypercholesterolemia Depression Arthritis History of eye injury Home Medications ???Medication ???Instructions ???Recorded ???Last Taken ???Type bupropion HCl 150 mg 24 hr tablet, 150 mg PO DAILY DEPRESSION 06/29/19 Unknown History extended release estradiol 2 mg tablet 2 mg PO DAILY 10/12/20 Unknown History omeprazole 20 mg capsule,delayed 20 mg PO DAILY GERD 02/29/24 Unknown History release Allergy/AdvReac Type Severity Reaction Status Date / Time No Known Allergies Allergy Verified 02/29/24 11:02 Family History (Updated 02/29/24 @ 18:[address] Davonte Winkler MD) Other Heart disease Kidney disease Surgical History History of facial surgery History of carpal tunnel release Social History Smoking Status: Former smoker ROS Constitutional Constitutional: Denies chills, fatigue, fever(s) or malaise Eyes Eyes: Denies blurry vision ENT HEENT: Denies headache(s) or nasal discharge Cardiovascular Cardiovascular: Denies chest pain, dyspnea on exertion or syncope Respiratory/Chest Respiratory/Chest: Denies cough, shortness of breath at rest or shortness of breath with exertion Gastrointestinal Gastrointestinal: Denies constipation, diarrhea, nausea or vomiting Genitourinary Genitourinary: Denies dysuria Integumentary Integumentary: Reports wounds Neurologic Neurologic: Denies focal weakness, numbness or tremor(s) Psychiatric Psychiatric: Denies anxiety or depression Vital Signs Vital Signs Vital Signs: 02/29/24 11:00 02/29/24 12:02 02/29/24 13:00 Temperature 98.3 F 98.7 F 97.8 F Temperature Source Temporal Oral Oral Pulse Rate 107 H 100 76 Respiratory Rate 18 18 18 Blood Pressure 177/117 H 170/98 H 186/121 H Blood Pressure Mean 137 122 142 Blood Pressure Source Blood Pressure Position Blood Pressure Location Pulse Ox 98 99 98 Oxygen Delivery Method Room Air Room Air Room Air 02/29/24 13:20 02/29/24 14:20 02/29/24 14:40 Temperature 97.8 F 98.5 F Temperature Source Oral Pulse Rate 76 76 86 Respiratory Rate 18 17 Blood Pressure 186/121 H 154/105 H Blood Pressure Mean 142 121 Blood Pressure Source Monitor Blood Pressure Position Semi-Fowlers Blood Pressure Location Left Arm Pulse Ox 98 98 Oxygen Delivery Method Room Air Room Air Weight Weight: 313 lb Body Mass Index (BMI) 42.4 Physical Exam Narrative General: Alert, Oriented x3, Cooperative, No apparent distress HEENT: Atraumatic, right eye trauma, normocephalic Oral: Moist Mucosa Neck: Supple, No JVD Lungs: Diminished, Normal air movement, No rhonchi, No wheeze, No rales Cardiovascular: Regular rate, Regular Rhythm, Normal S1, Normal S2, No murmurs Abdomen: Soft, Non Tender, Non-Distended, No Hepato-splenomegaly Extremities: No edema, Capillary Refill Less than 3 Seconds Skin: Left wrist wound, dressing in place states redness is improved Musculoskeletal: No Tenderness to Palpation of Joints or Extremities Neurological: No focal neurological deficits, Motor Exam 5/5 strength throughout, Sensory exam intact to light touch and pain Psych/Mental Status: Normal Affect, Appropriate Results Lab / Micro Data 02/29/24 11:15 02/29/24 11:15 Labs: Laboratory Results - last 24 hr 02/29/24 11:15: WBC 12.7 H, RBC 5.57, Hgb 14.7, Hct 45.7, MCV 8 (more content not included)... Normal [facility] Lactic Acidon 02-29-2024 Lactate [Moles/Vol] 1.1 mmol/L Normal 0.4-1.9 [facility] Comment on above: Order Comment: Y Performed By: #### L 100.0100, L500.2500, L503.6005 ####[facility] [id number] [facility] [place], [address] Wrist min 3 Viewson 02-29-20 24 Wrist min 3 Views [facility] Imaging Services [address] [place], [place] [address] Wrist min 3 Views MR#: [id number] Acct: [id number] Name: BEBETO ALICEA Rep #: [id number] : 1975 M 48 From: Nate landeros MD PCP: Dr. Eric Valle, DO Status: [facility] ER Study: Wrist min 3 Views Date of Exam: 02/29/24 Exam# [id number] Ordering Dr: Serge Guerrero [id number] STUDY: X-RAY - LEFT WRIST REASON FOR EXAM: Male, 48 years old. Swelling TECHNIQUE: 3 view(s) of the wrist were obtained. COMPARISON: None. FINDINGS: Normal visualized distal radius and ulna. Findings suggestive of an old avulsion fracture of the ulnar styloid. Normal radiocarpal articulation. Normal distal radioulnar articulation. Normal carpal bones. Normal carpal articulations. Normal carpometacarpal articulation of the thumb. Normal second through fifth carpometacarpal articulations. Normal visualized metacarpal bones. Soft tissue swelling. RAD/Wrist min 3 Views IMPRESSION: Soft tissue swelling. Findings suggestive of an old avulsion fracture of the ulnar styloid. Electronically Signed: Nate Worthy MD at 12:15 EDT , CC: SHREYA Guerrero; Dr. Eric Valle DO 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: [facility]igned [facility] Office Visit (UCWSTR ) BEBETO ALICEA ([id number]) 1975 M Date Time Provider Department 05/28/22 3:15 PM [facility] During your visit today, we recorded the following information about you: Temperature Pulse Respiration Blood pressure 98.6 degrees 95/minute 21/minute 152/92 Weight 146.3 kg Quiana Salter PA-C 05/28/2022 4:40 PM Signed Subjective HPI HPI Bebeto Alicea is a 47 year old male who presents today for CC of L ankle pain x 3-4 weeks. Notes that it is radiating down into foot. Worse with bearing weight. It feels like a sharp nerve pain. History of sprain in the past but no recent mechanism of injury. 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 Pt has tried nothing OTC. BP 152/92 Pulse 95 Temp 37 ?C (98.6 ?F) Resp 21 Wt (!) 146.3 kg (322 lb 9.6 oz) SpO2 98% BMI 46.29 kg/m? ALLERGIES No Known Allergies ACTIVE PROBLEM LIST Sprain of Ankle, Unspecified Site Enthesopathy of Unspecified Site Allergic Rhinitis, Cause Unspecified Screening for Unspecified Condition Lumbago Obesity (Bmi 30-39.9) Sexual and Gender Identity Disorders Depression Learning Disability TYSON (obstructive sleep apnea) AHI 11.7 HST Shingles Carpal Tunnel Syndrome On Left Carpal Tunnel Syndrome On Right Family History Problem Relation Age of Onset Hypertension Mother Coronary Artery Disease Mother Genetic Paternal Grandfather Hypertension Brother Genetic Daughter Social History Tobacco Use Smoking status: Former Types: Cigarettes Quit date: 09/28/2005 Years since quittin.6 Smokeless tobacco: Never Substance Use Topics Alcohol use: Yes Alcohol/week: 2.5 standard drinks Types: 1 Glasses of Wine (5oz) per week Drug use: No Review of Systems Constitutional: Negative for chills, fever and malaise/fatigue. Musculoskeletal: Positive for joint pain. Negative for falls. Skin: Negative for rash. Objective BP 152/92 Pulse 95 Temp 37 ?C (98.6 ?F) Resp 21 Wt (!) 146.3 kg (322 lb 9.6 oz) SpO2 98% BMI 46.29 kg/m? Physical Exam Cardiovascular: Pulses: Dorsalis pedis pulses are 2+ on the left side. Posterior tibial pulses are 2+ on the left side. Musculoskeletal: Feet: Feet: Comments: Edema and tenderness primarily overlying lateral malleolus. TTP dorsal foot in area as outlined. Skin: Comments: Excoriations noted on L anterior westfall, superior to area of concern ASSESSMENT/PLAN: 1. Acute left ankle pain - ICD9: 719.47, ICD10: M25.572 (primary diagnosis) Unclear etiology. XR ordered to further evaluate. RICE therapy advised. Pain control addressed (will trial on rx strength anti-inflammatory); also discussed alternative for topical application with diclofenac/voltaren gel OTC. Podiatry referral placed for further evaluation and management. - XR ANKLE GENERAL 3V AP/LAT/OBL LEFT 2. Foot pain, left - ICD9: 729.5, ICD10: M79.672 See above - XR FOOT GENERAL 3V AP/LAT/OBL LEFT Pt advised to see PCP if symptoms persist or progress. Reviewed red flags with patient and when to seek care sooner. The patient indicates understanding of these issues and agrees with the plan. MICHAEL Padilla PA-C 05/28/2022 4:21 PM Signed R.I.C.E. The general care of your injury includes the following: Resting, Icing, Compressing and Elevating the injured area. Remember this as RICE. REST: Limit the use of the injured body part. ICE: By applying ice to the affected area, swelling and pain can be reduced. Place some ice cubes in a re-sealable (Ziploc) bag and add some water. Put a thin washcloth between the bag and your skin. Apply the ice bag to the area for at least 20 minutes. Do this at least 4 times per day. Using the ice for longer times and more frequently is OK. NEVER APPLY ICE DIRECTLY TO THE SKIN. COMPRESS: Compression means to apply pressure around the injured area such as with a splint, cast or an sergio bandage. Compression decreases swelling and improves comfort. Compression should be tight enough to relieve swelling but not so tight as to decrease circulation. Increasing pain, numbness, tingling, or change in skin color, are all signs of decreased circulation. ELEVATE: Elevate the injured part. For example, elevate your foot by placing it on a chair while sitting, or propping it up on pillows when lying down. Allergies As of Date: 05/28/2022 (No Known Allergies) Date Reviewed: 05/28/2022 Reviewed by: Ercia Woodward MA - Fully Assessed Reason for Visit: Pain (foot) [760] Cmt: Sharp aches in feet, left more than right x 3 or 4 weeks Primary Visit Diagnosis:Acute left ankle pain [M25.572] Other Visit Diagnosis:Foot pain, left [M79.672] Order(s):XR ANKLE GENERAL 3V AP/LAT/OBL LEFT [[id number]] Order #: [id number]. #:[id number] (more content not included)... Normal [facility] No Panel Informationon 05-28 IMPRESSION: No acute bony finding. 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: [facility] Transcribe Date/Time: May 28 2022 4:35P Dictated by : ZEN GUTIERREZ MD This examination was interpreted and the report reviewed and electronically signed by: ZEN GUTIERREZ MD on May 28 2022 4:37PM EST DIVISION OF RADIOLOGY Radiology Study observation (narrative) Jamie [facility] No Panel InformationOrdered By: [facility] Provider on 05-28-2022 [facility] XR ANKLE 3V AP/LAT/OBL LTon 05-28-2022 XR ANKLE 3V AP/LAT/OBL LT * * *Final Report* * * DATE OF EXAM: May 28 2022 4:32PM WOX 5298 - XR ANKLE 3V AP/LAT/OBL LT / PROCEDURE REASON: Acute left ankle pain * * * * Physician Interpretation * * * * Left ankle and foot HISTORY: 47 years old Clinical information: Acute left ankle pain Anterior left ankle pain and dorsal left mid and forefoot pain x 3-4 weeks without injury TECHNIQUE: Images: XR ANKLE 3V AP/LAT/OBL LT, XR FOOT 3V AP/LAT/OBL LT Comparison: None. RESULT: Findings: No fracture or bone destruction. There is mild spurring of the articulation of lateral malleolus and talus. Joint spaces otherwise maintained. IMPRESSION: No acute bony finding. 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: [employer] Transcribe Date/Time: May 28 2022 4:35P Dictated by : ZEN GUTIERREZ MD This examination was interpreted and the report reviewed and electronically signed by: ZEN GUTIERREZ MD on May 28 2022 4:37PM EST [id number] Normal [facility] XR Ankle - left AP and Later al and obliqueon 05-28-2022 * * *Final Report* * * DATE OF EXAM: May 28 2022 4:32PM WOX 5298 - XR ANKLE 3V AP/LAT/OBL LT / PROCEDURE REASON: Acute left ankle pain * * * * Physician Interpretation * * * * Left ankle and foot HISTORY: 47 years old Clinical information: Acute left ankle pain Anterior left ankle pain and dorsal left mid and forefoot pain x 3-4 weeks without injury TECHNIQUE: Images: XR ANKLE 3V AP/LAT/OBL LT, XR FOOT 3V AP/LAT/OBL LT Comparison: None. RESULT: Findings: No fracture or bone destruction. There is mild spurring of the articulation of lateral malleolus and talus. Joint spaces otherwise maintained. DIVISION OF RADIOLOGY Provider, [facility] - 05/28/2022 * * *Final Report* * * DATE OF EXAM: May 28 2022 4:32PM WOX 5298 - XR ANKLE 3V AP/LAT/OBL LT / PROCEDURE REASON: Acute left ankle pain * * * * Physician Interpretation * * * * Left ankle and foot HISTORY: 47 years old Clinical information: Acute left ankle pain Anterior left ankle pain and dorsal left mid and forefoot pain x 3-4 weeks without injury TECHNIQUE: Images: XR ANKLE 3V AP/LAT/OBL LT, XR FOOT 3V AP/LAT/OBL LT Comparison: None. RESULT: Findings: No fracture or bone destruction. There is mild spurring of the articulation of lateral malleolus and talus. Joint spaces otherwise maintained. IMPRESSION IMPRESSION: No acute bony finding. 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: [employer] Transcribe Date/Time: May 28 2022 4:35P Dictated by : ZEN GUTIERREZ MD This examination was interpreted and the report reviewed and electronically signed by: ZEN GUTIERREZ MD on May 28 2022 4:37PM [facility] XR FOOT 3V AP/LAT/OBL LTon 0 05-28-2022 XR FOOT 3V AP/LAT/OBL LT * * *Final Report* * * DATE OF EXAM: May 28 2022 4:32PM WOX 5336 - XR FOOT 3V AP/LAT/OBL LT / PROCEDURE REASON: Foot pain, left * * * * Physician Interpretation * * * * Left ankle and foot HISTORY: 47 years old Clinical information: Acute left ankle pain Anterior left ankle pain and dorsal left mid and forefoot pain x 3-4 weeks without injury TECHNIQUE: Images: XR ANKLE 3V AP/LAT/OBL LT, XR FOOT 3V AP/LAT/OBL LT Comparison: None. RESULT: Findings: No fracture or bone destruction. There is mild spurring of the articulation of lateral malleolus and talus. Joint spaces otherwise maintained. IMPRESSION: No acute bony finding. 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: [employer] Transcribe Date/Time: May 28 2022 4:35P Dictated by : ZEN GUTIERREZ MD This examination was interpreted and the report reviewed and electronically signed by: ZEN GUTIERREZ MD on May 28 2022 4:37PM EST [id number] Normal [facility] XR Foot - left AP and Latera l and obliqueon 05-28-2022 * * *Final Report* * * DATE OF EXAM: May 28 2022 4:32PM WOX 5336 - XR FOOT 3V AP/LAT/OBL LT / PROCEDURE REASON: Foot pain, left * * * * Physician Interpretation * * * * Left ankle and foot HISTORY: 47 years old Clinical information: Acute left ankle pain Anterior left ankle pain and dorsal left mid and forefoot pain x 3-4 weeks without injury TECHNIQUE: Images: XR ANKLE 3V AP/LAT/OBL LT, XR FOOT 3V AP/LAT/OBL LT Comparison: None. RESULT: Findings: No fracture or bone destruction. There is mild spurring of the articulation of lateral malleolus and talus. Joint spaces otherwise maintained. DIVISION OF RADIOLOGY Provider, [facility] - 05/28/2022 * * *Final Report* * * DATE OF EXAM: May 28 2022 4:32PM WOX 5336 - XR FOOT 3V AP/LAT/OBL LT / PROCEDURE REASON: Foot pain, left * * * * Physician Interpretation * * * * Left ankle and foot HISTORY: 47 years old Clinical information: Acute left ankle pain Anterior left ankle pain and dorsal left mid and forefoot pain x 3-4 weeks without injury TECHNIQUE: Images: XR ANKLE 3V AP/LAT/OBL LT, XR FOOT 3V AP/LAT/OBL LT Comparison: None. RESULT: Findings: No fracture or bone destruction. There is mild spurring of the articulation of lateral malleolus and talus. Joint spaces otherwise maintained. IMPRESSION IMPRESSION: No acute bony finding. 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: [employer] Transcribe Date/Time: May 28 2022 4:35P Dictated by : ZEN GUTIERREZ MD This examination was interpreted and the report reviewed and electronically signed by: ZEN GUTIERREZ MD on May 28 2022 4:37PM [facility] CNOVon 11-22-2021 CNOV Office Visit (FAMPWS ) BEBETO ALICEA ([id number]) 1975 M Date Time Provider Department 11/22/21 10:00 AM [facility] During your visit today, we recorded the following information about you: Pulse Respiration Blood pressure Weight 104/minute 18/minute 160/84 142.8 kg Mariama Voss APRN.OSTOMY RN 11/22/2021 12:46 PM Signed Chief Complaint Patient presents with: Edema: pt states swelling in stu feet. lft foot worse accross toes burning sensation. Worried about db was border line diabetic HPI Bebeto Alicea is a 46 year old male who presents here today for Above Complaints. Bebeto is an established patient of Dr. Marino DO. Bebeto is a new patient to me today. Concerns today.. Swelling: BLE swelling to feet x numerous months. Non-pitting per pt. Intermittent. Depends on the day. No known fall or injury to feet. Reports intermittent bilateral numbness/tingling, burning sensation, and pins and needle feeling to bilateral toes that radiate up foot to ankle around the same time swelling began. Denies pain worse at night or when feet elevated vs depedent. Symptoms occur throughout day. Denies any known hx of DM. Does not check blood sugars at home. Last HgA1c was 5.4. Reports noticing an increase in thirst and urination over the past few months. Does report dry mouth. Last routine blood work in 2019. Component Latest Ref Rng AND Units 08/08/2019 Hemoglobin A1C 4.3 - 5.6 % 5.4 Estimated Average Glucose mg/dL 108 Hx of gender dysphoria. Transitioning from male to female gender. Was getting care through endocrinology at [facility] but [facility] d/t cost and location being closer to home. Pt is in the process of finishing paperwork to have chart transferred to our facility. Does report starting on spironolactone and estradiol in the past few months due to this process. [facility] -- pt reports all normal. Weight gain: Gradually over the past 2 years. Trying to go on diet and lose weight but has not been successful. Riding bike frequently for exercise. Admits that he has not been eating healthy and having a lot of microwavable meals. Reports staying away from pop, junk food, and candy when able. Elevated BP: No known hx of HTN. No anti-hypertensive medication use. Denies any headaches, CP, SOB, lightheadedness, or dizziness. Does not check BP at home. Last 14 Encounter BP Readings: Date: BP: 11/22/2021 160/84 03/15/2021 119/81[bp zara average[ 04/06/2019 136/82 09/02/2017 125/86 06/24/2017 150/86 06/18/2017 121/83[auto[ 06/03/2017 130/86 03/11/2017 138/84 01/19/2017 130/88 11/19/2016 136/82 11/27/2015 120/60 10/17/2015 134/84 09/17/2015 118/62 08/28/2015 120/80 Past medical history, appointments, medications, allergies reviewed. 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 - Hypertriglyceridemia 12/2013 - Impaired fasting blood sugar 10/2015 - Low HDL (under 40) 12/2013 - Manic depression (HCC) - TYSON (obstructive sleep apnea) - Shingles 05/2017 Previous Surgical History PAST SURGICAL HISTORY Procedure Laterality Date - PAST SURGICAL HISTORY OF 10/29/10 right eye removal - REPAIR OF NASAL SEPTUM Septoplasty - REVISE MEDIAN N/CARPAL TUNNEL SURG Right 08/06/2017 Right carpal tunnel release Family History FAMILY HISTORY Problem Relation Age of Onset - Hypertension Mother - Coronary Artery Disease Mother - Genetic Paternal Grandfather - Hypertension Brother - Genetic Daughter Patient Allergies ALLERGIES No Known Allergies Current Medications Current Outpatient Medications on File Prior to Visit Medication Sig - buPROPion XL (WELLBUTRIN XL) 150 mg 24 hr tablet Bupropion Xl Active 150 MG DAILY June 29, 2019 2:41pm - clindamycin (CLEOCIN) 300 mg capsule Take 1 capsule by mouth four times daily. - cyclobenzaprine (FLEXERIL) 10 mg tablet Take 1 tablet by mouth three times daily as needed for muscle spasm. - atorvastatin (LIPITOR) 40 mg tablet TAKE 1 TABLET BY MOUTH AT BEDTIME - etodolac (LODINE) 200 mg capsule Take 1 capsule by mouth twice daily. For low back pain (Patient not taking: Reported on 03/15/2021 ) - Cholecalciferol, Vitamin D3, 5,000 unit cap TAKE 1 CAPSULE BY MOUTH DAILY (Patient not taking: Reported on 03/15/2021) - omeprazole (PRILOSEC) 20 mg capsule Take 1 capsule by mouth once daily. 1/2 hour before breakfast (Patient not taking: Reported on 03/15/2021 ) - BIPAP RECOMMENDATIONS: ASV EPAP min 9 cmH2O, EPAP max 97mcR1A, IPAP max 94xlC0S with PS 3-15 cmH2O and an auto back-up rate. Humidification and a medium [employer] Mask, filters, tubing, humidifier and lifetime supplies. Dx: TYSON - FLUoxetine (PROZAC) 10 mg capsule 1 aman (more content not included)... Normal [facility] Progress Noteson 05-02-2021 [employer] Authentication Interface Message Text Called pt today Explained that due to conflicting information about the reason why the decided to stop the hormonal therapy (previously in February 2021 they mentioned that he was overwhelmed with personal problems and prefers not to take the estrogen anymore. Then today he reports that he had a medical issue (was nto able to explain exactly what was going on lately. Advised pt to get reevaluation with psychiatry again and when cleared for hormonal therapy by psych we will consider resuming estrace and spironolactone. To note that they will still need to get blood work as a new baseline done before starting the treatment. Patient understands and agrees to the plan. Mina Hill MD. Phone numbers Preferred Documentation: Mode: In Person Time-Based Billing Justifications: Charting in Epic Patient visit (including performing a medically appropriate exam) Obtaining history (or reviewing separately obtained history) Counseling/educating the patient/family/caregive r Normal [facility] Progress Noteson 05-01-2021 [employer] Interface Message Text Phone numbers Preferred Documentation: Mode: In Person Time-Based Billing Justifications: Charting in Epic Patient visit (including performing a medically appropriate exam) Obtaining history (or reviewing separately obtained history) Counseling/educating the patient/family/caregive r Called pt twice no answer , rita VM , may reschedule visit Normal [facility] Telephone Encounteron 2020 [employer] Interface Message Text Spoke with patient, made him aware of his tele visit with provider as requested. Normal [facility] Telephone Encounteron 2020 [employer] Interface Message Text Patient called, contact made. Identified self with full name and . Message given as per Dr. Hill. Patient states that he spoke with Psychiatry today, not clear if he got clearance but states they know that he wants to restart meds. Does want to make a Telemedicine appointment with Dr. Hill to discuss Normal [facility] Telephone Encounteron 2020 [employer] Interface Message Text Chart reviewed. Last appointment 03-06-2021, Telemedicine Normal [facility] [employer] Interface Message Text Situation: Patient called Background: Per patient wanted to discuss hormone therapy and discuss starting medication again Assessment: Call patient Recommendation: Pt [phone] Normal [facility] Progress Noteson 03-06-2021 [employer] Interface Message Text Phone numbers Preferred Documentation: Mode: In Person Time-Based Billing Justifications: Charting in Epic Patient visit (including performing a medically appropriate exam) Obtaining history (or reviewing separately obtained history) Counseling/educating the patient/family/caregive r Referring Therapist: Cornelius Lea Jr., M.Ed., [facility] [address] [place] [address] PCP: Eric Valle D.O. [address] [place] [address] #Gender Dysphoria 44 yo male to female transgender patient , gender dysphoria , was on estrace 2 mg BID and spironolactone Known to have : GERD Hx of Severe Depression Morbid Obesity Hx of eye enucleation Dyslipidemia In 04/2019 Cbc nle TSH 1.85 TG 130 LDL 109 HDL 39 TC 174 LFT: within nle Alb 4.2 BS 85 A1c 5.3% Creat 1.02 No elect disturbance GFR>60 Patient is referred to endocrine clinic for evaluation of gender dysphoria Previously followed by Dr Yañez Last seen in 2015 Previous hormonal therapy: estradiol 2 mg tid and spironolactone 100 mg po bid. The estrogen dose was increased from 2 mg bid in December of 2014 for an estradiol level of 20 and testosterone of 212. On the current dose the estradiol level is 121 and the testosterone 56. Patient was off the Estradiol and testosterone medications for 2 years 4154-5222, was Interested to go back on the regimen so we resumed the regimen as: ESTRACE 2 mg BID Spironolactone 100 mg one tablet daily Labs in November 2019 repeated while on the therapy : Estrogen: 133 pg/ml Testosterone 45 ng/dl PRL 7 ng/ml Tg 190 LDL 162 LFt nle Ht 43 Interval Hx: No CP. No DVT/PE, no CVA Or stroke since last seen Not on ASA or Blood thinner Reports having hair growth again Male aspect of the Voice Last blood work on October 2020 showed high LDL to 163 and elevated TG to 324 Testosterone levels and E2 levels are not at target range but we did not increase the Estrogen dose due to high risk of CV complicaitons of view of DL Last visit Advised pt to take Atorva as prescribed and repeat celine venegas then will consider taper Up the Estrigen dose if possible based on results Patient reprots that they stopped both estrace and spironolactone and that been experience depression and problem with the hormonal therapy and They peferred to just stop the therapy all together Taking Lipitor howeveer now Advised to still get the blood work to follow on FLP And advised to infomr us if decided to resume the treatment as any time in the future To note that it is not advisable to be on the therapy on and off If pt decides to resume the treatment in the future they will need to get clearance from psych again to make sure they would benefit from it and that the decision about trasgender therapy is satble [facility] Patient understands the plan RTC in 6 months Mina Hill MD. Normal [facility] .Auto Diffon 01-30-2021 Basophil, Absolute 0.10 10 3/mcL Normal 0.00-0.19 [facility] ([place]) Comment on above: Performed By: #### C BC, ADIFF, ANEU, LIP, CMP #### [place] [address] #### GFR #### [address] [address] Basophils/100 WBC (Bld) 0.5 % Normal 0.0-2.5 [facility] ([place]) Comment on above: Performed By: #### C BC, ADIFF, ANEU, LIP, CMP #### [place] [address] #### GFR #### [address] [address] Eosinophil, Absolute 0.20 10 3/mcL Normal 0.00-0.40 [facility] ([place]) Comment on above: Performed By: #### C BC, ADIFF, ANEU, LIP, CMP #### [place] [address] #### GFR #### [address] [address] Eosinophils/100 WBC (Bld) 1.3 % Normal 0.0-7.0 [facility] ([place]) Comment on above: Performed By: #### C BC, ADIFF, ANEU, LIP, CMP #### [place] [address] #### GFR #### [address] [address] Lymphocyte, Absolute 2.20 10 3/mcL Normal 0.77-3.85 [facility] ([place]) Comment on above: Performed By: #### C BC, ADIFF, ANEU, LIP, CMP #### [address] [address] #### GFR #### [address] [address] Lymphocytes/100 WBC (Bld) 15.9 % Normal 10.0-50.0 [facility] ([place]) Comment on above: Performed By: #### C BC, ADIFF, ANEU, LIP, CMP #### [place] [address] #### GFR #### [address] [address] Monocyte, Absolute 1.40 10 3/mcL High 0.15-1.00 [facility] ([place]) Comment on above: Performed By: #### C BC, ADIFF, ANEU, LIP, CMP #### [place] [address] #### GFR #### [address] [address] Monocytes/100 WBC (Bld) 9.8 % Normal 1.7-13.0 [facility] ([place]) Comment on above: Performed By: #### C BC, ADIFF, ANEU, LIP, CMP #### [address] [address] #### GFR #### [address] [address] Neutrophils/100 WBC (Bld) 72.5 % Normal 37.0-80.0 [facility] ([place]) Comment on above: Performed By: #### C BC, ADIFF, ANEU, LIP, CMP #### [address] [address] #### GFR #### [address] [address] .GFRon 01-30-2021 GFR 46 ml/min/1.73sqm Normal [facility] ([place]) Comment on above: Result Comment: GFR Population mean for , Non- Americans Ages 20-29 = 116 mL/min/1.73 sq.m. Ages 30-39 = 107 mL/min/1.73 sq.m. Ages 40-49 = 99 mL/min/1.73 sq.m. Ages 50-59 = 93 mL/min/1.73 sq.m. Ages 60-69 = 85 mL/min/1.73 sq.m. Ages 70+ = 75 mL/min/1.73 sq.m. Chronic Kidney Disease: Less than 60 mL/min/1.73 square meters End Stage Renal Disease: Less than 15 mL/min/1.73 square meters Performed By: #### C BC, ADIFF, ANEU, LIP, CMP #### [address] [address] #### GFR #### [address] [address] GFR Non- 38 ml/min/1.73sqm Normal [facility] ([place]) Comment on above: Result Comment: GFR Population mean for , Non- Americans Ages 20-29 = 116 mL/min/1.73 sq.m. Ages 30-39 = 107 mL/min/1.73 sq.m. Ages 40-49 = 99 mL/min/1.73 sq.m. Ages 50-59 = 93 mL/min/1.73 sq.m. Ages 60-69 = 85 mL/min/1.73 sq.m. Ages 70+ = 75 mL/min/1.73 sq.m. Chronic Kidney Disease: Less than 60 mL/min/1.73 square meters End Stage Renal Disease: Less than 15 mL/min/1.73 square meters Performed By: #### C BC, ADIFF, ANEU, LIP, CMP #### [address] [address] #### GFR #### [address] [address] .NEUABSon 01-30-2021 Neutrophil, Absolute 10.10 10 3/mcL High 2.85-6.16 [facility] ([place]) Comment on above: Performed By: #### C BC, ADIFF, ANEU, LIP, CMP #### [address] [address] #### GFR #### [address] [address] CBCon 01-30-2021 Erythrocyte distribution width (RBC) [Ratio] 13.1 % Normal 11.5-14.5 [facility] ([place]) Comment on above: Performed By: #### C BC, ADIFF, ANEU, LIP, CMP #### [place] [address] #### GFR #### [place] [address] Hematocrit (Bld) [Volume fraction] 37.7 % Low 42.0-52.0 [facility] ([place]) Comment on above: Performed By: #### C BC, ADIFF, ANEU, LIP, CMP #### [place] [address] #### GFR #### [place] [address] Hgb 12.6 G/dL Low 14.0-18.0 [facility] ([place]) Comment on above: Performed By: #### C BC, ADIFF, ANEU, LIP, CMP #### [place] [address] #### GFR #### [place] [address] MCH (RBC) [Entitic mass] 28.0 pg Normal 27.0-31.2 [facility] ([place]) Comment on above: Performed By: #### C BC, ADIFF, ANEU, LIP, CMP #### [place] [address] #### GFR #### [place] [address] MCHC 33.5 G/dL Normal 31.8-35.4 [facility] ([place]) Comment on above: Performed By: #### C BC, ADIFF, ANEU, LIP, CMP #### [place] [address] #### GFR #### [place] [address] MCV (RBC) [Entitic vol] 83.4 fL Normal 80.0-94.0 [facility] ([place]) Comment on above: Performed By: #### C BC, ADIFF, ANEU, LIP, CMP #### [place] [address] #### GFR #### [place] [address] Platelet 314 10 3/mcL Normal 130-400 [facility] ([place]) Comment on above: Performed By: #### C BC, ADIFF, ANEU, LIP, CMP #### [place] [address] #### GFR #### [place] [address] Platelet mean volume (Bld) [Entitic vol] 7.7 fL Normal 7.4-10.4 [facility] ([place]) Comment on above: Performed By: #### C BC, ADIFF, ANEU, LIP, CMP #### [place] [address] #### GFR #### [place] [address] RBC 4.52 10 6/mcL Normal 4.04-6.13 [facility] ([place]) Comment on above: Performed By: #### C BC, ADIFF, ANEU, LIP, CMP #### [place] [address] #### GFR #### [place] [address] WBC 13.90 10 3/mcL High 4.60-10.80 [facility] ([place]) Comment on above: Performed By: #### C BC, ADIFF, ANEU, LIP, CMP #### [place] [address] #### GFR #### [place] [address] CMPon 01-30-2021 Albumin Level 2.7 G/dL Low 3.5-5.0 [facility] ([place]) Comment on above: Performed By: #### C BC, ADIFF, ANEU, LIP, CMP #### [place] [address] #### GFR #### [address] [address] Albumin/Globulin [Mass ratio] 0.7 {ratio} Low 1.1-2.5 [facility] ([place]) Comment on above: Performed By: #### C BC, ADIFF, ANEU, LIP, CMP #### [place] [address] #### GFR #### [address] [address] ALP [Catalytic activity/Vol] 96 U/L Normal 40-135 [facility] ([place]) Comment on above: Performed By: #### C BC, ADIFF, ANEU, LIP, CMP #### [place] [address] #### GFR #### [address] [address] ALT [Catalytic activity/Vol] 30 U/L Normal 16-63 [facility] ([place]) Comment on above: Performed By: #### C BC, ADIFF, ANEU, LIP, CMP #### [place] [address] #### GFR #### [address] [address] AST [Catalytic activity/Vol] 18 U/L Normal 10-40 [facility] ([place] Comment on above: Performed By: #### C BC, ADIFF, ANEU, LIP, CMP #### [place] [address] #### GFR #### [address] [address] Bili Total 0.3 mg/dL Normal 0.2-1.0 [facility] ([place]) Comment on above: Result Comment: Use of this assay is not recommended for patients undergoing treatment with eltrombopag due to the potential for falsely elevated results. Performed By: #### C BC, ADIFF, ANEU, LIP, CMP #### [address] [address] #### GFR #### [address] [address] BUN/Creatinine Ratio 15 ratio Normal 7-27 [facility] ([place]) Comment on above: Performed By: #### C BC, ADIFF, ANEU, LIP, CMP #### [place] [address] #### GFR #### [address] [address] Calcium [Mass/Vol] 9.0 mg/dL Normal 8.4-10.2 [facility] ([place]) Comment on above: Performed By: #### C BC, ADIFF, ANEU, LIP, CMP #### [place] [address] #### GFR #### [place] [address] Chloride [Moles/Vol] 104 mmol/L Normal 98-107 [facility] ([place] Comment on above: Performed By: #### C BC, ADIFF, ANEU, LIP, CMP #### [place] [address] #### GFR #### [address] [address] CO2 [Moles/Vol] 26 mmol/L Normal 22-29 [facility] ([place] Comment on above: Performed By: #### C BC, ADIFF, ANEU, LIP, CMP #### [address] [address] #### GFR #### [address] [address] Creatinine [Mass/Vol] 1.93 mg/dL High 0.70-1.30 [facility] ([place]) Comment on above: Performed By: #### C BC, ADIFF, ANEU, LIP, CMP #### [place] [address] #### GFR #### [address] [address] Electrolyte Balance 8.0 mEq/L Normal [facility] ([place]) Comment on above: Performed By: #### C BC, ADIFF, ANEU, LIP, CMP #### [address] [address] #### GFR #### [address] [address] Globulin 3.9 G/dL Normal [facility] ([place] Comment on above: Performed By: #### C BC, ADIFF, ANEU, LIP, CMP #### [address] [address] #### GFR #### [address] [address] Glucose [Mass/Vol] 110 mg/dL High 70-105 [facility] ([place] Comment on above: Performed By: #### C BC, ADIFF, ANEU, LIP, CMP #### [address] [address] #### GFR #### [address] [address] Potassium [Moles/Vol] 4.5 mmol/L Normal 3.5-5.1 [facility] ([place] Comment on above: Performed By: #### C BC, ADIFF, ANEU, LIP, CMP #### [address] [address] #### GFR #### [address] [address] Sodium [Moles/Vol] 138 mmol/L Normal 136-145 [facility] ([place] Comment on above: Performed By: #### C BC, ADIFF, ANEU, LIP, CMP #### [address] [address] #### GFR #### [address] [address] Total Protein 6.6 G/dL Normal 6.4-8.2 [facility] ([place] Comment on above: Performed By: #### C BC, ADIFF, ANEU, LIP, CMP #### [address] [address] #### GFR #### [address] [address] Urea nitrogen [Mass/Vol] 29 mg/dL High 7-18 [facility] ([place] Comment on above: Performed By: #### C BC, ADIFF, ANEU, LIP, CMP #### [address] [address] #### GFR #### [address] [address] LIPon 01-30-2021 Lipase Level 118 U/L Normal 73-393 [facility] ([place] Comment on above: Performed By: #### C BC, ADIFF, ANEU, LIP, CMP #### [address] [address] #### GFR #### [address] [address] Telephone Encounteron 2020 [employer] Interface Message Text Identification was verified by patient verbalizing his name and date of . Advised her of medication changes, she verbalized understanding. Normal [facility] Telephone Encounteron 2020 [employer] Interface Message Text Patient called back to discuss message in full detail. Please call between 11AM and 4PM only (due to 3rd shift work schedule) [phone] Thanks so much. Normal [facility] [employer] Interface Message Text VM left advising to call back to discuss medication changes. Normal [facility] Telephone Encounteron 2020 [employer] Interface Message Text estradiol level is beloe target and testosterone is not suppressed completely so we should increase estrace to TID and spironolcatone to BID The problem is the LDL and TG levels that are high which increases risk of CV events especially that she s on Estradiol. So She needs to start Atorvastatin 20 mg daily (Should address the pt as She Being female trans) Also should repeat lab work in 2 months and must be FASTING Normal [facility] ESTRADIOL, SENSITIVEon 10-24 ESTRA 96.7 pg/mL High 15.0-31.5 [facility] Comment on above: Result Comment: Fema les ovulating: Early Follicular: 22.4 - 115.0 pg/mL Mid Follicular: 25.0 - 115.0 pg/mL Ovulatory Phase: 32.1 - 517.0 pg/mL Mid-Luteal: 36.5 - 246.0 pg/mL Post Menopausal: Untreated: 0.0 - 25.1 pg/mL Performed By: #### K , HEPATIC, HDL, PROLACT, ESTRA ####[facility] [id number] [place] [address], FULL LIPID PROFILEon 021 Cholesterol [Mass/Vol] 247 mg/dL High <181 Th e [facility] Comment on above: Performed By: #### K , HEPATIC, HDL, PROLACT, ESTRA ####[facility] [id number] [place], [place], Cholesterol in LDL [Mass/Vol] 163 mg/dL High <111 [facility] Comment on above: Performed By: #### K , HEPATIC, HDL, PROLACT, ESTRA ####[facility] [id number] [place] [address], Cholesterol.total/Fatimah sterol in HDL [Mass ratio] 5.88 {ratio} Normal [facility] Comment on above: Performed By: #### K , HEPATIC, HDL, PROLACT, ESTRA ####[facility] [id number] [place], [place], HDL CHOL 42 mg/dL Low >44 The [facility] Comment on above: Performed By: #### K , HEPATIC, HDL, PROLACT, ESTRA ####[facility] [id number] [place], LDL/HDL 3.88 High <3.57 [facility] Comment on above: Performed By: #### K , HEPATIC, HDL, PROLACT, ESTRA ####[facility] [id number] [place], [place], NON-HDL CHOLESTEROL 205 mg/dL High <130 [facility] Comment on above: Performed By: #### K , HEPATIC, HDL, PROLACT, ESTRA ####[facility] [id number] [place], Triglyceride [Mass/Vol] 324 mg/dL High <151 T [facility] Comment on above: Performed By: #### K , HEPATIC, HDL, PROLACT, ESTRA ####[facility] [id number] [place], HEPATIC FUNCTION PANELon Albumin [Mass/Vol] 3.5 g/dL Normal 3.4-5.1 [facility] Comment on above: Performed By: #### K , HEPATIC, HDL, PROLACT, ESTRA ####[facility] [id number] [place], [place], ALK 51 IU/L Normal 40-200 [facility] Comment on above: Performed By: #### K , HEPATIC, HDL, PROLACT, ESTRA ####[facility] [id number] [place], ALT [Catalytic activity/Vol] 22 U/L Normal 7-40 [facility] Comment on above: Performed By: #### K , HEPATIC, HDL, PROLACT, ESTRA ####[facility] [id number] [place], AST [Catalytic activity/Vol] 18 U/L Normal 7-40 [facility] Comment on above: Performed By: #### K , HEPATIC, HDL, PROLACT, ESTRA ####[facility] [id number] [place], Bilirubin [Mass/Vol] 0.5 mg/dL Normal 0.1-1.5 [facility] Comment on above: Performed By: #### K , HEPATIC, HDL, PROLACT, ESTRA ####[facility] [id number] [place], Bilirubin.direct [Mass/Vol] 0.10 mg/dL Normal 0.10-0.30 [facility] Comment on above: Performed By: #### K , HEPATIC, HDL, PROLACT, ESTRA ####[facility] [id number] [place], Protein [Mass/Vol] 6.7 g/dL Normal 6.2-8.3 [facility] Comment on above: Performed By: #### K , HEPATIC, HDL, PROLACT, ESTRA ####[facility] [id number] [place], [place], POTASSIUMon 10-24-2020 Potassium [Moles/Vol] 4.5 mmol/L Normal 3.3-5.3 [facility] Comment on above: Performed By: #### K , HEPATIC, HDL, PROLACT, ESTRA #### [facility] [address] [place], [place], PROLACTINon 10-24-2020 PROLACT 10.7 ng/mL Normal 2.1-15.0 [facility] Comment on above: Performed By: #### K , HEPATIC, HDL, PROLACT, ESTRA ####[facility] [id number] [place], [place], Progress Noteson 10-24-2020 [employer] Interface Message Text Patient was identified by name and date of . Regan Chaparro Patient at risk for falls:No Falls Risk protocol implemented: No [facility] [employer] Aut[employer] Interface Message Text Referring Therapist: Cornelius Lea Jr., M.Ed., [facility] [address] [facility] [place] [address] PCP: Eric Valle D.O. [address] [place] [address] #Gender Dysphoria 44 yo male to female transgender patient Known to have : GERD Hx of Severe Depression Morbid Obesity Hx of eye enucleation Dyslipidemia PMH as above Social Hx: Smoking status: Former Smoker Quit date: 09/28/2005 Alcohol use: No Drug use: No Allergies: noen Medications: As per last visit with Family medicine with Eric Valle DO. * atorvastatin (LIPITOR) 40 mg tablet TAKE 1 TABLET BY MOUTH AT BEDTIME * etodolac (LODINE) 200 mg capsule Take 1 capsule by mouth twice daily. For low back pain * Cholecalciferol, Vitamin D3, 5,000 unit cap TAKE 1 CAPSULE BY MOUTH DAILY * omeprazole (PRILOSEC) 20 mg capsule Take 1 capsule by mouth once daily. 1/2 hour before breakfast * BIPAP RECOMMENDATIONS: ASV EPAP min 9 cmH2O, EPAP max 64onI8O, IPAP max 70ekU8V with PS 3-15 cmH2O and an auto back-up rate. Humidification and a medium [employer] Mask, filters, tubing, humidifier and lifetime supplies. Last labs In 04/2019 Cbc nle TSH 1.85 TG 130 LDL 109 HDL 39 TC 174 LFT: within nle Alb 4.2 BS 85 A1c 5.3% Creat 1.02 No elect disturbance GFR>60 Patient is referred to endocrine clinic for evaluation of gender dysphoria Previously followed by Dr Yañez Last seen in 2015 Previous hormonal therapy: estradiol 2 mg tid and spironolactone 100 mg po bid. The estrogen dose was increased from 2 mg bid in December of 2014 for an estradiol level of 20 and testosterone of 212. On the current dose the estradiol level is 121 and the testosterone 56. Patient was off the Estradiol and testosterone medications for 2 years [id number], was Interested to go back on the regimen so we resumed the regimen as: ESTRACE 2 mg BID Spironolactone 100 mg one tablet daily Labs in November repeated while on the therapy : Estrogen: 133 pg/ml Testosterone 45 ng/dl PRL 7 ng/ml Tg 190 LDL 162 LFt nle Ht 43 Interval Hx: No CP. No DVT/PE, no CVA Or stroke since last seen Not on ASA or Blood thinner Reports having hair growth again Male aspect of the Voice Plan: Repeat blood etst for E2 , Testosterone , Lipids, LFT,s PRL, Based on results, will consider increasing the doses of estrace ad spironolactone To 2 mg TID and 100 mg BID Patient understands the plan Will have the test done in [facility] close to where the Live RTC in 6 months Mina Hill MD. Normal [facility] TESTOSTERONE, TOTALon 2020 TEST T 114 ng/dL Low 220-1,000 [facility] Comment on above: Performed By: #### T EST T ####[facility] [id number] [facility] [place], [address] Telephone Encounteron 2020 [employer] Interface Message Text Patient is calling to check on the status of this request as well as request Spironolactone 100mg, 1 tablet by mouth. Patient is out of medication. Last visit with Danyell Ricketts) was on 08/23/19 Next visit with Danyell Ricketts) is scheduled for 10/24/20 Requested Prescriptions Pending Prescriptions Disp Refills * estradiol (ESTRACE) 2 MG tablet 180 Tablet 3 Sig: Take 1 Tablet by mouth 2 times daily. * spironolactone (ALDACTONE) 100 MG tablet 90 Tablet 3 Sig: Take 1 Tablet by mouth daily. No prior visit found with PCP (ERIC VALLE) No future appointment with PCP (ERIC VALLE) Normal [facility] Addendum Noteon 09-27-2020 [employer] Interface Message Text Addended by: JESS HANEY on: 09/27/2020 11:08 AM Modules accepted: Orders Normal [facility] Telephone Encounteron 2020 [employer] Interface Message Text Situation: Medication Request Background: Pt called requesting the medication estradiol (ESTRACE) 2 MG tablet, Take 1 Tablet by mouth 2 times daily. [facility] phamacy indicated that Pt does not have any refills left. Assessment: Please advise. Recommendation: Na Normal [facility] Telephone Encounteron 2020 [employer] Interface Message Text Encounter shows that both meds were approved, but only the Estradiol Rx was sent. Patient is calling to see if the Spironolactone Rx could be sent. Normal [facility] Vital Signs Date Time Vital Sign Value Performing Clinician Wan devine 12-12-2024 21:10-0400 Body temperature 97.8 [degF] Dr. Eric Valle DO Work Phone: [facility] 12-12-2024 21:10-0400 Diastolic blood pressure 120 mm[Hg] Dr. Eric Valle DO Work Phone: [facility] 12-12-2024 21:10-0400 Heart rate 97 /min Dr. Eric Valle DO Work Phone: [facility] 12-12-2024 21:10-0400 Respiratory rate 16 /min Dr. Eric Valle DO Work Phone: [facility] 12-12-2024 21:10-0400 SaO2% (BldA) [Mass fraction] 96 % Dr. Eric Valle DO Work Phone: 4(304)077-628621 [place] [address] 12-12-2024 21:10-0400 Systolic blood pressure 210 mm[Hg] Dr. Eric Valle DO Work Phone: 4(264)294-953421 [place] [address] 12-12-2024 17:58-0400 Body height 182.[address] Eric Valle DO Work Phone: 8(595)562-279621 [place] [address] 12-12-2024 17:58-0400 Body mass index (BMI) [Ratio] 41.6 kg/m2 Dr. Eric Valle DO Work Phone: 3(308)245-396021 [place] [address] 12-12-2024 17:58-0400 Body weight 139.[address] Eric Valle DO Work Phone: 7(035)567-147921 [place] [address] 09-27-2024 12:41-0400 Body temperature 97 [degF] Dr. Eric Valle DO Work Phone: 5(691)870-675721 [place] [address] 09-27-2024 12:41-0400 Diastolic blood pressure 130 mm[Hg] Dr. Eric Valle DO Work Phone: 6(944)473-403021 [place] [address] 09-27-2024 12:41-0400 Heart rate 16 /min Dr. Eric Valle DO Work Phone: 8(020)712-532421 [place] [address] 09-27-2024 12:41-0400 Respiratory rate 96 /min Dr. Eric Valle DO Work Phone: 3(927)203-027021 [place] [address] 09-27-2024 12:41-0400 SaO2% (BldA) [Mass fraction] 98 % Dr. Eric Valle DO Work Phone: 0(840)635-96[address] [place] [address] 09-27-2024 12:41-0400 Systolic blood pressure 220 mm[Hg] Dr. Eric Valle DO Work Phone: 7(860)691-993121 [place] [address] 09-27-2024 10:44-0400 Body mass index (BMI) [Ratio] 44.1 kg/m2 Dr. Eric Valle DO Work Phone: 4(705)467-513421 [place] [address] 09-27-2024 10:44-0400 Body weight 147.[address] Eric Valle DO Work Phone: [facility] 05-15-2023 00:06-0500 Diastolic blood pressure 100 mm[Hg] [facility] 05-15-2023 00:06-0500 Heart rate 89 /min [facility] 05-15-2023 00:06-0500 Respiratory rate 15 /min [facility] 05-15-2023 00:06-0500 SaO2% (BldA) [Mass fraction] 97 % [facility] 05-15-2023 00:06-0500 Systolic blood pressure 187 mm[Hg] [facility] 2023 22:48-0500 Body height 182.88 cm [facility] 2023 22:48-0500 Body temperature 97.8 [degF] [facility] 05-28-2022 15:16-0500 Body temperature 98.6 [degF] Quiana Denbow PA-C Work Phone: [facility] 05-28-2022 15:16-0500 Body weight 146.33 kg Quiana Denbow PA-C Work Phone: [facility] 05-28-2022 15:16-0500 Diastolic blood pressure 92 mm[Hg] Quiana Denbow PA-C Work Phone: [facility] 05-28-2022 15:16-0500 Heart rate 95 /min Quiana Denbow PA-C Work Phone: [facility] 05-28-2022 15:16-0500 Respiratory rate 21 /min Quiana Denbow PA-C Work Phone: [facility] 05-28-2022 15:16-0500 SaO2% (BldA) [Mass fraction] 98 % Quiana Denbow PA-C Work Phone: [facility] 05-28-2022 15:16-0500 Systolic blood pressure 152 mm[Hg] Uqiana Denbow PA-C Work Phone: [facility] 07-08-2022 10:34-0400 Body height 177.8 cm [facility] Work Phone: 11-29-2021 10:34-0400 Body mass index (BMI) [Ratio] 45 kg/m2 [facility] Work Phone: 11-29-2021 10:34-0400 Body temperature 97.9 [degF] [facility] Work Phone: 11-29-2021 10:34-0400 Body weight 142.42 kg [facility] Work Phone: 11-29-2021 10:34-0400 Diastolic blood pressure 83 mm[Hg] [facility] Work Phone: 11-29-2021 10:34-0400 Heart rate 69 /min [facility] Work Phone: 11-29-2021 10:34-0400 Respiratory rate 18 /min [facility] Work Phone: 11-29-2021 10:34-0400 SaO2% (BldA) [Mass fraction] 99 % [facility] Work Phone: 11-29-2021 10:34-0400 Systolic blood pressure 116 mm[Hg] [facility] Work Phone: Encounters Encounter Date Encounter Type Care Provider Facility Start: 12-12-2024 End: 12-12-2024 Emergency department patient visit Dr. Eric Valle DO Work Phone: -Emergency Department Work Phone: Start: 09-27-2024 End: 09-27-2024 Emergency department patient visit Dr. Bart Quintero MD -Emergency Department Work Phone: Start: 06-29-2024 End: 06-29-2024 Emergency department patient visit Jace Hodges Facility:[facility] Start: 02-29-2024 End: 03-01-2024 ambulatory Davonte Winkler Facility:[facility] Start: 2023 End: 05-15-2023 Emergency department patient visit [facility]-Emergency Department Work Phone: Start: 05-28-2022 End: 05-28-2022 ambulatory ERIC VALLE Facility:[facility] Start: 05-28-2022 End: 05-28-2022 Subsequent hospital visit by physician [facility] Work Phone: Radiology Comment on above: Acute left ankle elen n [M25.572] Start: 05-28-2022 End: 05-28-2022 Patient encounter procedure Quiana Salter PA-C Work Phone: [facility] Comment on above: Acute left ankle elen n (Primary Dx); Foot pain, left Start: 11-29-2021 End: 11-29-2021 Emergency department patient visit [facility]-Emergency Department Start: 11-22-2021 End: 11-22-2021 ambulatory MARIAMA VOSS Facility:[facility] Start: 05-02-2021 End: 05-06-2021 ambulatory UNKNOWN PROVIDER Facility:[facility] Start: 04-30-2021 ambulatory [facility] Start: 03-05-2021 ambulatory UNKNOWN PROVIDER [facility] Start: 10-24-2020 End: 10-25-2020 ambulatory UNKNOWN PROVIDER Facility:[facility] Procedures Date Procedure Procedure Detail Performing Clinician Start: 12-12-2024 X-ray of foot, three or more views Dr. Eric Valle DO Work Phone: Start: 09-27-2024 Urnls dip stick/tabl et reagent auto microscopy Dr. Eric Valle DO Work Phone: Start: 09-27-[address] Eric Valle DO Work Phone: Start: 2023 Plain X-ray of toe Start: 05-28-2022 Radex ankle complete minimum 3 views Quiana Salter PA-C Work Phone: Start: 10-24-2020 Lipid 1996 panel - S liz or Plasma [facility] [place] Work Phone: Plan of Treatment Date Care Activity Detail Author Start: 2033 Urine microalbumin profile DTaP,Tdap,Td Vaccine (3 - Td or Tdap) [facility] Start: 11-26-2025 Urine microalbumin profile DTAP,TDAP,TD (2 - Td or Tdap) [facility] Start: 10-24-2025 Lipid panel Lipid Screening [facility] Start: 12-15-2024 LIPID SCREEN LIPID SCREEN [facility] Start: 09-27-2024 [facility] Start: 01-24-2024 Covid-19 Vaccine ( season) Covid-19 Vaccine ( season) [facility] Start: 01-24-2024 Influenza vaccination Influenza Vacc ine (#1) [facility] Start: 2023 [facility] Start: 11-22-2022 HEPATITIS C SCREENING HEPATITIS C [facility] Comment on above: Postponed from 05/14 (Declined at this time) Start: 11-22-2022 HIV SCREENING HIV SCREENING [facility] Comment on above: Postponed from 05/14 (Declined at this time) Start: 08-07-2022 DIABETES SCREEN DIABETES SCREEN [facility] Start: 08-07-2022 Diabetes Screening Diabetes Screenin g [facility] Start: 2022 COLOGUARD (FIT-DNA) COLOGUARD (FIT-D NA) [facility] Start: 2022 Colonoscopy COLONOSCOPY [facility] Start: 2022 COLORECTAL CANCER SCREENING COLORECTAL CANCER SCREENING [facility] Start: [address] COLONOGRAPHY [facility] Start: 2022 FECAL OCCULT BLOOD FECAL OCCULT BLOO D [facility] Start: 2022 Screening for malign ant neoplasm of colon [facility] Start: 2022 SIGMOIDOSCOPY SIGMOIDOSCOPY [facility] Start: 01-23-2022 Influenza vaccination INFLUENZA (#1) [facility] Start: 1996 Hepatitis B Vaccine (1 of 3 - 19+ 3-dose series) Hepatitis B Vaccine (1 of 3 - 19+ 3-dose series) [facility] Start: 1995 Anxiety Screening Anxiety Screening [facility] Start: 1995 Hepatitis C screening Hepatitis C [facility] Start: 1995 HIV screening HIV Screening [facility] Start: 1977 COVID-19 VACCINE (#1) COVID-19 VACCI NE (#1) [facility] Start: 1977 HEPATITIS B (1 of 3 - 3-dose series) HEPATITIS B (1 of 3 - 3-dose series) [facility] Patient Education [facility] Work Phone: Patient referral [facility] Work Phone: [facility] Immunizations Immunization Date Immunization Notes Care Provider Henry hung 2023 tetanus toxoid, redu michelle diphtheria toxoid, and acellular pertussis vaccine, adsorbed [facility] 03-15-2021 influenza, injectabl e, quadrivalent, contains preservative Quiana Denbow PA-C Work Phone: [facility] 03-15-2021 influenza virus vaccine, unspecified formulation [facility] Work Phone: [facility] 04-06-2019 influenza, injectabl e, quadrivalent, contains preservative Quiana Denbow PA-C Work Phone: [facility] Work Phone: 11-27-2015 tetanus toxoid, redu michelle diphtheria toxoid, and acellular pertussis vaccine, adsorbed Quiana Denbow PA-C Work Phone: [facility] Work Phone: Payers Date Payer Category Payer Self-pay [id number] 2019 Medicaid [id number] 2014 Medicaid [id number] 1977 Unknown [id number] 2.16. [id number] 1977 Unknown [id number] 2.16. [id number] 1977 Unknown [id number] 2.16. [id number] 1977 Unknown [id number] 2.16. [id number] 1977 Unknown [id number] 2.16. [id number] Unknown [id number] Unknown [id number] 2.16.8 [id number] Unknown [id number] 2.16.8 [id number] Unknown [id number] 2.16.8 [id number] Unknown [id number] 2.16.8 [id number] Unknown [id number] 2.16.8 [id number] Unknown [id number] 2.16.8 [id number] Social History Date Type Detail Facility Start: 11-29-2021 End: 2023 Tobacco smoking status [facility] Unknown if ever smoked [facility] Start: 10-12-2020 Non-smoker [facility] Start: 1975 Sex Assigned At Male W [facility] Start: 05-28-2022 End: 12-12-2024 Tobacco smoking status CTIS Ex-smoker [facility] End: 09-28-2005 History of tobacco use Current smoker [facility] End: 09-28-2005 History of tobacco use Cigarette Smoker [facility] Start: 05-28-2022 Tobacco use and exposure Smokeless tobacco non-user [facility] Start: 05-28-2022 Alcohol intake Current drinke r of alcohol (finding) [facility] Start: 11-22-2021 End: 05-28-2022 Alcohol intake [facility] Start: 1975 Sex Assigned At Not on file C [facility] Start: 11-22-2021 End: 05-28-2022 Tobacco use panel [facility] Adult Depression Screening Assessment 0 [facility] Clinical Notes 10-03-2020 to 12-12-2024 Note Date & Type Note Facility 12-12-2024 Discharge summary [facility] 12-12-2024 Radiology Diagnostic study note [facility] Imaging Services [address] [place] [address] Foot min 3 Views MR#: [id number] Acct: [id number] Name: BEBETO ALICEA Sr. Rep #: [id number] : 1975 M 49 From: Dax Vaughn MD PCP: Dr. Eric Valle DO Status: RE G ER Study:Foot min 3 Views Date of Exam: Exam# [id number] Ordering Dr: Johan Alvarado MD PROCEDURE: RIGHT FOOT MIN 3 VIEWS 12/12/2024 REASON FOR EXAM: ATRAUMATIC RIGHT HEEL PAIN TECHNIQUE: RIGHT FOOT MIN 3 VIEWS COMPARISON: None. FINDINGS: No acute fracture or dislocation. Alignment is anatomic. Preserved joint spaces.No aggressive osseous lesion. No focal soft tissue swelling or radiopaque foreign body. RAD/Foot min 3 Views IMPRESSION: Unremarkable right foot radiographs. Reading Location: [id number] CC: Dr. Tyson Alvarado MD; Dr. Eric Valle DO ~ 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: Signed [facility] 12-12-2024 Discharge summary Note Date/Time December 12, 2024 9:00pm [facility] Medical Records Department [address] [place] [address] Emergency Department Summary 12/12/24 MR#: [id number] Acct: [id number] Name: BEBETO ALICEA Sr. Rep #:[id number] : 1975 49 From: Tyson Alvarado MD PCP: Dr. Eric Valle DO Status:RE G ER Location: ED HPI History of Present Illness HPI Narrative: 49-year-old male history of hypertension states he did not take his blood pressure medication yet today. Came in for right heel pain. 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 He has been having pain in his right heel. Denies any fall injury or trauma to the heel. No priorfoot surgery. Chief Complaint: Lower Extremity Injury Informant: patient Onset/Context/Timing Onset: Days Context: Gradual Onset Timing: Continuous Quality of Pain: Sharp Current Severity: Moderate Maximum Severity: Moderate Associated Symptoms Associated Symptoms: Negative for Parasthesia, Weakness or Loss of Funtion Narrative Narrative: 49 male history of hypertension and right heel pain. Denies any trauma. No fever or redness. No swelling. Has been walking more at work. Prior similar symptoms: No Recent Illness/Hospitalization: No PFSH PFSH Medical History MRSA (methicillin resistant staph aureus) culture positive Hypertension Hypercholesterolemia Depression Arthritis History of eye injury Home Medications ?Medication ?Instructions ?Recorded ?Last Taken ?Type hydrochlorothiazide 12.5 mg tablet 12.5 mg PO DAILY #3 0 tabs 09/27/24 Unknown Rx lisinopril 10 mg tablet 10 mg PO DAILY #30 tabs 05/11/16 Unknown Rx Allergy/AdvReac Type Severity Reaction Status Date / Time No Known Allergies Allergy Verified 12/12/24 17:59 Family History Other Heart disease Kidney disease Surgical History History of facial surgery History of carpal tunnel release Social History Smoking Status: Former smoker ROS ROS ED ROS Narrative Denies recent illness. No chest pain. No headache. Constitutional Constitutional ED: Denies chills or fever(s) Eyes Eyes: Denies blurry vision ENT ENT ED: Denies ear pain Cardiovascular Cardiovascular: Denies chest pain Respiratory/Chest Respiratory/Chest: Denies cough Gastrointestinal Gastrointestinal: Denies abdominal pain Genitourinary Genitourinary ED: Denies dysuria Musculoskeletal Musculoskeletal: Denies arthralgias Integumentary Denies abscess Neurologic Neurologic: Denies headache(s) Psychiatric Psychiatric: Denies anxiety Endocrine Endocrinology: Denies polydipsia Hematologic/Lymphatic Hematologic/Lymphatic: Denies easy bleeding or easy bruising Allergic/Immunologic Allergic/Immunologic ED: Denies mouth swelling, tongue swelling or urticaria EXAM Physical Exam Narrative Exam Narrative: Well-appearing 49-year-old male sitting upright in bed vital signs initial pressure 190/120 1 repeat 196/110 he is in no distress he has no headache or chest pain. States he did not take his blood pressure medication today. Believes he is on lisinopril. 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 Left eye pupils round reactive light. No facial trauma currently. Neck nontender no JVD. Lungs clear to auscultation. Heart regular rhythm no murmur. Chest wall nontender. Abdomen soft nontender. Moving all 4 extremities. Nontender no edema except his right heel is tender topalpation. Does not appear to be plantar fasciitis. There is no deformity of the right heel there is no puncture wound or signs of trauma. He has normal dorsi plantarflexion. There is no redness, warmth or swelling. There is no discoloration of the skin. There is no signs of a puncture wound. He has a normal DP pulse. The rest of his foot is nontender. Neurologically he is awakeand alert. Blind in his right eye. Const Vital Signs: 12/12/24 17:58 12/12/24 18:03 12/12/24 19:59 Temperature 98.2 F Temperature Source Temporal Pulse Rate 113 H Respiratory Rate 16 18 Blood Pressure 198/121 H 196/110 H 207/111 H Blood Pressure Mean 146 138 143 Pulse Ox 97 98 Oxygen Delivery Method Room Air Room Air Positive well nourished, well developed and obese; Negative for cachectic, contractures or unkempt General Appearance ED: well developed and NAD; Negative for unkempt, cachectic or contractures Nutritional Appearance: obese; Negative for cachectic HEENT Reports moist mucous membranes normocephalic and atraumatic Eyes Eyes Narrative: Blind right eye. Scarring. Neck full ROM and supple Chest Wall inspection of chest normal and palpation of chest normal Resp normal respiratory effort, no retractions and clear to auscultation bilaterally Cardio regular rate, regular rhythm, S1 normal heart sound, S2 normal heart sound and no murmurs GI non-tender, non-distended and no masses Back/Spine no CVA tenderness General Back: Negative for CVA tenderness Cervical Spine: Negative for cervical spine tenderness Thoracic Spine / Upper Back: Negative for thoracic spinal tenderness Lumbar Spine / Lower Back: Negative for lumbar spinal tenderness Extremity normal to inspection and full ROM Extremity Narrative: Except tender on the right heel at the bottom. No puncture wound. No redness or warmth. No swelling. No discoloration. Neuro oriented x3, No CN's II-XII intact bilaterally, moves all extremities and no sensory deficits noted Neuro Narrative: Blind right eye. Sensorium / Orientation: alert, oriented to person, oriented to place and oriented to time Motor Exam: strength 5/5 throughout Psych mental status grossly normal Appearance: Negative for unkempt Skin no wounds Lesions: no lesions Rashes: no rashes MDM MDM MDM Narrative Medical decision making narrative: 49-year-old male right heel pain possible heel spur. Versus overuse. Also acute on chronic hypertension did not take his blood pressure medication today has no other complaints will be given 20 mg p.o. of lisinopril. Repeat exam patient is doing well at 8:55 PM. He will be discharged home. Willrepeat check his blood pressure prior to discharge. I did go over his x-rays with him. This may all be just some soft tissue inflammation versus an early heel spur. Radiography Diagnostic Testing: Clinical Impression(s) from Imaging Studies Foot X-Ray 12/12/24 19:09 IMPRESSION: Unremarkable right foot radiographs. Reading Location: [facility] Right foot x-ray 3 views interpreted by myself and the radiologist unremarkable. Possible early heel spur. No fracture. No dislocation. Discharge Plan Triage Chief Complaint: Lower Extremity Injury ED Provider: Tyson Alvarado Dx/Rx/DC Orders Clinical Impression: Heel pain Instructions: ED Heel Spur Prescriptions: No Action lisinopril 10 mg tablet 10 mg PO DAILY Qty: 30 0RF hydrochlorothiazide 12.5 mg tablet 12.5 mg PO DAILY Qty: 30 0RF Primary Care Provider: Eric Valle Referrals: Eric Valle DO [Primary Care Provider] - Saman Belcher DPM [Med Staff - Active Staff] - As Needed Activity Restrictions/Additional Instructions: Ice to heel. Rest. Motrin for pain and inflammation. Tylenol for pain. Get the shoe inserts the heel cups that all decrease the pain and inflammation. Follow-up with the games dealer if you are not improving. This could just be inflammation of the soft tissue. You might be developing an early heel spur. Print Language: Armenian Disposition Disposition: Home, Self Care What to do if you have Problems For any increased pain, shortness of breath, bleeding, nausea or vomiting, chestpain, or any unexpected problems, contact your Primary Care Provider. Call [facility] ([phone]) or report to the closest Emergency Room. Call 911 if necessary. 12/12/242099 <Electronically signed by Tyson Alvarado MD> Cosigner Signature (if applicable): CC: Dr. Eric Valle, ~ Signed [facility] Work Phone: [phone] 861-803310-08-2024 [facility] Medical Records Department [address] [place] [address] Discharge Summary 03/01/24 1222 MR#: [id number] Acct: [id number] Name: BEBETO ALICEA Rep #: [id number] : 1975 48 From: Davonte Winkler MD PCP: Dr. Eric Valle, Status:ADM DAVID Location: [place] [address] Providers Date of Admission: 02/29/24 Primary Care Physician: Dr. 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 Routine Comment: Reason For Visit: HAND CELLUTLITIS Diagnosis Discharge Diagnosis (1) Cellulitis: Status: Acute Code(s): L03.90 - Cellulitis, unspecified Plan Gross Medications at Discharge Home Medications bupropion HCl 150 mg 24 hr tablet, extended release 150 mg PO DAILY DEPRESSION 06/29/19 estradiol 2 mg tablet 2 mg PO DAILY 10/12/20 omeprazole 20 mg capsule,delayed release 20 mg PO DAILY GERD 02/29/24 amlodipine 10 mg tablet 10 mg PO DAILY 30 days #30 tabs 03/01/24 doxycycline monohydrate 100 mg capsule 100 mg PO BID #20 caps 03/01/24 Hospital Course Operations None Procedures None Summary of Care Provided Minutes Spent on Discharge: 35 Hospital Course: Per HPI: BEBETO ALICEA, is a 48 M who presents to the hospital for an abscess on his left breast. He states that a couple days ago he was pressure washing and cause some irritation on the inside of his left wrist but it seemed to be getting better until 2 days ago when he was at work and he was lifting all day and he noticed that he developed a little bit of an abscess that had gotten worse as the day went on. This morning he noticed that it was very tender and red so he cleaned it off with alcohol and cleaned off a supervisor mattress and boxsprings and cut into the abscess a little bit. He noticed purulent white material as well as cyst serosanguineous fluid that came out. He presented to the ER and no more fluid could be expressed we did attempt a wound culture though. White count is little bit elevated at 12.7 but no signs of sepsis. He was started on vancomycin and Zosyn in the ER. Hospital Course: 1. Left wrist cellulitis with abscess???48-year-old male presents from home after using a supervisor mattress and boxsprings to sukhdeep an abscess on his left wrist. He said that he feels much better today white count is slightly improved though still little bit elevated. He did ask to go home if possible, I discussed with him the risks and benefits of discharge and he expressed understanding. He could benefit from another 24 hours of IV antibiotics however wound culture also does not demonstrate any organisms so I do not anticipate her having any significant bacterial information at this time. I discussed with him the need to transition to p.o. doxycycline 100 mg p.o. twice daily with outpatient follow-up, he will take this for about 10 days. Of note he did have a tetanus shot in April 2023 so does not appear that he needs another shot. I recommend that he follow-up with his PCP in 3 to 5 days for monitoring, there does not appear to be any further abscess to be cleaned. 2. Anxiety, depression, GERD are all chronic medical conditions which complicate his care. His home medications were continued where appropriate Physical Exam Narrative General: Alert, Oriented x3, Cooperative, No apparent distress HEENT: Atraumatic, right eye trauma, normocephalic Oral: Moist Mucosa Neck: Supple, No JVD Lungs: Diminished, Normal air movement, No rhonchi, No wheeze, No rales Cardiovascular: Regular rate, Regular Rhythm, Normal S1, Normal S2, No murmurs Abdomen: Soft, Non Tender, Non-Distended, No Hepato-splenomegaly Extremities: No edema, Capillary Refill Less than 3 Seconds Skin: Left wrist wound, dressing in place states redness is improved, swelling is also improved today with improved mobility Musculoskeletal: No Tenderness to Palpation of Joints or Extremities Neurological: No focal neurological deficits, Motor Exam 5/5 strength throughout, Sensory exam intact to light touch and pain Psych/Mental Status: Normal Affect, Appropriate Weight / BMI Weight Weight: 313 lb Body Mass Index (BMI) 42.4 ABG / Lab / Microbiology Data 03/01/24 06:20 03/01/24 06:20 Laboratory: Laboratory Results - last 24 hr 03/01/24 06:20: WBC 12.2 H, RBC 5.51, Hgb 14.6, Hct 45.6, MCV 82.8, MCH 26.5 L, MCHC 32.0, RDW Std Deviation 40.7, RDW Coeff of Armin 13.4, Plt Count 222, MPV 10.2, Immature Gran % (Auto) 0.400, Neut % (Auto) 70.3 H, Lymph % (Auto) 16.7 L, [place] % (Auto) 11.3 H, Eos % (Auto) 1.1, Baso % (Auto) 0.2, A bsolute Neuts (auto) 8.6 H, Absolute Lymphs (auto) 2.03, Nucleated RBC % 0, Sodium 139, Potassium 3.6, Chloride 108 H, Carbon Dioxide 24.0, Anion Gap 8, BUN 10, Creatinine 0.92, Estim Creat Clear Calc 146.66, Est GFR (MDRD) Af Amer 113, Est GFR (MDRD) Non-Af 93, BUN/Creatinine Ratio 10.8, G lucose 124 H, Calc (more content not included)...[facility] 05-28-2022 NoteHNO ID: [id number] Author: Shira Hanson RT(R) Service: Radiology Author Type: Technologist Type: Progress Notes Filed: 05/28/2022 4:33 PM Note Text: Radiology Service Progress Note PATIENT NAME: Bebeto Alicea DATE OF SERVICE: May 28, 2022 TIME: 4:23 PM PATIENT IDENTITY VERIFICATION COMPLETED USING TWO (2) IDENTIFIERS: Name and Date of confirmed by patient verbally. FALL SCREENING: Has the patient had 2 falls in the last year or 1 fall with injury or currently using an Ambulatory Assistive Device (Walker, Cane, Wheelchair, Crutches, etc.)? No PATIENT GENDER DATA: Male PATIENT RELEVANT IMPLANT DATA REVIEWED: Yes RADIOLOGY DEPARTMENT: General X-ray: Exam(s) Completed: Lower Extremity X-Ray(s): Ankle, Left and Wt. Bearing and Foot, Left and Wt. Bearing PERIPHERAL IV DATA: Not applicable SIGNED BY: RT Merlin(R) May 28, 2022 4:23 [facility]01-04-2023 NoteHNO ID: [id number] Author: Quiana Salter PA-C Service: ? Author Type: Physician Outfitter Cabin Type: Progress Notes Filed: 05/28/2022 4:40 PM Note Text: Subjective HPI HPI Bebeto Alicea is a 47 year old male who presents today for CC of L ankle pain x 3-4 weeks. Notes that it is radiating down into foot. Worse with bearing weight. It feels like a sharp nerve pain. History of sprain in the past but no recent mechanism of injury. 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 Pt has tried nothing OTC. BP 152/92 Pulse 95 Temp 37 ?C (98.6 ?F) Resp 21 Wt (!) 146.3 kg (322 lb 9.6 oz) SpO2 98% BMI 46.29 kg/m? ALLERGIES No Known Allergies ACTIVE PROBLEM LIST Sprain of Ankle, Unspecified Site Enthesopathy of Unspecified Site Allergic Rhinitis, Cause Unspecified Screening for Unspecified Condition Lumbago Obesity (Bmi 30-39.9) Sexual and Gender Identity Disorders Depression Learning Disability TYSON (obstructive sleep apnea) AHI 11.7 HST Shingles Carpal Tunnel Syndrome On Left Carpal Tunnel Syndrome On Right Family History Problem Relation Age of Onset Hypertension Mother Coronary Artery Disease Mother Genetic Paternal Grandfather Hypertension Brother Genetic Daughter Social History Tobacco Use Smoking status: Former Types: Cigarettes Quit date: 09/28/2005 Years since quittin.6 Smokeless tobacco: Never Substance Use Topics Alcohol use: Yes Alcohol/week: 2.5 standard drinks Types: 1 Glasses of Wine (5oz) per week Drug use: No Review of Systems Constitutional: Negative for chills, fever and malaise/fatigue. Musculoskeletal: Positive for joint pain. Negative for falls. Skin: Negative for rash. Objective BP 152/92 Pulse 95 Temp 37 ?C (98.6 ?F) Resp 21 Wt (!) 146.3 kg (322 lb 9.6 oz) SpO2 98% BMI 46.29 kg/m? Physical Exam Cardiovascular: Pulses: Dorsalis pedis pulses are 2+ on the left side. Posterior tibial pulses are 2+ on the left side. Musculoskeletal: Feet: Feet: Comments: Edema and tenderness primarily overlying lateral malleolus. TTP dorsal foot in area as outlined. Skin: Comments: Excoriations noted on L anterior westfall, superior to area of concern ASSESSMENT/PLAN: 1. Acute left ankle pain - ICD9: 719.47, ICD10: M25.572 (primary diagnosis) Unclear etiology. XR ordered to further evaluate. RICE therapy advised. Pain control addressed (will trial on rx strength anti-inflammatory); also discussed alternative for topical application with diclofenac/voltaren gel OTC. Podiatry referral placed for further evaluation and management. - XR ANKLE GENERAL 3V AP/LAT/OBL LEFT 2. Foot pain, left - ICD9: 729.5, ICD10: M79.672 See above - XR FOOT GENERAL 3V AP/LAT/OBL LEFT Pt advised to see PCP if symptoms persist or progress. Reviewed red flags with patient and when to seek care sooner. The patient indicates understanding of these issues and agrees with the plan. MELANY [facility]01-04-2023 Instructions* Patient Instructions* Quiana Salter PA-C - 05/28/2022 4:21 PM EST R.I.C.E. The general care of your injury includes the following: Resting, Icing, Compressing and Elevating the injured area. Remember this as RICE. REST: Limit the use of the injured body part. ICE: By applying ice to the affected area, swelling and pain can be reduced. Place some ice cubes in a re-sealable (Ziploc) bag and add some water. Put a thin washcloth between the bag and your skin.Apply the ice bag to the area for at least 20 minutes. Do this at least 4 times per day. Using the ice for longer times and more frequently is OK. NEVER APPLY ICE DIRECTLY TO THE SKIN. COMPRESS: Compression means to apply pressure around the injured area such as with a splint, cast or an sergio bandage. Compression decreases swelling and improves comfort. Compression should be tight enough to relieve swelling but not so tight as to decrease circulation. Increasing pain, numbness, tingling, or change in skin color, are all signs of decreased circulation. ELEVATE: Elevate the injured part. For example, elevate your foot by placing it on a chair while sitting, or propping it up on pillows when lying down. [facility] History of Present illness Narrative* Shira Hanson RT(R) - 05/28/2022 3:50 PM EST Radiology Service Progress Note PATIENT NAME: Bebeto Alicea DATE OF SERVICE: May 28, 2022 TIME: 4:23 PM PATIENT IDENTITY VERIFICATION COMPLETED USING TWO (2) IDENTIFIERS: Name and Date of confirmedby patient verbally. FALL SCREENING: Has the patient had 2 falls in the last year or 1 fall with injury or currently using an Ambulatory Assistive Device (Walker, Cane, Wheelchair, Crutches, etc.)? No PATIENT GENDER DATA: Male PATIENT RELEVANT IMPLANT DATA REVIEWED: Yes RADIOLOGY DEPARTMENT: General X-ray: Exam(s) Completed: Lower Extremity X- Ray(s): Ankle, Left and Wt. Bearing and Foot, Left and Wt. Bearing PERIPHERAL IV DATA: Not applicable SIGNED BY: RT Merlin(Haresh) May 28, 2022 4:23 PM documented in this encounterK[facility]01-04-2023 History of Present illness Narrative* Quiana Salter PA-C - 05/28/2022 3:33 PM EST Images from the original note were not included. Subjective HPI HPI Bebeto Alicea is a 47 year old male who presents today for CC of L ankle pain x 3-4 weeks. Notes that it is radiating down into foot. Worse with bearing weight. It feels like a sharp nerve pain. History of sprain in the past but no recent mechanism of injury. 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 Pt has tried nothin g OTC. BP 152/92 Pulse 95 Temp 37 C (98.6 F) Resp 21 Wt (!) 146.3 kg (322 lb 9.6 oz) SpO2 98% BMI 46.29 kg/m ALLERGIES No Known Allergies ACTIVE PROBLEM LIST Sprain of Ankle, Unspecified Site Enthesopathy of Unspecified Site Allergic Rhinitis, Cause Unspecified Screening for Unspecified Condition Lumbago Obesity (Bmi 30-39.9) Sexual and Gender Identity Disorders Depression Learning Disability TYSON (obstructive sleep apnea) AHI 11.7 HST Shingles Carpal Tunnel Syndrome On Left Carpal Tunnel Syndrome On Right Family History Problem Relation Age of Onset Hypertension Mother Coronary Artery Disease Mother Genetic Paternal Grandfather Hypertension Brother Genetic Daughter Social History Tobacco Use Smoking status: Former Types: Cigarettes Quit date: 09/28/2005 Years since quittin.6 Smokeless tobacco: Never Substance Use Topics Alcohol use: Yes Alcohol/week: 2.5 standard drinks Types: 1 Glasses of Wine (5oz) per week Drug use: No Review of Systems Constitutional: Negative for chills, fever and malaise/fatigue. Musculoskeletal: Positive for joint pain. Negative for falls. Skin: Negative for rash. Objective BP 152/92 Pulse 95 Temp 37 C (98.6 F) Resp 21 Wt (!) 146.3 kg (322 lb 9.6 oz) SpO2 98% BMI 46.29 kg/m Physical Exam Cardiovascular: Pulses: Dorsalis pedis pulses are 2+ on the left side. Posterior tibial pulses are 2+ on the left side. Musculoskeletal: Feet: Feet: Comments: Edema and tenderness primarily overlying lateral malleolus. TTP dorsal foot in area as outlined. Skin: Comments: Excoriations noted on L anterior westfall, superior to area of concern ASSESSMENT/PLAN: 1. Acute left ankle pain - ICD9: 719.47, ICD10: M25.572 (primary diagnosis) Unclear etiology. XR ordered to further evaluate. RICE therapy advised. Pain control addressed (will trial on rx strength anti- inflammatory); also discussed alternative for topical application with diclofenac/voltaren gel OTC. Podiatry referral placed for further evaluation and management. - XR ANKLE GENERAL 3V AP/LAT/OBL LEFT 2. Foot pain, left - ICD9: 729.5, ICD10: M79.672 See above - XR FOOT GENERAL 3V AP/LAT/OBL LEFT Pt advised to see PCP if symptoms persist or progress. Reviewed red flags with patient and when to seek care sooner. The patient indicates understanding of these issues and agrees with the plan. Quiana Salter PA-C documented in this encounterK[facility]07-[facility]-2022 NoteHNO ID: [id number] Author: Mariama Voss APRN.OSTOMY RN Service: ? Author Type: Nurse Practitioner Type: Progress Notes Filed: 11/22/2021 12:46 PM Note Text: Chief Complaint Patient presents with: Edema: pt states swelling in stu feet. lft foot worse accross toes burning sensation. Worried about db was border line diabetic HPI Bebeto Alicea is a 46 year old male who presents here today for Above Complaints. Bebeto is an established patient of Dr. Marino DO. Bebeto is a new patient to me today. Concerns today.. Swelling: BLE swelling to feet x numerous months. Non-pitting per pt. Intermittent. Depends on the day. No known fall or injury to feet. Reports intermittent bilateral numbness/tingling, burning sensation, and pins and needle feeling to bilateral toes that radiate up foot to ankle around the same time swelling began. Denies pain worse at night or when feet elevated vs depedent. Symptoms occur throughout day. Denies any known hx of DM. Does not check blood sugars at home. Last HgA1c was 5.4. Reports noticing an increase in thirst and urination over the past few months. Does report dry mouth. Last routine blood work in 2019. Component Latest Ref Rng AND Units 08/08/2019 Hemoglobin A1C 4.3 - 5.6 % 5.4 Estimated Average Glucose mg/dL 108 Hx of gender dysphoria. Transitioning from male to female gender. Was getting care through endocrinology at [facility] but [facility] d/t cost and location being closer to home. Pt is in the process of finishing paperwork to have chart transferred to our facility. Does report starting on spironolactone and estradiol in the past few months due to this process. [facility] -- pt reports all normal. Weight gain: Gradually over the past 2 years. Trying to go on diet and lose weight but has not been successful. Riding bike frequently for exercise. Admits that he has not been eating healthy and having a lot of microwavable meals. Reports staying away from pop, junk food, and candy when able. Elevated BP: No known hx of HTN. No anti-hypertensive medication use. Denies any headaches, CP, SOB, lightheadedness, or dizziness. Does not check BP at home. Last 14 Encounter BP Readings: Date: BP: 11/22/2021 160/84 03/15/2021 119/81[bp zara average[ 04/06/2019 136/82 09/02/2017 125/86 06/24/2017 150/86 06/18/2017 121/83[auto[ 06/03/2017 130/86 03/11/2017 138/84 01/19/2017 130/88 11/19/2016 136/82 11/27/2015 120/60 10/17/2015 134/84 09/17/2015 118/62 08/28/2015 120/80 Past medical history, appointments, medications, allergies reviewed. 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 - Hypertriglyceridemia 12/2013 - Impaired fasting blood sugar 10/2015 - Low HDL (under 40) 12/2013 - Manic depression (HCC) - TYSON (obstructive sleep apnea) - Shingles 05/2017 Previous Surgical History PAST SURGICAL HISTORY Procedure Laterality Date - PAST SURGICAL HISTORY OF 10/29/10 right eye removal - REPAIR OF NASAL SEPTUM Septoplasty - REVISE MEDIAN N/CARPAL TUNNEL SURG Right 08/06/2017 Right carpal tunnel release Family History FAMILY HISTORY Problem Relation Age of Onset - Hypertension Mother - Coronary Artery Disease Mother - Genetic Paternal Grandfather - Hypertension Brother - Genetic Daughter Patient Allergies ALLERGIES No Known Allergies Current Medications Current Outpatient Medications on File Prior to Visit Medication Sig - buPROPion XL (WELLBUTRIN XL) 150 mg 24 hr tablet Bupropion Xl Active 150 MG DAILY June 29, 2019 2:41pm - clindamycin (CLEOCIN) 300 mg capsule Take 1 capsule by mouth four times daily. - cyclobenzaprine (FLEXERIL) 10 mg tablet Take 1 tablet by mouth three times daily as needed for muscle spasm. - atorvastatin (LIPITOR) 40 mg tablet TAKE 1 TABLET BY MOUTH AT BEDTIME - etodolac (LODINE) 200 mg capsule Take 1 capsule by mouth twice daily. For low back pain (Patient not taking: Reported on 03/15/2021 ) - Cholecalciferol, Vitamin D3, 5,000 unit cap TAKE 1 CAPSULE BY MOUTH DAILY (Patient not taking: Reported on 03/15/2021) - omeprazole (PRILOSEC) 20 mg capsule Take 1 capsule by mouth once daily. 1/2 hour before breakfast (Patient not taking: Reported on 03/15/2021 ) - BIPAP RECOMMENDATIONS: ASV EPAP min 9 cmH2O, EPAP max 59muN1M, IPAP max 83zsD8E with PS 3-15 cmH2O and an auto back-up rate. Humidification and a medium [employer] Mask, filters, tubing, humidifier and lifetime supplies. Dx: TYSON - FLUoxetine (PROZAC) 10 mg capsule 1 daily x 5 days, then 2 daily (Patient not taking: Reported on 03/15/2021 ) No current facility-administered medications on file prior to visit. Social History Social History Tobacco Use - Smoking status: Former Smoker Quit date: 09/28/2005 Years sin (more content not included)...[facility]12-06-2021 NotePt called back into clinic. Pt advised provider or nurse will contact him to discuss Plan of care with him. ROL did not discuss any information below in message from provider. Pt can be reached at [phone]. Thank [facility][phone] NoteA prior authorization has been started for Estradiol tabs History or status of the PA can be found in Chart Review under Referral tab. Click on medication for PA status.[facility] [email or web address] SystemEvaluation noteNo assessment information availableWRegency Hospital Company Work Phone: Evaluation note* Diagnosis Acute left ankle pain- Primary Foot pain, left Pain in limb [facility] in this [facility] Dis[facility] instructionsAdditional Instructions Ice to heel. Rest. Motrin for pain and inflammation. Tylenol for pain. Get the shoe inserts the heel cups that all decrease the pain and inflammation. Follow-up with the games dealer if you are not improving. This could just be inflammation of the soft tissue. You might be developing an early heel spur.[facility] Work Phone: Reason for referral (narrative)No reason for referral information availableWRegency Hospital Company Work Phone: Reason for visit Narrative* Diagnostic Procedure Only (Urgent) - Closed Specialty Diagnoses / Procedures Referred By Lindsay ulrich Referred To Contact XR IMAGING Diagnoses Foot pain, left Procedures XR FOOT GENERAL 3V AP/LAT/OBL LEFT RADEX FOOT COMPLETE MINIMUM 3 VIEWS Quiana Salter PA-C [address] [place] [address] [place] [address] Referral ID Status Reason Start Date Expiration Date V isits Requested Visits Authorized [id number] Closed Auto-Generate d Referral 05/28/2022 06/27/2023 1 1 [facility] Summary Purpose Family History No Family History Records Found Relationship Condition Age at Onset Recorded Date/T cici Not Specified Cardiac disease Unknown Kidney disorder Unknown Advance Directives No Advanced Directives Records Found Advance Directive Response Recorded Date/ Time Living Will No November 29, 2021 1 1:14am Power of Extension Specialist No November 29, 2021 11:14am Advance Directive Response Recorded Date/ Time Living Will No May 14, 2 023 11:15pm Power of Extension Specialist No 2023 11:15pm Advance Directive Response Recorded Date/ Time Do you have a Healthcare Power of Extension Specialist? No September 27, 2024 11:48am Do you have a Healthcare Power of Extension Specialist? No December 12, 2024 6:36pm Chief Complaint and Reason for Visit Chief Complaint BACK Chief Complaint GLASS HIT BIG TOE Chief Complaint Admit Date COUGH September 27, 2024 10:43a m RIGHT HEEL PAIN December 12, 2024 5:58 pm Reason for Referral Specialty Diagnoses / Procedures Referred By Lindsay ulrich Referred To Contact Podiatry Diagnoses Acute left ankle pain Foot pain, left Procedures CONSULT TO PODIATRY OFFICE/OUTPATIENT [facility] 60-74 MINUTES Quiana Salter PA-C [address] [place] [address] Referral ID Status Reason Start Date Expiration Date Visits Requested Visits Authorized [id number] Authorized PCP Requested Referral 05/28/2022 05/28/2023 1 1 Specialty Diagnoses / Procedures Referred By Contac t Referred To Contact XR IMAGING Diagnoses Foot pain, left Procedures XR FOOT GENERAL 3V AP/LAT/OBL LEFT RADEX FOOT COMPLETE MINIMUM 3 VIEWS Quiana Salter PA-C [address] [place] [address] Xr Imaging Referral ID Status Reason Start Date Expiration Date V isits Requested Visits Authorized [id number] Closed Auto-Generate d Referral 05/28/2022 06/27/2023 1 1 Specialty Diagnoses / Procedures Referred By Contac t Referred To Contact XR IMAGING Diagnoses Acute left ankle pain Procedures XR ANKLE GENERAL 3V AP/LAT/OBL LEFT RADEX ANKLE COMPLETE MINIMUM 3 VIEWS Quiana Salter PA-C [address] [place] [address] Xr Imaging Referral ID Status Reason Start Date Expiration Date V isits Requested Visits Authorized [id number] Closed Auto-Generate d Referral 05/28/2022 06/27/2023 1 1 Additional Source Comments (unrecognized sect ion and content) No Status Records FoundNo Status Records FoundNo Status Records FoundNo Status Records Found INFORMATION SOURCE (unrecogn ized section and content) DATE CREATED AUTHOR 02/16/2021 [facility] ([place]) DATE CREATED AUTHOR AUTHOR'S ORGANIZ ATION 07/11/2021 [facility] DATE CREATED AUTHOR AUTHOR'S ORGANIZ ATION 05/28/2022 [facility] DATE CREATED AUTHOR AUTHOR'S ORGANIZ ATION 12/17/2024 [facility] Goals (unrecognized section and content) Goals may be documented in a n alternate sectionGoals may be documented in an alternate sectionGoals may be documented in an alternate section Source Comments (unrecognize d section and content) In the event this informatio n is protected by the Federal Confidentiality of Alcohol and Drug Abuse Patient Records regulations: The Federal rules restrict any use of the information to criminally investigate or prosecute any alcohol or drug abuse patient.[facility] Health[facility] the event this information is protected by the Federal Confidentiality of Alcohol and Drug Abuse Patient Records regulations: The Federal rules restrict any use of the information to criminally investigate or prosecute any alcohol or drug abuse patient.[facility] Reason for Visit (unrecogniz ed section and content) Reason Comments Pain (foot) Sharp aches in feet, left more than right x 3 or 4 weeks Care Teams (unrecognized sec tion and content) Manager Cost Relationship Specialty Start Date End Date Eric Valle DO [address] [place], [place] [address] PCP - General Family Medicine 10/05/13 Team Status: Active Member Role Status Dates Dr. Eric Valle DO Family Provider Active Dr. Eric Valle DO Primary Care Provider Active Team Status: Inactive Member Role Status Dates Dr. Eric Valle DO Primary Care Provider Active Dr. Morgan Agudelo DO Emergency Provider Active Manager Cost Relationship Specialty Start Date End Date Eric Valle DO [address] [place], [place] [address] PCP - General Family Medicine 10/05/13 Team Status: Active Member Role/Relationship Status Dates Dr. Eric Valle DO Primary Care Provider Active Team Status: Inactive Member Role/Relationship Status Dates Dr. Eric Valle DO Primary Care Provider Active Start: September 27, 2024 End: September 27, 2024 Dr. Bart Quintero MD Attending Provider Active Sta rt: September 27, 2024 End: September 27, 2024 Dr. Bart Quintero MD Emergency Provider Active Sta rt: September 27, 2024 End: September 27, 2024 Team Status: Inactive Member Role/Relationship Status Dates Dr. Eric Valle DO Primary Care Provider Active Start: December 12, 2024 End: December 12, 2024 Dr. Tyson Alvarado MD Emergency Provider Active S tart: December 12, 2024 End: December 12, 2024 FOR RECORDS PERTAINING TO PATIENTS WHO ARE OR HAVE BEEN ENROLLED IN A CHEMICAL DEPENDENCY/SUBSTANCEABUSE PROGRAM, SOME INFORMATION MAY BE OMITTED. This clinical summary was aggregated from multiple sources. Caution should be exercised in using it in the provision of clinical care. This summary normalizes information from multiple sources, and as a consequence, information in this document may materially change the coding, format and clinical context of patient data. In addition, data may be omitted in some cases. CLINICAL DECISIONS SHOULD BE BASED ON THE PRIMARY CLINICAL RECORDS. [facility] [employer] provides no warranty or guarantee of the accuracy or completeness of information in this document.
--- NOTE | 2025-05-06 14:46 | CT_ITS ---
PROCEDURE: CTA CHST, ABD, PEL W AND/OR WO N/A REASON FOR EXAM: BACK PAIN, RIGHT ARM PAIN, RULE OUT AORTIC DISSECT TECHNIQUE: Procedure Code: CTCTA.CHAP.2 Modality: CT Procedure: CTA CHST, ABD, PEL W AND/OR WO Coronal and Sagittal reconstruction series were provided. 3D MIP images were obtained. One or more dose reduction techniques were used (e.g., Automated exposure control, adjustment of the mA and/or kV according to patient size, use of iterative reconstruction technique. CONTRAST: Isovue 370 VOLUME: 100 mL RADIATION DOSE SUMMARY: CTDlvol: 81 mGy DLP: 3513 mGycm COMPARISON: October 12, 2020. Report was unavailable FINDINGS: CHEST: Lines and tubes: None Mediastinum: No mass Heart: Normal-size. No pericardial effusion. Thoracic Aorta: The timing and quality of the contrast bolus is diagnostic. There is no evidence of aortic rupture or dissection. No aneurysm. Very minimal atherosclerotic plaque. Lungs and Airways: No consolidation, mass or worrisome nodule. Minimal linear atelectasis inferior lingula. Pleura: No pleural effusion or pneumothorax. Bones: No fracture ABDOMEN AND PELVIS: Liver: Non cirrhotic. No mass seen in the arterial phase. Gallbladder: Normal Spleen: Normal Pancreas: Normal Adrenals: Normal Kidneys: Left midpole cyst is 4.0 x 2.7 cm. No collecting system dilation. Bladder: Normal Reproductive Organs: Normal male Bowel: Normal. The appendix is normal. Vasculature: The aorta is normal caliber. No aneurysm or rupture. No dissection. Celiac axis, SMA, ZULEMA, renal arteries are patent. Common iliac, deep iliac are normal. Peritoneum / Retroperitoneum: No free air, free fluid or mass4 Bones: Unremarkable. CT/CTA Chst, Abd, Pel W and/or WO IMPRESSION: 1. No acute aortic syndrome. 2. No acute abnormality of the chest 3. No acute abnormality of the abdomen. Simple left renal cyst is benign. Lan buenrostro 1. No follow-up required. 4. No acute abnormality in the pelvis. Reading Location: [facility]
--- NOTE | 2025-05-06 14:46 | CT_ITS ---
PROCEDURE: SPINE LUMBAR WITHOUT CONTRAST 05/06/2025 REASON FOR EXAM: MIDLINE LOW BACK PAIN TECHNIQUE: Procedure Code: CTSPL Modality: CT Procedure: SPINE LUMBAR WITHOUT CONTRAST Coronal and Sagittal reconstruction series were provided. One or more dose reduction techniques were used (e.g., Automated exposure control, adjustment of the mA and/or kV according to patient size, use of iterative reconstruction technique COMPARISON: October 12, 2020 RADIATION DOSE SUMMARY: CTDlvol: 81 mGy DLP: 3513 mGycm FINDINGS: Vertebrae: No fracture seen. Schmorl's node superior endplate of L4. Alignment: Mild straightening. L1-2: Marginal endplate spurring anteriorly. Mild facet hypertrophy, [id number]-right. L2-3: Marginal endplate spurring anteriorly. L3-4: Mild, diffuse disc bulge. L4-5: Mild, diffuse disc bulge L5-S1: Mild, diffuse disc bulge Sacrum: Unremarkable CT/Spine Lumbar without Contrast IMPRESSION: No fracture. Straightening of the lumbar lordosis. Consider spasm. Reading Location: [id number]
--- NOTE | 2025-05-06 14:47 | EKG12_ITS ---
Test Reason : Blood Pressure : */* mmHG Vent. Rate : 79 BPM Atrial Rate : 79 BPM P-R Int : 150 ms QRS Dur : 102 ms QT Int : 366 ms P-R-T Axes : 57 -16 20 degrees QTcB Int : 419 ms Normal sinus rhythm Normal ECG Confirmed by IRIS BURKETT, GLORIA ([id number]), video news editor ALLEY FITZPATRICK ([id number]) on 05/08/2025 6:43:27 AM Referred By: Confirmed By: GLORIA SIMMONS MD
--- NOTE | 2025-05-06 15:12 | ED.VIS.BACK ---
HPI <Dr. Savannah Christensen MD - Last Filed: 05/07/25 08:44> History of Present Illness Chief Complaint: Back Narrative Narrative: Patient is a 49-year-old male presenting to the emergency department for back pain and right arm pain. Patient states that he was carrying around buckets of salt to put on the sidewalk last night and is unsure if this what caused his symptoms. He states last night he started having low back pain that is worse than normal. States that since 2018 has had chronic back pain but this is much worse. He denies taking anything for pain prior to arrival. He states that he does not take his blood pressure medication which include hydrochlorothiazide and lisinopril. States he stopped taking it in March. He also endorses right upper arm pain. In the triage note he reportedly told nursing staff that he was having right arm swelling. He states that it hurts like it swollen. He denies any falls or trauma to his back. Denies any fever or chills. Denies any red flag back pain signs including saddle anesthesia, bowel or bladder retention or incontinence, immunocompromise status, diabetes, IV drug use, numbness or weakness in his legs. Denies abdominal pain, nausea or vomiting. [facility] <Dr. Savannah Christensen MD - Last Filed: 05/07/25 08:44> [facility] Medical History MRSA (methicillin resistant staph aureus) culture positive Hypertension Hypercholesterolemia Depression Arthritis History of eye injury Home Medications ?Medication ?Instructions ?Recorded ?Last Taken ?Type hydrochlorothiazide 12.5 mg tablet 12.5 mg PO DAILY #30 tabs 09/27/24 Unknown Rx lisinopril 10 mg tablet 10 mg PO DAILY #30 tabs 09/27/24 Unknown Rx hydrochlorothiazide 12.5 mg capsule 12.5 mg PO DAILY #30 caps 05/06/25 Unknown Rx lisinopril 10 mg tablet 10 mg PO DAILY #30 tabs 05/06/25 Unknown Rx Allergy/AdvReac Type Severity Reaction Status Date / Time No Known Allergies Allergy Verified 05/06/25 14:27 Family History Other Heart disease Kidney disease Surgical History History of facial surgery History of carpal tunnel release Social History Smoking Status: Former smoker ROS <Dr. Savannah Christensen MD - Last Filed: 05/07/25 08:44> ROS ED ROS Narrative See HPI EXAM <Dr. Savannah Christensen MD - Last Filed: 05/07/25 08:44> Physical Exam Narrative Exam Narrative: Vital signs: Reviewed General: Alert and oriented x 3. No acute distress. Nontoxic appearing. Obese. HEENT: Head is normocephalic and atraumatic, sinuses nontender, pupils equal round and reactive. Nares are patent. Oropharynx and throat exams normal. Neck: Supple without lymphadenopathy nontender Cardiovascular: Regular rate and rhythm, no murmurs. No rubs or gallops. Normal S1 and S2. Radial pulse and DP/PT pulses are 2+ and symmetric throughout. Respiratory: Clear to auscultation bilaterally. No wheezes, rales, rhonchi Abdominal: Soft and nontender. Normal bowel sounds. No guarding or rebound. Nonsurgical abdomen Back: There is no midline cervical or thoracic spinal tenderness to palpation. There is midline lower lumbar spinal tenderness to palpation. There is no paraspinal tenderness to palpation. There is no rashes to the back. There is no CVA tenderness. Extremities: No lower extremity edema. There is no deformity to the right upper extremity. There is no swelling. Radial pulse intact. Motor and sensation intact of the entire right arm at the shoulder, elbow, wrist and hand. There is no erythema. No tenderness. No bruising. Normal range of motion. Normal sensation. Skin: No rash or redness. Neurological: Cranial nerves II through XII are grossly intact. Normal strength and sensation. Normal cerebellar function The rest of the physical exam is unremarkable Const Vital Signs: 05/06/25 14:24 05/06/25 17:08 05/06/25 18:13 Temperature 98 F Temperature Source Temporal Pulse Rate 91 70 86 Respiratory Rate 18 12 12 Blood Pressure 200/104 H 174/106 H 185/97 H Blood Pressure Mean 136 128 126 Pulse Ox 98 98 100 Oxygen Delivery Method Room Air Room Air Room Air 05/06/25 18:15 Temperature 97.6 F L Temperature Source Pulse Rate 86 Respiratory Rate 12 Blood Pressure 185/97 H Blood Pressure Mean 126 Pulse Ox 100 Oxygen Delivery Method <Dr. Tyson Alvarado MD - Last Filed: 05/06/25 18:17> Physical Exam Const Vital Signs: 05/06/25 14:24 05/06/25 17:08 05/06/25 18:13 Temperature 98 F Temperature Source Temporal Pulse Rate 91 70 86 Respiratory Rate 18 12 12 Blood Pressure 200/104 H 174/106 H 185/97 H Blood Pressure Mean 136 128 126 Pulse Ox 98 98 100 Oxygen Delivery Method Room Air Room Air Room Air 05/06/25 18:15 Temperature 97.6 F L Temperature Source Pulse Rate 86 Respiratory Rate 12 Blood Pressure 185/97 H Blood Pressure Mean 126 Pulse Ox 100 Oxygen Delivery Method MDM <Dr. Savannah Christensen MD - Last Filed: 05/07/25 08:44> [facility] Narrative Medical decision making narrative: Patient is a 49-year-old male presenting to the emergency department for low back pain right arm pain. Patient was seen and examined. Vitals are stable, he is markedly hypertensive at 200/104. He states that he is supposed to be on hydrochlorothiazide and lisinopril but has not been on this medication since March. Given home dose of lisinorpil. He is resting in bed comfortably in no acute distress. Differential includes but is not limited to: Musculoskeletal, ACS, aortic dissection Given morphine for pain control. EKG shows normal sinus rhythm at a rate of 79 with no ischemic changes. No dysrhythmia. CBC with no leukocytosis and a normal hemoglobin. BMP with no significant abnormalities. Initial troponin within normal limits. CTA chest abdomen pelvis ordered given patient HTN and obesity with arm and back pain to rule out aortic pathology. I think this is less likely given the well appearing status of the patient and being noncompliant with his hypertensive medications at home. CT lumbar recons also ordered given the midline tenderness in the lower lumbar back. Again as stated in the HPI, I have no concern for spinal cord injury given the normal neurologic exam and negative for red flag back pain signs. Clinical impression Back pain Arm pain Hypertension History & Record Review Discussion w/independent historian: Patient Lab Data Attestation: I reviewed the patient's lab results. Labs: Laboratory Results - last 24 hr 05/06/25 15:05 WBC 9.1 RBC 5.36 Hgb 14.5 Hct 45.1 MCV 84.1 MCH 27.1 MCHC 32.2 RDW Std Deviation 40.7 RDW Coeff of Armin 13.2 Plt Count 242 MPV 10.3 Immature Gran % (Auto) 0.500 Neut % (Auto) 60.0 Lymph % (Auto) 26.1 [place] % (Auto) 10.6 H Eos % (Auto) 2.1 Baso % (Auto) 0.7 Absolute Neuts (auto) 5.5 Absolute Lymphs (auto) 2.39 Nucleated RBC % 0 Sodium 138 Potassium 4.1 Chloride 103 Carbon Dioxide 25.7 Anion Gap 9 BUN 14 Creatinine 1.16 Estim Creat Clear Calc 113.00 Est GFR (MDRD) Non-Af 78 BUN/Creatinine Ratio 12.4 Glucose 101 H Calcium 9.2 Troponin T High Sens 7 Radiography Diagnostic Testing: Clinical Impression(s) from Imaging Studies Chest/Abdomen/Pelvis CTA 05/06/25 14:46 IMPRESSION: 1. No acute aortic syndrome. 2. No acute abnormality of the chest 3. No acute abnormality of the abdomen. Simple left renal cyst is benign. [place] 1. No follow-up required. 4. No acute abnormality in the pelvis. Reading Location: [id number] Lumbar Spine CT 05/06/25 14:46 IMPRESSION: No fracture. Straightening of the lumbar lordosis. Consider spasm. Reading Location: [facility] <Dr. Tyson Alvarado MD - Last Filed: 05/06/25 18:17> [facility] Narrative Medical decision making narrative: Patient is a 49-year-old male presenting to the emergency department for low back pain right arm pain. Patient was seen and examined. Vitals are stable, he is markedly hypertensive at 200/104. He states that he is supposed to be on hydrochlorothiazide and lisinopril but has not been on this medication since March. Given home dose of lisinorpil. He is resting in bed comfortably in no acute distress. Differential includes but is not limited to: Musculoskeletal, ACS, aortic dissection Given morphine for pain control. EKG shows normal sinus rhythm at a rate of 79 with no ischemic changes. No dysrhythmia. CBC with no leukocytosis and a normal hemoglobin. BMP with no significant abnormalities. Initial troponin within normal limits. CTA chest abdomen pelvis ordered given patient HTN and obesity with arm and back pain to rule out aortic pathology. I think this is less likely given the well appearing status of the patient and being noncompliant with his hypertensive medications at home. CT lumbar recons also ordered given the midline tenderness in the lower lumbar back. Again as stated in the HPI, I have no concern for spinal cord injury given the normal neurologic exam and negative for red flag back pain signs. Clinical impression Back pain Arm pain Hypertension Patient turned over to me around 5:00 from the initiating physician. I was instructed to check the CAT scan lumbar spine which is read as negative by the radiologist. Repeat exam patient is doing well at 6:15 PM. Will be discharged to home. Lab Data Labs: Laboratory Results - last 24 hr 05/06/25 15:05 WBC 9.1 RBC 5.36 Hgb 14.5 Hct 45.1 MCV 84.1 MCH 27.1 MCHC 32.2 RDW Std Deviation 40.7 RDW Coeff of Armin 13.2 Plt Count 242 MPV 10.3 Immature Gran % (Auto) 0.500 Neut % (Auto) 60.0 Lymph % (Auto) 26.1 [place] % (Auto) 10.6 H Eos % (Auto) 2.1 Baso % (Auto) 0.7 Absolute Neuts (auto) 5.5 Absolute Lymphs (auto) 2.39 Nucleated RBC % 0 Sodium 138 Potassium 4.1 Chloride 103 Carbon Dioxide 25.7 Anion Gap 9 BUN 14 Creatinine 1.16 Estim Creat Clear Calc 113.00 Est GFR (MDRD) Non-Af 78 BUN/Creatinine Ratio 12.4 Glucose 101 H Calcium 9.2 Troponin T High Sens 7 Radiography Diagnostic Testing: Clinical Impression(s) from Imaging Studies Chest/Abdomen/Pelvis CTA 05/06/25 14:46 IMPRESSION: 1. No acute aortic syndrome. 2. No acute abnormality of the chest 3. No acute abnormality of the abdomen. Simple left renal cyst is benign. [place] 1. No follow-up required. 4. No acute abnormality in the pelvis. Reading Location: [id number] Lumbar Spine CT 05/06/25 14:46 IMPRESSION: No fracture. Straightening of the lumbar lordosis. Consider spasm. Reading Location: [id number] Discharge Plan Triage Chief Complaint: Back Other Complaint: Upper Extremity Injury ED Provider: Savannah Christensen Dx/Rx/DC Orders Clinical Impression: Back pain, Arm pain, right, Hypertension Instructions: Understanding High Blood Pressure, ED Back Pain (Acute or Chronic), ED RICE Prescriptions: New lisinopril 10 mg tablet 10 mg PO DAILY Qty: 30 0RF hydrochlorothiazide 12.5 mg capsule 12.5 mg PO DAILY Qty: 30 0RF No Action lisinopril 10 mg tablet 10 mg PO DAILY Qty: 30 0RF hydrochlorothiazide 12.5 mg tablet 12.5 mg PO DAILY Qty: 30 0RF Primary Care Provider: Eric Pichardo Referrals: Eric Pichardo DO [Primary Care Provider, Medical] - As soon as possible Activity Restrictions/Additional Instructions: Please take your blood pressure medications. Your evaluation in the Emergency Department did not reveal any acute reason for admission. However, I want to emphasize that you may be early in the course of a disease process or illness even if it is not present. For this reason you should follow-up within 24 hours for reevaluation with either your primary care physician or if necessary back here in the Emergency Department. You should return to the Emergency Department immediately if your symptoms worsen or new symptoms develop. Print Language: Macedonian Disposition Disposition: Home, Self Care Discharge Date/Time: 05/06/25 18:26
[2025-05-06 15:18] LABS: Hematocrit 45.1 % (40-54); Hemoglobin 14.5 g/dL (13.0-16.5); Immature Granulocytes Count 0.050 X10^3/uL (0.0-0.0); Mean Corp Hgb Conc 32.2 g/dL (32-36); Mean Corpuscular Volume 84.1 fL (80-94); Mean Platelet Vol. 10.3 fl (6.2-12.0); NRBC Flagged by Analyzer 0 % (0-5); Platelet Count 242 K/mm3 (150-450); RBC Distribution Width CV 13.2 % (11.6-14.6); RBC Distribution Width SD 40.7 fl (35.1-43.9); Red Blood Count 5.36 M/mm3 (4.6-6.2); White Blood Count 9.1 K/mm3 (4.4-11.0)
[2025-05-06 15:38] LABS: Anion Gap 9 (5-15); BUN 14 mg/dL (4-19); BUN/Creat Ratio 12.4 RATIO (10-20); Calcium,Total 9.2 mg/dL (7.6-11.0); Carbon Dioxide 25.7 mmol/L (21.0-32.0); Chloride 103 mmol/L (98-108); Estimated Creatinine Clearance 113.00 ml/min (50-250); Glucose 101 mg/dL (70-99); Potassium 4.1 mmol/L (3.3-5.1); Troponin T High Sensitivity 7 ng/L (<=22)
[2025-05-06 17:08] VITALS: BP 174/106; PULSE 70; RESP 12; O2SAT 98
[2025-05-06 18:13] VITALS: BP 185/97; PULSE 86; RESP 12; O2SAT 100
[2025-05-06 18:15] VITALS: BP 185/97; PULSE 86; RESP 12; TEMP 36.4; O2SAT 100
== END 2025-05-06 18:26 | disposition home or self-care (01) ==
PROVIDERS: Emergency Provider Student in an Organized Health Care Education/Training Program; PCP Student in an Organized Health Care Education/Training Program; Visit Provider Student in an Organized Health Care Education/Training Program
DX: M54.9 Dorsalgia, unspecified (principal); M79.601 Pain in right arm; I10 Essential (primary) hypertension; Z87.891 Personal history of nicotine dependence; E78.00 Pure hypercholesterolemia, unspecified; Z79.899 Other long term (current) drug therapy
CPT/HCPCS: 71275; 72131; 74174; 80048; 84484; 85025; 93005; 96374; 99285; Q9967; A4216